=== PATIENT | female | born 1950 | race Caucasian/White ===

== ENCOUNTER → 2016-10-18 | Outpatient (CLI) | payer BC | END | disposition home or self-care (01) | LOC: LABWHC1 12:45 | PROVIDERS: ATTEND Orthopaedic Surgery Orthopaedic Surgery of the Spine | DX: Z01.818 Encounter for other preprocedural examination (principal) | CPT/HCPCS: 86850; 86900; 86901 ==

== ENCOUNTER 2016-10-20 11:13 | Day surgery (SDC) | payer BC ==
[2016-10-14 12:23] VITALS: BMI 30.2
[~2016-10-20 11:13] MED LIST: BACITRACIN 50,000 UNIT, POLYMYXIN B 500,000 UNIT in SODIUM CHLORIDE 0.9% IRRIGATIO 1,00... IRRIGATION ONE; CLINDAMYCIN 900 MG in DEXTROSE 5% IN WATER 50 ML IVPB ONE; LACTATED RINGERS 1,000 ML IV SCH; LIDOCAINE 1% 20 ML VIAL (10MG/ML) FOR IV START INTRADERMA PRN
[2016-10-20] MEDS ORDERED: LIDOCAINE 1% 20 ML VIAL (10MG/ML) FOR IV START INTRADERMA ONE (12:26)
[2016-10-20] MEDS: ONDANSETRON 4 MG/2 ML VIAL IVP ONE ×2 (12:32→14:52)
[2016-10-20] MEDS ORDERED: SUCCINYLCHOLINE CHLORIDE 100 MG/5 ML SYR IV ONE (13:02)
[2016-10-20] MEDS ORDERED: MIDAZOLAM 2 MG/2 ML VIAL ONE (13:02)
[2016-10-20] MEDS ORDERED: PROPOFOL 10 MG/ML 20 ML VIAL IV ONE (13:02)
[2016-10-20] MEDS ORDERED: GELATIN SPONGE,ABSORB (LARGE) 1 EACH SPONGE TOPICAL ONE (13:02)
[2016-10-20] MEDS ORDERED: LIDOCAINE 1% INJ 10MG/ML (20 ML MDV) ONE (13:02)
[2016-10-20] MEDS ORDERED: DEXAMETHASONE SOD PHOS (MDV) 100 MG/10 ML VIAL ONE (13:02)
[2016-10-20] MEDS ORDERED: THROMBIN (BOVINE) 5,000 UNIT VIAL TOPICAL ONE (13:02)
[2016-10-20] MEDS ORDERED: LIDOCAINE 0.5%-EPI 1:200,000 50 ML VIAL SQ ONE (13:02)
[2016-10-20] MEDS ORDERED: methylPREDNISolone ACETATE 40 MG/ML 1 ML VIAL MISCELLANE ONE (13:02)
[2016-10-20] MEDS ORDERED: KETOROLAC 30 MG/ML 1 ML VIAL ONE (13:02)
[2016-10-20] MEDS ORDERED: HYDROmorphone (PF) 1 MG/ML ONE (13:02)
[2016-10-20] MEDS ORDERED: fentaNYL (PF) 50 MCG/ML 2 ML AMP ONE (13:02)
--- NOTE | 2016-10-20 13:55 | XR ---
EXAMINATION TYPE: XR lumbar spine 1V DATE OF EXAM: 10/20/2016 1:49 PM COMPARISON: NONE HISTORY: Laminectomy TECHNIQUE: 4 seconds of fluoroscopy time was provided. 1 image is presented. IMPRESSION: 1. Fluoroscopy for procedure documentation.
--- NOTE | 2016-10-20 13:57 | FL ---
Fluoroscopy INDICATION: Pain FINDINGS: Fluoroscopy time: 4 seconds. IMPRESSIONS: 1. Documentation of fluoroscopy.
[2016-10-20] MEDS ORDERED: LACTATED RINGERS 1,000 ML IV ONE (14:11)
[2016-10-20] MEDS ORDERED: DIAZEPAM 5 MG TAB PO PRN (14:21)
[2016-10-20] MEDS ORDERED: HYDROmorphone 1 MG/ML 1 ML SYRINGE IVP PRN (14:21)
[2016-10-20] MEDS ORDERED: BENZOCAINE/MENTHOL LOZENG 1 EACH LOZENGE MUCOUS MEM PRN (14:21)
[2016-10-20] MEDS ORDERED: ONDANSETRON 4 MG/2 ML VIAL IVP PRN (14:22)
[2016-10-20] MEDS ORDERED: IBUPROFEN 600 MG TAB PO PRN (14:22)
[2016-10-20] MEDS ORDERED: HYDROcodone/APAP 5-325MG 1 EACH TAB PO PRN (14:25)
--- NOTE | 2016-10-20 14:31 | P.OP ---
Date of Procedure: 10/20/16 Preoperative Diagnosis: Herniated nucleus pulposus L4 5 Right lower extremity weakness and radiculopathy Spondylolisthesis Postoperative Diagnosis: Same Anesthesia: GETA Pathology: none sent Condition: stable Disposition: PACU Description of Procedure: BRIEF OPERATIVE NOTE Preoperative Diagnosis: Herniated nucleus pulposis L4 5, right lower extremity radiculopathy and weakness, spondylolisthesis Postoperative Diagnosis: Same Procedure: Laminectomy and decompression L4-L5 Discectomy for decompression L4-L5 Use of fluoroscopic guidance Surgeon: Dr. Joseph Reporting Coordinator: Gio Hernandez is present throughout the entire the case persistence during positioning, dissection, exposure, visualization, and all crucial elements of the case as well as closure. Anesthesia: General anesthesia Estimated blood loss: Less than 25 mL Complications: None apparent Components implanted: None Disposition: To recovery room in good stable condition. OPERATIVE INDICATIONS The patient has been having issues in their lower back and lower extremities. The patient was found have a herniated nucleus pulposis at L4 5 with severe stenosis at the right foramen which correlated with her severe right lower extremity pain and radiculopathy with some weakness. The patient was also found to have spondylolisthesis L4 5 and L3 4. The patient has been through conservative treatment. We discussed various treatment options including surgery, and the patient wishes to proceed with surgery; the patient was interested in trying decompression alone with discectomy at L4 5. we discussed at length the possibility of decompression and fusion versus possibility of decompression alone. We discussed the risk, patient's alternatives and benefits associate with these different approaches. With a spondylolisthesis the patient and her understood the risk of recurrent herniation, stenosis or disc degeneration. We discussed the risk, patient's alternatives and benefits of surgery including but not limited to, risk of bleeding risk of infection, risk of need for further surgery, risk of decreased, loss of motion, loss of function, nerve damage, paralysis, heart attack, blindness and . OPERATIVE SUMMARY After discussing all the risks, patient alternatives and benefits at length, the patient elected to proceed with surgical intervention, signed informed consent, and presented for their procedure. The patient was seen and examined in the preoperative holding area and the surgical site was marked. The patient was given antibiotics and brought to the operating room. The patient was sedated and intubated by anesthesia in standard fashion. The patient was positioned on to the operating room table in a prone position on the appropriate frame which was well-padded and well molded. We were careful to pad any bony prominences and pressure points. We were careful to maintain the patient's cervical spine and good neutral alignment and position throughout. The patient was prepped and draped in a normal standard fashion. An appropriate timeout and keystone protocol performed. We were able to proceed with the surgery. Fluoroscopy was utilized to establish the appropriate level. The local wound area was infiltrated with local anesthetic. An incision was made at the midline longitudinally over the appropriate levels At L4 5. Dissection was taken down subcutaneously to the level of the fascia which was split midline. Dissection was taken over the lamina. Intraoperative fluoroscopy was taken which showed a marker at the appropriate level At L4 5 at L4 5. With the appropriate level positively confirmed, we were able to proceed with laminectomy. The wound was copiously irrigated and suctioned dry as had been done periodically throughout the case. I performed a laminectomy with a combination of curettes and a high-speed bur and Kerrison rongeurs. A small medial facetectomy was performed again further access. A partial foraminotomy was also performed. Portions of the ligamentum flavum were taken down to expose the dura and traversing nerve root. I was able to mobilize the traversing nerve root and gain access to the disc space. Note was made of obvious compression from the disc. Protecting the soft tissue structures, a small annulotomy was established. There was a large rent in the disc as well and there were extruded fragments. I was able to remove all extruded fragments of disc. I was able to perform discectomy and remove any extruded disc fragments and any loose fragments from within the disc itself. There is some disc desiccation noted. I tried to preserve the disc annulus that appeared stable. There were no further extruded fragments noted. There is no evidence of dural tear or leak. Good hemostasis maintained. The wound was copiously irrigated and suctioned dry. Good decompression and discectomy was noted. We were able to proceed with closure. The fascia was closed for a watertight closure. The subcuticular tissue was closed with absorbable suture. The wound was cleaned and dried and dressed with the appropriate dressing. The drapes were broken down. The patient was gently rolled back onto their hospital bed being careful to maintain their cervical spine and good neutral alignment and position. They were woken up by anesthesia, extubated, and brought to the recovery room in good stable condition. The patient will be admitted to the hospital for observation and for appropriate postoperative care, medical management and monitoring. We will continue to follow them closely about the postoperative course.
[2016-10-20] MEDS: HYDROmorphone 1 MG/ML 1 ML SYRINGE IVP PRN ×2 (14:52→14:59)
[2016-10-20] MEDS: GABAPENTIN 400 MG CAP PO SCH ×2 (16:27→19:28)
[2016-10-20] MEDS: CYCLOBENZAPRINE 10 MG TAB PO SCH ×2 (17:26→21:01)
[2016-10-20] MEDS: SYMBICORT 160-4.5 MCG INHALER INHALATION SCH (19:15)
[2016-10-20] MEDS: SODIUM CHLORIDE 0.9% 1,000 ML IV SCH (20:58)
[2016-10-20] MEDS ORDERED: LOSARTAN-HCTZ 50-12.5 MG 1 EACH TAB PO SCH (21:00)
[2016-10-20] MEDS ORDERED: ATORVASTATIN 40 MG TAB PO SCH (21:00)
[2016-10-21] MEDS: CLINDAMYCIN 300 MG in DEXTROSE 5% IN WATER 50 ML IVPB SCH ×4 (00:17→07:38)
[2016-10-21] MEDS: SODIUM CHLORIDE 0.9% 1,000 ML IV SCH (05:35)
[2016-10-21] MEDS ORDERED: LEVOTHYROXINE 50 MCG TAB PO SCH (06:30)
[2016-10-21 07:50] VITALS: BP 140/69; PULSE 98; RESP 15; TEMP 98
[2016-10-21] MEDS: GABAPENTIN 400 MG CAP PO SCH (08:27)
[2016-10-21] MEDS: CYCLOBENZAPRINE 10 MG TAB PO SCH (08:27)
--- NOTE | 2016-10-21 08:50 | P.DS ---
Providers Date of admission: 10/20/2016 Expected date of discharge: 10/21/16 Attending physician: Elizabeth Joseph Primary care physician: Neeta Jeff - Discharge Diagnosis(es) (1) Herniated nucleus pulposus, L4-5 right Current Visit: Yes Status: Acute (2) Lumbar back pain with radiculopathy affecting right lower extremity Current Visit: Yes Status: Acute (3) Right leg weakness Current Visit: Yes Status: Acute (4) Spondylolisthesis, lumbar region Current Visit: Yes Status: Acute Hospital Course: This is a pleasant 66 year old female who presented with significant right lower extremity radiculopathy, L4-5 herniated nucleus pulposus, left lower external weakness, and spondylolisthesis who failed outpatient conservative therapy. She admitted for laminectomy and decompression with discectomy at L4- 5. The patient tolerated the procedure well and did well postoperatively. She states she has had significant improvement in her right lower extremity radiculopathy. She's been able to ambulate to the restroom without significant difficulty. She continues to have some discomfort but significantly less pain. She is not currently experiencing significant pain at the surgical site. Condition on day of discharge stable. Patient will be discharged home. Patient was cleared preoperatively for surgery by Dr. Loera. Patient currently denies any nausea, vomiting, fever, or chills. Patient is eating and voiding freely without difficulty. Patient may shower Tegaderm dressing intact. Patient may remove Tegaderm dressing in 3 days and shower without a dressing at that time. Patient should keep DermaBond intact and allow it to fall off naturally. Patient should refrain from driving until at least after their first follow-up appointment in the office. Patient should avoid excessive bending, lifting, and twisting; no lifting greater than 10 pounds. Patient states her pain has been controlled while in the hospital. She does take Flexeril home and states she does not have enough medication at home. She will be given a refill for this medication. She currently states she feels she has enough pain medication at home and she will not be given a pain medication prescription at discharge. Physical Exam on day of discharge: Patient is awake, alert, and oriented 3 Vital signs stable Good chest excursion with deep inspiration and expiration Abdomen soft nontender No signs or symptoms of DVT; no calf pain Extensor hallucis longus, plantarflexion, and dorsiflexion positive sustained bilateral lower extremities Incision is clean, dry, and intact; no erythema, purulence, or signs of infection Tegaderm dressing and non-stick Telfa intact Pneumatic cuffs intact bilateral lower extremities Procedures: Laminectomy and decompression with discectomy at L4-5 Patient Condition at Discharge: Stable Plan - Discharge Summary New Discharge Prescriptions: Cyclobenzaprine [Flexeril] 10 mg PO TID PRN #90 tab PRN Reason: Muscle Spasm Discharge Medication List Celecoxib [CeleBREX] 200 mg PO DAILY 06/23/14 [History] Levothyroxine Sodium [Synthroid] 50 mcg PO DAILY 06/23/14 [History] Losartan/Hydrochlorothiazide [Losartan-Hctz 50-12.5 mg Tab] 1 caplet PO HS 06/23 [History] Rosuvastatin [Crestor] 20 mg PO HS 06/23/14 [History] Vitamin E 1,000 unit PO DAILY 04/16/16 [History] Cyclobenzaprine [Flexeril] 10 mg PO TID #30 tab 08/19/16 [Rx] Budesonide/Formoterol Fumarate [Symbicort 160-4.5 Mcg Inhaler] 2 puff INHALATION BID 10/14/16 [History] Gabapentin [Neurontin] 400 mg PO TID 10/14/16 [History] HYDROcodone/APAP 5-325MG [[place] 5-325] 1 - 2 tab PO Q8H PRN 10/14/16 [History] Cyclobenzaprine [Flexeril] 10 mg PO TID PRN #90 tab 10/21/16 [Rx] Follow up Appointment(s)/Referral(s): Gio Alamo, JODEE [PHYSICIAN [employer]] - 2 Weeks (Patient may follow-up with Gio Alamo PA-C or Dr. Ranjit Joseph at [facility] in 2-3 weeks following discharge. ) Activity/Diet/Wound Care/Special Instructions: 1. Patient may shower Tegaderm dressing intact. 2. Patient may remove Tegaderm dressing in 3 days and shower without a dressing at that time. 3. Patient should keep Dermabond intact and allow it to fall off naturally. 4. Patient should refrain from driving until at least after their first follow- up appointment in the office. 5. Patient should avoid excessive bending, twisting, and lifting; no lifting greater than 10 pounds 6. Do not soak in tub Discharge Disposition: HOME SELF-CARE
[2016-10-21] MEDS: SYMBICORT 160-4.5 MCG INHALER INHALATION SCH (08:55)
[2016-10-21] MEDS ORDERED: MELOXICAM 7.5 MG TAB PO SCH (09:00)
[2016-10-21] MEDS ORDERED: VITAMIN E (DL,TOCOPHERYL ACET) 400 UNIT CAP PO SCH (09:00)
== END 2016-10-21 12:49 | disposition home or self-care (01) ==
LOC: OR 11:13 → 3SUR 14:23 → OR 10-21 12:49
PROVIDERS: ATTEND Orthopaedic Surgery Orthopaedic Surgery of the Spine
DX: M51.16 Intervertebral disc disorders with radiculopathy, lumbar region (principal); M48.06 Spinal stenosis, lumbar region; M43.16 Spondylolisthesis, lumbar region; M41.26 Other idiopathic scoliosis, lumbar region; I10 Essential (primary) hypertension; E78.5 Hyperlipidemia, unspecified; E03.9 Hypothyroidism, unspecified; J44.9 Chronic obstructive pulmonary disease, unspecified; J45.909 Unspecified asthma, uncomplicated; G47.33 Obstructive sleep apnea (adult) (pediatric); Z79.891 Long term (current) use of opiate analgesic; Z79.51 Long term (current) use of inhaled steroids; Z79.1 Long term (current) use of non-steroidal anti-inflammatories (NSAID); Z99.81 Dependence on supplemental oxygen; Z79.899 Other long term (current) drug therapy; Z88.8 Allergy status to other drugs, medicaments and biological substances; Z87.891 Personal history of nicotine dependence; Z88.1 Allergy status to other antibiotic agents
CPT/HCPCS: 94640 ×2; 97161; 86900; 86901; 84132; 86850; 72020; 63030; J1030; J2405; J1170

== ENCOUNTER → 2017-01-21 | Outpatient (CLI) | payer BC ==
--- NOTE | 2017-01-21 10:07 | CT ---
EXAMINATION TYPE: CT abdomen pelvis w con DATE OF EXAM: 01/21/2017 9:53 AM HISTORY: Ventral hernia per order. Recurrent pain, history of prior hernia repair surgery. CT DLP: 969.90mGycm Automated Exposure Control for Dose Reduction was Utilized. CONTRAST: CT scan of the abdomen and pelvis is performed with IV Contrast, patient injected with 100 ml mL of O mnipaque 300. COMPARISON: CT abdomen June 29, 2014 FINDINGS: LUNG BASES: Linear hyperdensities possible calcified pleural plaques or surgical material right lung base are redemonstrated. LIVER/GB: Liver remains low dense suggesting fatty infiltration. Portion of liver protrudes superior to the linear densities unchanged from prior study along the anterior aspect. PANCREAS: Some mild generalized fat replaced atrophy pancreas is redemonstrated. SPLEEN: No significant abnormality is seen. ADRENALS: No significant abnormality is seen. KIDNEYS: No significant abnormality is seen. BOWEL: The oral contrast does not reach colonic level making evaluation slightly suboptimal. There is no suspicious small or large bowel dilatation identified. Small bowel feces sign in the terminal ile um is present. There is poor distention of the transverse and left colon making evaluation at this le nelli suboptimal. There is occasional colonic diverticula. There is no convincing evidence for acute di verticulitis. UTERUS/ADNEXA: Uterus is surgically absent or markedly atrophic in appearance. LYMPH NODES: No greater than 1cm abdominal or pelvic lymph nodes are appreciated. OSSEOUS STRUCTURES: There is slight grade 1 anterolisthesis of L3 on L4 and L4 and L5. Mild multileve l disc space narrowing is present. There is vacuum disc phenomenon L4-L5 level. OTHER: There is moderate to severe calcified atherosclerotic change of the abdominal aorta. There is surgical clip in left pelvis near axial image 72. Slight prominence of the suprahepatic portion of IVC makes type I aneurysm not excluded seen best axi al image 16 and coronal image 59. There are coils ventral wall hernia repair surgery with hyperdense linear mesh seen best on coronal i mage 9. Just inferior to this there is new or recurrent narrowneck fat-containing ventral wall hernia on axial image 41 along inferior portion of mesh measuring 1.4 cm transversely. IMPRESSION: There has been prior ventral wall hernia repair surgery, just inferior to this there is n ew narrow neck fat-containing ventral wall hernia in the midline of the mid abdomen identified.
== END ==
LOC: RADCTMAIN 09:01
PROVIDERS: ATTEND Family Medicine
DX: K43.9 Ventral hernia without obstruction or gangrene (principal)
CPT/HCPCS: 74177; Q9967

== ENCOUNTER → 2017-04-23 | Outpatient (CLI) | payer MEDICARE ==
--- NOTE | 2017-04-24 07:30 | XR ---
EXAMINATION TYPE: XR lumbosacral spine min 4V DATE OF EXAM: 04/23/2017 COMPARISON: NONE HISTORY: Numbness right leg TECHNIQUE: 5 view lumbar spine FINDINGS: There is a grade 1 spondylolisthesis of L4 anterior to L5. Diffuse narrowing of disc height is present throughout the lumbar spine greater in the posterior aspect. Note is made of vascular garrett cification within the aorta. Facet degenerative changes are present bilaterally. No spondylolytic def ects are evident. There 5 lumbar-type vertebral bodies. The pedicles are intact. IMPRESSION: 1. Mild degenerative disc changes. 2. Grade 1 spondylolisthesis of L4 anterior on L5
== END | disposition home or self-care (01) ==
LOC: RADXRYALE 10:15
PROVIDERS: ATTEND Nurse Practitioner Family
DX: M43.16 Spondylolisthesis, lumbar region (principal)
CPT/HCPCS: 72110

== ENCOUNTER → 2017-09-21 | Outpatient (CLI) | payer MEDICARE ==
--- NOTE | 2017-09-22 10:09 | MM ---
Reason for exam: screening (asymptomatic). Last mammogram was performed 1 year and 2 months ago. History: Patient is postmenopausal. Physical Findings: A clinical breast exam by your physician is recommended on an annual basis and results should be correlated with mammographic findings. MG 3D Screening Mammo W/Cad Bilateral CC and MLO view(s) were taken. Prior study comparison: July 24, 2016, bilateral MG screening mammo w CAD. October 18, 2014, bilateral MG screening mammo w CAD. The breast tissue is extremely dense which could obscure a lesion on mammography. Finding: There are typically benign vascular, linear calcifications. There is no discrete abnormality. No significant changes in finding since July 24, 2016 and October 18, 2014. ASSESSMENT: Benign, BI-RAD 2 RECOMMENDATION: Routine screening mammogram of both breasts in 1 year.
== END | disposition home or self-care (01) ==
LOC: RADMAMWWP 09:26
PROVIDERS: ATTEND Family Medicine
DX: Z12.31 Encounter for screening mammogram for malignant neoplasm of breast (principal)
CPT/HCPCS: 77063; G0202

== ENCOUNTER → 2017-09-30 | Outpatient (CLI) | payer MEDICARE ==
[2017-09-30 13:17] LABS: Blood Urea Nitrogen 14 mg/dL (7-17); Non-African American GFR(MDRD) >60 (>60 ml/min/1.73 sqM)
--- NOTE | 2017-09-30 14:18 | CT ---
EXAMINATION TYPE: CT abdomen pelvis w con DATE OF EXAM: 09/30/2017 HISTORY: Hernia, distention per order. CT DLP: 1145.1mGycm Automated Exposure Control for Dose Reduction was Utilized. CONTRAST: CT scan of the abdomen and pelvis is performed with IV Contrast, patient injected with 100 mL of Omni paque 300. COMPARISON: CT abdomen and pelvis January 21, 2017. FINDINGS: LUNG BASES: There is coronary artery calcification redemonstrated which is noted marker for coronary artery disease. There is linear hyperdensities possible calcified pleural plaques or surgical materia l right lung base redemonstrated. LIVER/GB: Liver remains diffusely low dense consistent with fatty infiltration. PANCREAS: Some mild diffuse fat replaced atrophy remains present. SPLEEN: No significant abnormality is seen. ADRENALS: No significant abnormality is seen. KIDNEYS: No significant abnormality is seen. BOWEL: Oral contrast reaches level of right colon. There is no suspicious small or large bowel dilata tion. A few scattered colonic diverticula are redemonstrated. There is no CT evidence for acute diver ticulitis. UTERUS/ADNEXA: Uterus is surgically absent. LYMPH NODES: No greater than 1cm abdominal or pelvic lymph nodes are appreciated. OSSEOUS STRUCTURES: There is mild to moderate multilevel spurring in the thoracic spine. There is sli ght grade 1 anterolisthesis of L3 on L4 and L4-L5 redemonstrated. There is multilevel facet arthropat hy mid to lower lumbar spine. OTHER: Surgical clips left pelvis is redemonstrated on axial image 77. Stable slightly prominent supr ahepatic portion of IVC on coronal image 60. There is fairly moderate calcified plaque in aorta exten ding into iliac branch vessels redemonstrated. There is redemonstration of coils and mesh from ventral wall hernia repair surgery. There is persiste nt narrow neck hernia just below this containing fat and tiny mesenteric vessel seen best axial image 45 not significantly changed in size or appearance from prior. IMPRESSION: Stable small size narrowneck ventral wall hernia just below the site of surgery. No ascit es is seen. No new hernia is evident. No significant change from prior CT is noted.
== END | disposition home or self-care (01) ==
LOC: RADCTMAIN 12:12
PROVIDERS: ATTEND Surgery
DX: K43.9 Ventral hernia without obstruction or gangrene (principal)
CPT/HCPCS: 82565; 84520; 74177; 36415; Q9967

== ENCOUNTER → 2018-02-02 | Outpatient (CLI) | payer MEDICARE | END | disposition home or self-care (01) | LOC: LABWHC1 08:35 | PROVIDERS: ATTEND Surgery Plastic and Reconstructive Surgery | DX: Z01.812 Encounter for preprocedural laboratory examination (principal) | CPT/HCPCS: 36415; 84132 ==

== ENCOUNTER 2018-02-05 08:51 | Day surgery (SDC) | payer MEDICARE ==
[2018-01-27 10:42] VITALS: BMI 31.0
--- NOTE | 2018-02-05 08:40 | P.GSHP ---
History of Present Illness H&P Date: 02/05/18 CHIEF COMPLAINT: Incisional hernia, recurrent HISTORY OF PRESENT ILLNESS: The patient is a 67-year-old female who presents with a history of swelling along the upper abdomen. Findings were consistent with recurrent incisional hernia. Now she presents for further evaluation and management. PAST MEDICAL HISTORY: Please see list. PAST SURGICAL HISTORY: Please see list. MEDICATIONS: Please see list. ALLERGIES: Please see list. SOCIAL HISTORY: No illicit drug use FAMILY HISTORY: No reports of Crohn disease or ulcerative colitis. REVIEW OF ORGAN SYSTEMS: CONSTITUTIONAL: No reports of fevers or chills. GI: Denies any blood in stools or constipation. PHYSICAL EXAM: VITAL SIGNS: Stable GENERAL: Well-developed pleasant female in no acute distress. HEENT: No scleral icterus. Extraocular movements grossly intact. Moist buccal mucosa. NECK: Supple without lymphadenopathy. CHEST: Unlabored respirations. Equal bilateral excursions. CARDIOVASCULAR: Regular rate and rhythm. Distal 2+ pulses. ABDOMEN: Soft, nondistended. Tender along the epigastrium. Protuberant. MUSCULOSKELETAL: No clubbing, cyanosis, or edema. ASSESSMENT: 1. Incisional ventral hernia, recurrent 2. Morbid obesity, BMI 31.1 3. Paralyzed diaphragm 4. Hypertensive cardiomyopathy 5. History of multiple abdominal surgeries PLAN: 1. Recommend proceeding with robotic ventral hernia repair with mesh, possible open 2. Benefits and risks of surgical intervention was discussed including possibility of open technique. 3. DVT prophylaxis. 4. Antibiotic prophylaxis. 5. Inpatient hospitalization for possible open ventral hernia repair. Past Medical History Past Medical History: Asthma, COPD, Diabetes Mellitus, GERD/Reflux, Hyperlipidemia, Hypertension, Osteoarthritis (OA), Rheumatoid Arthritis (RA), Sleep Apnea/CPAP/BIPAP, Thyroid Disorder Additional Past Medical History / Comment(s): USES O2 @2.5 L AT NIGHT FOR SLEEP APNEA History of Any Multi-Drug Resistant Organisms: None Reported Past Surgical History: Back Surgery, Bladder Surgery, Hernia Repair, Hysterectomy, Orthopedic Surgery, Tonsillectomy Additional Past Surgical History / Comment(s): THORACOTOMY X2 FOR A PARALYZED DIAPHRAGM, rt bunionectomy, Past Anesthesia/Blood Transfusion Reactions: No Reported Reaction Additional Past Anesthesia/Blood Transfusion Reaction / Comment(s): "I can not lay on my back flat-can't breath" Smoking Status: Former smoker - Past Family History Mother Family Medical History: Deep Vein Thrombosis (DVT) Additional Family Medical History / Comment(s): emphysema Father Family Medical History: Coronary Artery Disease (CAD), Diabetes Mellitus Additional Family Medical History / Comment(s): [employer], [employer]ER REPLACMENT ,PACEMAKER Medications and Allergies Home Medications Medication Instructions Recorded Confirmed Type Celecoxib [CeleBREX] 200 mg PO W/SUPPER 06/23/14 01/27/18 History Levothyroxine Sodium [Synthroid] 50 mcg PO DAILY 06/23/14 01/27/18 History Losartan/Hydrochlorothiazide 0.5 tab PO HS 06/23/14 01/27/18 History [Losartan-Hctz 50-12.5 mg Tab] Budesonide/Formoterol Fumarate 2 puff INHALATION BID 10/14/16 01/27/18 History [Symbicort 160-4.5 Mcg Inhaler] ALPRAZolam [Xanax] 0.5 mg PO BID PRN 10/30/17 01/27/18 History Calcium Carbonate [Calcium] 1,200 mg PO DAILY 10/30/17 01/27/18 History Gabapentin [Neurontin] 300 mg PO DAILY PRN 10/30/17 01/27/18 History Omeprazole [PriLOSEC] 20 mg PO AC-BRKFST 10/30/17 01/27/18 History Pravastatin Sodium 80 mg PO HS 10/30/17 01/27/18 History Diltiazem HCl 120 mg PO DAILY 01/27/18 01/27/18 History metFORMIN HCL [Glucophage] 500 mg PO DAILY 01/27/18 01/27/18 History Allergies Allergy/AdvReac Type Severity Reaction Status Date / Time cephalexin monohydrate Allergy Rash/Hives Verified 01/27/18 09:56 [From Keflex] lisinopril Allergy Cough Verified 01/27/18 09:56
[~2018-02-05 08:51] MED LIST changes: -BACITRACIN 50,000 UNIT, POLYMYXIN B 500,000 UNIT in SODIUM CHLORIDE 0.9% IRRIGATIO 1,00... IRRIGATION ONE; +DEXAMETHASONE SOD PHOSPHATE 10 MG/ML 1 ML VIAL IV ONE; +HEPARIN SODIUM,PORCINE 5,000 UNIT/ML 1 ML VIAL SQ ONE; +LEVOFLOXACIN 500MG-D5W PMX 500 MG in DEXTROSE/WATER 1 100ML.BAG IVPB ONE; +MORPHINE SULFATE 4 MG/ML SYRINGE IV PRN; +SCOPOLAMINE 1.5MG/72HR PATCH TRANSDERM ONE; +ceFAZolin IN SWFI 2 GM/20 ML SYRINGE IVP ONE; +fentaNYL (PF) 50 MCG/ML 2 ML AMP IV PRN
[2018-02-05] MEDS ORDERED: LACTATED RINGERS 1,000 ML IV ONE (09:41)
[2018-02-05 10:14] LABS: Glucose,Whole Blood 130 mg/dL (75-99)
[2018-02-05] MEDS ORDERED: fentaNYL (PF) 50 MCG/ML 2 ML AMP IVP ONE ×2 (10:40→10:48)
[2018-02-05] MEDS: MIDAZOLAM 2 MG/2 ML VIAL IV PRN ×2 (10:40→10:48)
[2018-02-05] MEDS ORDERED: BUPIVACAINE (PF) 0.25% 30 ML VIAL SQ ONE ×2 (13:27)
[2018-02-05] MEDS ORDERED: fentaNYL (PF) 50 MCG/ML 2 ML AMP ONE (13:36)
[2018-02-05] MEDS ORDERED: LABETALOL 5 MG/ML VIAL MDV ONE (13:36)
[2018-02-05] MEDS ORDERED: PROPOFOL 10 MG/ML 20 ML VIAL IV ONE (13:36)
[2018-02-05] MEDS ORDERED: LIDOCAINE 1% INJ 10MG/ML (20 ML MDV) ONE (13:36)
[2018-02-05] MEDS ORDERED: ROPIVACAINE 5 MG/ML 30 ML VIAL ONE (13:36)
[2018-02-05] MEDS ORDERED: ROCURONIUM BROMIDE 10 MG/ML 10 ML VIAL IV ONE (13:36)
[2018-02-05] MEDS ORDERED: ceFAZolin 1,000 MG VIAL ONE (13:36)
[2018-02-05] MEDS ORDERED: MIDAZOLAM 2 MG/2 ML VIAL ONE (13:36)
[2018-02-05] MEDS ORDERED: LIDOCAINE 2%-EPI 1:100,000 20 ML VIAL ONE (13:36)
--- NOTE | 2018-02-05 15:08 | P.OP ---
Date of Procedure: 02/05/18 Description of Procedure: SURGEON: AURORA GAVIN MD DIGESTER OPERATOR: 1. TABATHA JHA PREOPERATIVE DIAGNOSES: 1. Recurrent incisional ventral hernia, epigastrium 2. Chronic obstructive pulmonary disease 3. Obesity, BMI 31.1 4. Hypertensive cardiomyopathy 5. Diabetes type 2, [id number] 6. Gastroesophageal reflux disease 7. History of paralyzed left diaphragm 8. Hyperlipidemia 9. Rheumatoid arthritis 10. Obstructive sleep apnea 11. Hypothyroidism 12. Diffuse osteoarthritis POSTOPERATIVE DIAGNOSES: 1. Recurrent incisional ventral hernia, epigastrium, with incarceration, 4-cm 2. Chronic obstructive pulmonary disease 3. Obesity, BMI 31.1 4. Hypertensive cardiomyopathy 5. Diabetes type 2, [id number] 6. Gastroesophageal reflux disease 7. History of paralyzed left diaphragm 8. Hyperlipidemia 9. Rheumatoid arthritis 10. Obstructive sleep apnea 11. Hypothyroidism 12. Diffuse osteoarthritis OPERATION: 1. Robotic-assisted da Amber Xi laparoscopic lysis of adhesions 30 minutes 2. Robotic-assisted da Amber Xi laparoscopic repair of recurrent incarcerated incisional hernia 4 cm without mesh ANESTHESIA: General with local ESTIMATED BLOOD LOSS: 5 mL. SPECIMENS: None. COMPLICATIONS: None. INDICATIONS: The patient is a 67-year-old female who presents with recurrent incisional hernia. Surgical intervention with laparoscopic versus robotic and open techniques were reviewed. Placement of mesh was also reviewed. Benefits and risks were thoroughly described. Informed consent was obtained. DESCRIPTION OF PROCEDURE: The patient was brought into the operating room and laid in supine position. After general induction, the abdomen had been prepped and draped in standard sterile fashion. Ioban draping was also placed. Prior to incision, a timeout protocol was confirmed with surgical team regarding the patient's name including procedures to be performed. The robot was primed prior to the procedure. A field block using local anesthetic was placed along hernia site including the proposed port sites. Initial incision was made with an #11 blade along the left upper quadrant. A 0 degree 5 mm laparoscopic trocar entry was performed. Diagnostic laparoscopy demonstrated peritoneal adhesions involving the epigastrium consistent with her area of pain. Separately an incarcerated incisional hernia of the epigastrium was identified. A 8 mm trocar was placed along the left lateral abdominal wall approximately 12 cm lateral to the lower midline. An 8 mm port was placed along the left lower quadrant under direct localization. The 5-mm port was exchanged for an 8 mm robotic port. Placements of the ports were 15 cm from the target anatomy and approximately 8 cm apart. The da Amber Xi robot was previously primed, prepped and draped then docked along the left side of the patient. I then sat at the robot Da Amber Xi console where working arms of the robot were vessel sealer, needle funeral limousine driver, and graspers placed by the service assistant. Adhesions along the epigastrium were initially addressed with vessel sealer including blunt dissection for the greater omentum to the abdominal wall. Fascial defect of 3 cm was identified including laxity of the abdominal wall. Attention was brought to the umbilicus where an incarcerated incisional hernia was identified also containing omentum. The incarcerated contents was reduced as the peritoneal fat was cleaned from the abdominal wall. Next, hemostasis was checked with cautery. The hernia defect of 4-cm was oversewn using #1 Stratafix with imbrication 3. A final endoscopic imaging was obtained. All instruments and pneumoperitoneum were evacuated from the abdominal cavity. The da Amber Xi robot was undocked from the patient. I re-scrubbed into the case for closure of incisions. The incisions were reapproximated using 4-0 Monocryl in an interrupted subcuticular fashion. Exofin liquid glue was applied to the skin after cleansing the skin with normal saline and dilute hydrogen peroxide. An abdominal binder was placed. At the end of the procedure, needle, sponge, and instrument count had been verified correct by regional vice president surgical sales. The patient was taken to the postanesthesia care unit in stable condition. FINDINGS: 1. Recurrent incarcerated incisional hernia epigastrium. 2. Abdominal wall laxity with diastasis recti of the epigastrium repaired
--- NOTE | 2018-02-05 15:30 | P.PN ---
Progress Note - Text Progress Note Date: 02/05/18 Patient's family described intraoperative findings including cirrhotic liver. Her disclosed that the patient is a silent alcoholic drinking more than a fifth of whiskey daily. Patient will need immediate alcohol avoidance for postoperative recovery as features of her surgery is consistent with being malnourished and poor tissue integrity.
[2018-02-05 15:41] VITALS: TEMP 99
[2018-02-05] MEDS ORDERED: MORPHINE SULFATE 4 MG/ML SYRINGE IVP ONE ×2 (15:51→15:58)
[2018-02-05] MEDS ORDERED: HYDROcodone/APAP 5-325MG 1 EACH TAB PO ONE (16:37)
[2018-02-05 16:54] VITALS: RESP 16
[2018-02-05 17:00] VITALS: BP 128/74; PULSE 76
== END 2018-02-05 17:19 | disposition home or self-care (01) ==
LOC: OR 08:51
PROVIDERS: ATTEND Surgery Plastic and Reconstructive Surgery
DX: K43.0 Incisional hernia with obstruction, without gangrene (principal); K66.0 Peritoneal adhesions (postprocedural) (postinfection); Q79.59 Other congenital malformations of abdominal wall; E66.01 Morbid (severe) obesity due to excess calories; Z68.31 Body mass index [BMI] 31.0-31.9, adult; I11.9 Hypertensive heart disease without heart failure; Z87.891 Personal history of nicotine dependence; J44.9 Chronic obstructive pulmonary disease, unspecified; E11.9 Type 2 diabetes mellitus without complications; Z79.84 Long term (current) use of oral hypoglycemic drugs; K21.9 Gastro-esophageal reflux disease without esophagitis; K74.60 Unspecified cirrhosis of liver; E78.5 Hyperlipidemia, unspecified; M19.90 Unspecified osteoarthritis, unspecified site; Z87.09 Personal history of other diseases of the respiratory system; M06.9 Rheumatoid arthritis, unspecified; G47.33 Obstructive sleep apnea (adult) (pediatric); Z99.81 Dependence on supplemental oxygen; E03.9 Hypothyroidism, unspecified; Z79.890 Hormone replacement therapy; Z79.51 Long term (current) use of inhaled steroids; Z79.899 Other long term (current) drug therapy; Z88.8 Allergy status to other drugs, medicaments and biological substances
CPT/HCPCS: 49657; J2250; J2270; J1644; J1100; J3010; J2795; 86850; 86900; 86901

== ENCOUNTER → 2018-12-15 | Outpatient (CLI) | payer MEDICARE ==
--- NOTE | 2018-12-15 13:17 | MM ---
Reason for exam: screening (asymptomatic). Last mammogram was performed 1 year and 3 months ago. History: Patient is postmenopausal. Physical Findings: A clinical breast exam by your physician is recommended on an annual basis and results should be correlated with mammographic findings. MG 3D Screening Mammo W/Cad Bilateral CC and MLO view(s) were taken. Prior study comparison: September 21, 2017, bilateral MG 3d screening mammo w/cad. July 24, 2016, bilateral MG screening mammo w CAD. The breast tissue is heterogeneously dense. This may lower the sensitivity of mammography. There are benign appearing round vascular calcifications bilaterally. There is no discrete abnormality. ASSESSMENT: Benign, BI-RAD 2 RECOMMENDATION: Routine screening mammogram of both breasts in 1 year.
== END | disposition home or self-care (01) ==
LOC: RADMAMWWP 07:52
PROVIDERS: ATTEND Family Medicine
DX: Z12.31 Encounter for screening mammogram for malignant neoplasm of breast (principal)
CPT/HCPCS: 77063; 77067

== ENCOUNTER 2019-02-05 10:56 | Observation (INO) | payer MEDICARE ==
[2019-02-05] MEDS ORDERED: ASPIRIN 81 MG PO STA (11:11)
[2019-02-05] MEDS ORDERED: NITROGLYCERIN OINT 1 INCH/GM PACKET TOPICAL STA (11:11)
--- NOTE | 2019-02-05 11:17 | ED ---
General Adult HPI - General Chief complaint: Chest Pain Stated complaint: CHEST PAIN Time Seen by Provider: 02/05/19 11:00 Source: patient, RN notes reviewed Mode of arrival: wheelchair Limitations: no limitations - History of Present Illness Initial comments: This is a 68-year-old female presents emergency Department complaining of chest pain since . Patient states the pain has not improved with time. Impacted is gotten worse per patient states the pain does seem to radiate down the left arm a little and into her jaw. Patient also states she's mildly short of breath. Patient states the pain is worse with deep breathing and with palpat ion. Patient states she drives about 5-6 hours twice a week to [place] and [facility] and has been doing the last 20 weeks. Patient denies any diaphoretic episodes. Patient denies any nausea. Patient denies abdominal pain patient denies any vomiting diarrhea. Patient denies any recent fever chills or cough. Patient denies any lightheadedness dizziness or near syncopal episode. Patient denies headache patient denies any numbness or weakness. - Related Data Home Medications Medication Instructions Recorded Confirmed Celecoxib [CeleBREX] 200 mg PO W/SUPPER 06/23/14 02/05/19 Levothyroxine Sodium [Synthroid] 50 mcg PO DAILY 06/23/14 02/05/19 Losartan/Hydrochlorothiazide 0.5 tab PO HS 06/23/14 02/05/19 [Losartan-Hctz 50-12.5 mg Tab] Budesonide/Formoterol Fumarate 2 puff INHALATION RT-BID 10/14/16 02/05/19 [Symbicort 160-4.5 Mcg Inhaler] Calcium Carbonate [Calcium] 1,200 mg PO DAILY 10/30/17 02/05/19 Gabapentin [Neurontin] 300 mg PO DAILY PRN 10/30/17 02/05/19 Omeprazole [PriLOSEC] 20 mg PO AC-BRKFST 10/30/17 02/05/19 Pravastatin Sodium 80 mg PO HS 10/30/17 02/05/19 Diltiazem HCl 120 mg PO DAILY 01/27/18 02/05/19 metFORMIN HCL [Glucophage] 500 mg PO DAILY 01/27/18 02/05/19 Loratadine [Claritin] 10 mg PO DAILY 02/05/19 02/05/19 Mirabegron [Myrbetriq] 25 mg PO DAILY 02/05/19 02/05/19 Allergies Allergy/AdvReac Type Severity Reaction Status Date / Time cephalexin monohydrate Allergy Rash/Hives Verified 02/05/19 11:40 [From Keflex] lisinopril Allergy Cough Verified 02/05/19 11:40 Review of Systems ROS Statement: Those systems with pertinent positive or pertinent negative responses have been documented in the HPI. ROS Other: All systems not noted in ROS Statement are negative. Past Medical History Past Medical History: Asthma, COPD, Diabetes Mellitus, GERD/Reflux, Hyperlipidemia, Hypertension, Osteoarthritis (OA), Rheumatoid Arthritis (RA), Sleep Apnea/CPAP/BIPAP, Thyroid Disorder Additional Past Medical History / Comment(s): USES O2 @2.5 L AT NIGHT FOR SLEEP APNEA History of Any Multi-Drug Resistant Organisms: None Reported Past Surgical History: Back Surgery, Bladder Surgery, Hernia Repair, Hysterectomy, Orthopedic Surgery, Tonsillectomy Additional Past Surgical History / Comment(s): THORACOTOMY X2 FOR A PARALYZED DIAPHRAGM, rt bunionectomy, Past Anesthesia/Blood Transfusion Reactions: No Reported Reaction Additional Past Anesthesia/Blood Transfusion Reaction / Comment(s): "I can not lay on my back flat-can't breath" Past Psychological History: Anxiety, Depression Smoking Status: Former smoker Past Alcohol Use History: Occasional Past Drug Use History: None Reported - Past Family History Mother Family Medical History: Deep Vein Thrombosis (DVT) Additional Family Medical History / Comment(s): emphysema Father Family Medical History: Coronary Artery Disease (CAD), Diabetes Mellitus Additional Family Medical History / Comment(s): TRIPLE BYPASS, EVIDENCE SPECIALIST R EPLACMENT,PACEMAKER General Exam - General Exam Comments Initial Comments: GENERAL: Patient is well-developed and well-nourished. Patient is nontoxic and well- hydrated and is in mild distress. ENT: Neck is soft and supple. No significant lymphadenopathy is noted. Oropharynx is clear. Moist mucous membranes. Neck has full range of motion without eliciting any pain. EYES: The sclera were anicteric and conjunctiva were pink and moist. Extraocular movements were intact and pupils were equal round and reactive to light. Eyelids were unremarkable. PULMONARY: Unlabored respirations. Good breath sounds bilaterally. No audible rales rhonchi or wheezing was noted. CARDIOVASCULAR: There is a regular rate and rhythm without any murmurs gallops or rubs. ABDOMEN: Soft and nontender with normal bowel sounds. SKIN: Skin is clear with no lesions or rashes and otherwise unremarkable. NEUROLOGIC: Patient is alert and oriented x3. Cranial nerves II through XII are grossly intact. Motor and sensory are also intact. Normal speech, volume and content. Symmetrical smile. MUSCULOSKELETAL: Normal extremities with adequate strength and full range of motion. LYMPHATICS: No significant lymphadenopathy is noted PSYCHIATRIC: Normal psychiatric evaluation. Limitations: no limitations Course Vital Signs 02/05/19 10:59 Temperature 98.1 F Pulse Rate 94 Respiratory 18 Rate Blood Pressure 166/85 O2 Sat by Pulse 96 Oximetry Medical Decision Making - Medical Decision Making Patient's EKG shows normal sinus rhythm at 93 bpm VT interval 234 QRS is 76 QT interval 360 QTC is 447. Patient's EKG shows no ST segment elevation or depression however there is Q waves in leads 3 and aVF. Chest x-ray shows no acute abnormality [facility] patient I wrote admitting orders I consulted cardiology. - Lab Data Result diagrams: 02/05/19 11:25 02/05/19 11:25 Lab Results 02/05/19 02/05/19 02/05/19 Range/Units 11:25 11:25 11:25 WBC 8.1 (3.8-10.6) k/uL RBC 4.15 (3.80-5.40) m/uL Hgb 13.6 (11.4-16.0) gm/dL Hct 39.8 (34.0-46.0) % MCV 96.1 (80.0-100.0) fL MCH 32.9 (25.0-35.0) pg MCHC 34.2 (31.0-37.0) g/dL RDW 12.5 (11.5-15.5) % Plt Count 181 (150-450) k/uL Neutrophils % 74 % Lymphocytes % 17 % Monocytes % 5 % Eosinophils % 1 % Basophils % 1 % Neutrophils # 6.0 (1.3-7.7) k/uL Lymphocytes # 1.4 (1.0-4.8) k/uL Monocytes # 0.4 (0-1.0) k/uL Eosinophils # 0.1 (0-0.7) k/uL Basophils # 0.0 (0-0.2) k/uL PT 10.2 (9.0-12.0) sec INR 0.9 (<1.2) APTT 22.6 (22.0-30.0) sec D-Dimer 0.44 (<0.60) mg/L FEU Sodium 138 (137-145) mmol/L Potassium 4.0 (3.5-5.1) mmol/L Chloride 100 (98-107) mmol/L Carbon Dioxide 29 (22-30) mmol/L Anion Gap 9 mmol/L BUN 22 H (7-17) mg/dL Creatinine 0.46 L (0.52-1.04) mg/dL Est GFR (CKD-EPI)AfAm >90 (>60 ml/min/1.73 sqM) Est GFR (CKD-EPI)NonAf >90 (>60 ml/min/1.73 sqM) Glucose 114 H (74-99) mg/dL Calcium 10.0 (8.4-10.2) mg/dL Magnesium 1.4 L (1.6-2.3) mg/dL Total Bilirubin 0.8 (0.2-1.3) mg/dL AST 29 (14-36) U/L ALT 29 (9-52) U/L Alkaline Phosphatase 75 (38-126) U/L Troponin I (0.000-0.034) ng/mL NT-Pro-B Natriuret Pep pg/mL Total Protein 7.1 (6.3-8.2) g/dL Albumin 4.5 (3.5-5.0) g/dL 02/05/19 02/05/19 Range/Units 11:25 11:25 WBC (3.8-10.6) k/uL RBC (3.80-5.40) m/uL Hgb (11.4-16.0) gm/dL Hct (34.0-46.0) % MCV (80.0-100.0) fL MCH (25.0-35.0) pg MCHC (31.0-37.0) g/dL RDW (11.5-15.5) % Plt Count (150-450) k/uL Neutrophils % % Lymphocytes % % Monocytes % % Eosinophils % % Basophils % % Neutrophils # (1.3-7.7) k/uL Lymphocytes # (1.0-4.8) k/uL Monocytes # (0-1.0) k/uL Eosinophils # (0-0.7) k/uL Basophils # (0-0.2) k/uL PT (9.0-12.0) sec INR (<1.2) APTT (22.0-30.0) sec D-Dimer (<0.60) mg/L FEU Sodium (137-145) mmol/L Potassium (3.5-5.1) mmol/L Chloride (98-107) mmol/L Carbon Dioxide (22-30) mmol/L Anion Gap mmol/L BUN (7-17) mg/dL Creatinine (0.52-1.04) mg/dL Est GFR (CKD-EPI)AfAm (>60 ml/min/1.73 sqM) Est GFR (CKD-EPI)NonAf (>60 ml/min/1.73 sqM) Glucose (74-99) mg/dL Calcium (8.4-10.2) mg/dL Magnesium (1.6-2.3) mg/dL Total Bilirubin (0.2-1.3) mg/dL AST (14-36) U/L ALT (9-52) U/L Alkaline Phosphatase (38-126) U/L Troponin I <0.012 (0.000-0.034) ng/mL NT-Pro-B Natriuret Pep 61 pg/mL Total Protein (6.3-8.2) g/dL Albumin (3.5-5.0) g/dL Disposition Clinical Impression: Chest pain Disposition: ADMITTED IP TO THIS HOSP Referrals: Neeta Jeff DO [Primary Care Provider] - 1-2 days Time of Disposition: 12:24
[2019-02-05 11:46] LABS: Basophils % (A) 1 %; Eosinophils # (A) 0.1 k/uL (0-0.7); Eosinophils % (A) 1 %; HCT 39.8 % (34.0-46.0); HGB 13.6 gm/dL (11.4-16.0); Lymphocytes # (A) 1.4 k/uL (1.0-4.8); Lymphocytes % (A) 17 %; MCH 32.9 pg (25.0-35.0); MCHC 34.2 g/dL (31.0-37.0); MCV 96.1 fL (80.0-100.0); Mean Platelet Volume 7.6; Monocytes # (A) 0.4 k/uL (0-1.0); Monocytes % (A) 5 %; Neutrophils % (A) 74 %; Platelet Count 181 k/uL (150-450); RBC 4.15 m/uL (3.80-5.40); RDW 12.5 % (11.5-15.5); WBC 8.1 k/uL (3.8-10.6)
[2019-02-05 11:56] LABS: ALT 29 U/L (9-52); AST 29 U/L (14-36); Albumin 4.5 g/dL (3.5-5.0); Alkaline Phosphatase 75 U/L (38-126); Anion Gap 9 mmol/L; Blood Urea Nitrogen 22 mg/dL (7-17); Carbon Dioxide 29 mmol/L (22-30); Chloride 100 mmol/L (98-107); Glucose 114 mg/dL (74-99); Magnesium 1.4 mg/dL (1.6-2.3); Sodium 138 mmol/L (137-145); Total Bilirubin 0.8 mg/dL (0.2-1.3); Total Protein 7.1 g/dL (6.3-8.2)
[2019-02-05 12:05] LABS: D-Dimer 0.44 mg/L FEU (<0.60); INR 0.9 (<1.2); Partial Thromboplastin Time 22.6 sec (22.0-30.0); Prothrombin Time 10.2 sec (9.0-12.0)
--- NOTE | 2019-02-05 12:14 | XR ---
EXAMINATION TYPE: XR chest 2V DATE OF EXAM: 02/05/2019 HISTORY: Chest Pain. REFERENCE: Previous study dated 06/23/2014. FINDINGS: Elevation right hemidiaphragm has improved. Lungs are now clear. Pleural space are clear. T he heart is upper limits of normal in size. IMPRESSION: NO ACTIVE INTRATHORACIC DISEASE.
[2019-02-05] MEDS ORDERED: NITROGLYCERIN SL TABS 0.4 MG TAB SUBLINGUAL PRN (12:24)
[2019-02-05 16:33] LABS: Glucose,Whole Blood 118 mg/dL (75-99)
[2019-02-05] MEDS ORDERED: GABAPENTIN 300 MG CAP PO PRN (17:16)
[2019-02-05] MEDS ORDERED: MORPHINE SULFATE 2 MG/ML SYRINGE IVP PRN (17:19)
[2019-02-05] MEDS: MAGNESIUM SULFATE-D5W PMX 1 GM in DEXTROSE/WATER 1 100ML.BAG IVPB SCH ×2 (18:14→19:44)
[2019-02-05] MEDS: PANTOPRAZOLE 40 MG/10 ML VIAL IVP SCH (18:24)
--- NOTE | 2019-02-05 18:34 | P.HPIM ---
History of Present Illness This is a pleasant 68 years old female with past medical history of COPD/asthma, history of diaphragm paralysis status post thoracotomy x2 diabetes mellitus, GERD, hyperlipidemia, hypertension, osteoarthritis, rheumatoid arthritis, sleep apnea on CPAP, hypothyroidism, she uses oxygen at 2.5 L at night area she quit smoking about 27 years ago. She presents with left-sided chest pain, chest pain started about 2-3 days ago, comes and goes. About 7-8/10 in severity, and down to 6/10. dull and times and sharp at times. Her left breast radiating to the back, get worse with activity, also got worse with coughing and deep inspir ation. She has mild cough with little phlegm, white in color for the last couple days. Her chest pain is associated with numbness of her left jaw and left arm. On admission her d-dimer was negative. Labs were unremarkable except for low magnesium at 1.4 which is replaced. No leukocytosis or fever chest x-ray were unremarkable and EKGshowing normal sinus rhythm at 93 BPM with T-wave inversion in lead III. Procedure troponin is negative She is to see a fudge candy maker and the last time she saw him around 2017. Her PCP and is managing her lung problems. Review of Systems CONSTITUTIONAL: No fever, no malaise, no fatigue. HEENT: No recent visual problems or hearing problems. Denied any sore throat. CARDIOVASCULAR: No orthopnea, PND, no palpitations, no syncope. PULMONARY: No shortness of breath, no cough, no hemoptysis. GASTROINTESTINAL: No diarrhea, no nausea, no vomiting, no abdominal pain. Normoactive bowel sounds. NEUROLOGICAL: No headaches, no weakness, no numbness. HEMATOLOGICAL: Denies any bleeding or petechiae. GENITOURINARY: Denies any burning micturition, frequency, or urgency. MUSCULOSKELETAL/RHEUMATOLOGICAL: Denies any joint pain, swelling, or any muscle pain. ENDOCRINE: Denies any polyuria or polydipsia. Past Medical History Past Medical History: Asthma, COPD, Diabetes Mellitus, GERD/Reflux, Hyperlipidemia, Hypertension, Osteoarthritis (OA), Rheumatoid Arthritis (RA), Sleep Apnea/CPAP/BIPAP, Thyroid Disorder Additional Past Medical History / Comment(s): USES O2 @2.5 L AT NIGHT FOR SLEEP APNEA History of Any Multi-Drug Resistant Organisms: None Reported Past Surgical History: Back Surgery, Bladder Surgery, Hernia Repair, Hysterectomy, Orthopedic Surgery, Tonsillectomy Additional Past Surgical History / Comment(s): THORACOTOMY X2 FOR A PARALYZED DIAPHRAGM, rt bunionectomy, Past Anesthesia/Blood Transfusion Reactions: No Reported Reaction Additional Past Anesthesia/Blood Transfusion Reaction / Comment(s): "I can not lay on my back flat-can't breath" Past Psychological History: Anxiety, Depression Smoking Status: Former smoker Past Alcohol Use History: Occasional Additional Past Alcohol Use History / Comment(s): STARTED SMOKING AT AGE 20 QUIT IN 1991 SMOKED 1PPD Past Drug Use History: None Reported - Past Family History Mother Family Medical History: Deep Vein Thrombosis (DVT) Additional Family Medical History / Comment(s): emphysema Father Family Medical History: Coronary Artery Disease (CAD), Diabetes Mellitus Additional Family Medical History / Comment(s): TRIPLE BYPASS, OTHER WOOD PROCESSING MACHINE OPERATOR REPLACMENT,PACEMAKER Medications and Allergies Home Medications Medication Instructions Recorded Confirmed Type Celecoxib [CeleBREX] 200 mg PO W/SUPPER 06/23/14 02/05/19 History Levothyroxine Sodium [Synthroid] 50 mcg PO DAILY 06/23/14 02/05/19 History Losartan/Hydrochlorothiazide 0.5 tab PO HS 06/23/14 02/05/19 History [Losartan-Hctz 50-12.5 mg Tab] Budesonide/Formoterol Fumarate 2 puff INHALATION RT-BID 10/14/16 02/05/19 History [Symbicort 160-4.5 Mcg Inhaler] Calcium Carbonate [Calcium] 1,200 mg PO DAILY 10/30/17 02/05/19 History Gabapentin [Neurontin] 300 mg PO DAILY PRN 10/30/17 02/05/19 History Omeprazole [PriLOSEC] 20 mg PO AC-BRKFST 10/30/17 02/05/19 History RX: Pravastatin Sodium 80 mg PO HS 10/30/17 02/05/19 History metFORMIN HCL [Glucophage] 500 mg PO DAILY 01/27/18 02/05/19 History Loratadine [Claritin] 10 mg PO DAILY 02/05/19 02/05/19 History Mirabegron [Myrbetriq] 25 mg PO DAILY 02/05/19 02/05/19 History Allergies Allergy/AdvReac Type Severity Reaction Status Date / Time cephalexin monohydrate Allergy Rash/Hives Verified 02/05/19 11:40 [From Keflex] lisinopril Allergy Cough Verified 02/05/19 11:40 Physical Exam Vitals: Vital Signs Temp Pulse Pulse Resp BP BP Pulse Ox 02/05/19 16:09 95 02/05/19 15:40 97.4 F L 92 17 125/85 95 02/05/19 15:11 98.4 F 99 18 118/80 97 02/05/19 13:12 97 18 158/93 94 L 02/05/19 12:40 98 16 151/95 94 L 02/05/19 11:45 20 02/05/19 10:59 98.1 F 94 18 166/85 96 Intake and Output 02/05/19 02/05/19 02/05/19 06:59 14:59 22:59 Intake Total 240 Balance 240 Intake: Oral 240 Other: Voiding Method Toilet # Voids 1 Weight 65.317 kg GENERAL: The patient is alert and oriented x3, not in any acute distress. Well developed, well nourished. HEENT: Pupils are round and equally reacting to light. EOMI. No scleral icterus. No conjunctival pallor. Normocephalic, atraumatic. No pharyngeal erythema. No thyromegaly. -CARDIOVASCULAR: S1 and S2 present. No murmurs, rubs, or gallops. If chest pain and tenderness PULMONARY: Chest is clear to auscultation, no wheezing or crackles. ABDOMEN: Soft, nontender, nondistended, normoactive bowel sounds. No palpable organomegaly. MUSCULOSKELETAL: No joint swelling or deformity. EXTREMITIES: No cyanosis, clubbing, or pedal edema. NEUROLOGICAL: Gross neurological examination did not reveal any focal deficits. SKIN: No rashes. Results CBC & Chem 7: 02/05/19 11:25 02/05/19 11:25 Labs: Abnormal Lab Results - Last 24 Hours (Table) 02/05/19 02/05/19 Range/Units 11:25 16:32 BUN 22 H (7-17) mg/dL Creatinine 0.46 L (0.52-1.04) mg/dL Glucose 114 H (74-99) mg/dL POC Glucose (mg/dL) 118 H (75-99) mg/dL Magnesium 1.4 L (1.6-2.3) mg/dL Thrombosis Risk Factor Assmnt - Choose All That Apply Any of the Below Risk Factors Present?: No Other Risk Factors: Yes Each Risk Factor Represents 2 Points: Age 61-74 years Thrombosis Risk Factor Assessment Total Risk Factor Score: 2 Thrombosis Risk Factor Assessment Level: Low Risk Assessment and Plan Assessment: Chest pain, rule out acute coronary syndrome or other cardiac causes. History of COPD/asthma, no Acute exacerbation. On home oxygen 2.5 L at night History of diaphragmatic paralysis status post thoracotomy x2 Diabetes mellitus hypertension hyperlipidemia rheumatoid arthritis sleep apnea on CPAP hypothyroidism history of GERD Plan: This is a pleasant 68 years old female who presents with left-sided chest pain, with dyspnea. We'll check an influenza. D-dimer is negative. We will troponins. Cardiology consult. Pulmonary consult. Labs and medication were reviewed.. Continue same treatment. Continue with symptomatic treatment. Resume home medication. Monitor lytes and vitals. DVT and GI prophylaxis. Further recommendations of the clinical course of the patient DVT prophylaxis: Subcutaneous heparin GI Prophylaxis: Protonix Prognosis is guarded
[2019-02-05] MEDS: LOSARTAN-HCTZ 50-12.5 MG 1 EACH TAB PO SCH ×2 (19:47→19:55)
[2019-02-05] MEDS: PRAVASTATIN SODIUM 80 MG TAB PO SCH (19:48)
[2019-02-05] MEDS: SYMBICORT 160-4.5 MCG INHALER INHALATION SCH (19:48)
[2019-02-05] MEDS: HEPARIN SODIUM,PORCINE 5,000 UNIT/ML 1 ML VIAL SQ SCH (19:48)
[2019-02-05 20:01] LABS: Glucose,Whole Blood 158 mg/dL (75-99)
[2019-02-05] MEDS: NITROGLYCERIN OINT 1 INCH/GM PACKET TOPICAL SCH ×2 (22:12→23:50)
[2019-02-05] MEDS ORDERED: ZOLPIDEM 10 MG TAB PO PRN (22:15)
[2019-02-06] MEDS: NITROGLYCERIN OINT 1 INCH/GM PACKET TOPICAL SCH ×4 (05:19→23:30)
[2019-02-06] MEDS: LEVOTHYROXINE 50 MCG TAB PO SCH (05:36)
[2019-02-06 06:56] LABS: Glucose,Whole Blood 141 mg/dL (75-99)
--- NOTE | 2019-02-06 07:58 | P.CRDCN ---
History of Present Illness Consult date: 02/06/19 Chief complaint: Chest pain History of present illness: This is a pleasant 68-year-old female patient with a past medical history significant for diabetes, hypertension, and dyslipidemia, presented to the emergency room complaining of chest discomfort. She describes chest discomfort, in the lower left chest, as a sharp kind of discomfort, without any associated symptoms of shortness of breath, dizziness, sweating, or loss of consciousness o r syncope. On physical examination, the chest discomfort seems to be very reproducible. No history of coronary artery disease. She does have multiple risk factors for coronary artery disease as described above. The EKG showed sinus rhythm without any significant ST or T-wave abnormalities. 3 sets of cardiac enzymes were checked and came in to be unremarkable. The chest discomfort does not seems to be exertional. The patient stated that she underwent a cardiac workup including stress test in 2017 before she underwent hernia surgery and that came in to be unremarkable. I did discuss with the patient the results of her testing including the EKG as well as cardiac enzymes. I did advise the patient the need to undergo a stress test either as an inpatient or as an outpatient. Since today is a weekend, I did tell the patient to get up and around, if she is asymptomatic, she might be able to be discharged home and have the stress test to be done as an outpatient. If she developed any more episodes of chest discomfort I would consider proceeding with a stress test tomorrow morning. Past Medical History Past Medical History: Asthma, COPD, Diabetes Mellitus, GERD/Reflux, Hyperlipidemia, Hypertension, Osteoarthritis (OA), Rheumatoid Arthritis (RA), Sleep Apnea/CPAP/BIPAP, Thyroid Disorder Additional Past Medical History / Comment(s): USES O2 @2.5 L AT NIGHT FOR SLEEP APNEA History of Any Multi-Drug Resistant Organisms: None Reported Past Surgical History: Back Surgery, Bladder Surgery, Hernia Repair, Hysterectomy, Orthopedic Surgery, Tonsillectomy Additional Past Surgical History / Comment(s): THORACOTOMY X2 FOR A PARALYZED DIAPHRAGM, rt bunionectomy, Past Anesthesia/Blood Transfusion Reactions: No Reported Reaction Additional Past Anesthesia/Blood Transfusion Reaction / Comment(s): "I can not lay on my back flat-can't breath" Past Psychological History: Anxiety, Depression Smoking Status: Former smoker Past Alcohol Use History: Occasional Additional Past Alcohol Use History / Comment(s): STARTED SMOKING AT AGE 20 QUIT IN 1991 SMOKED 1PPD Past Drug Use History: None Reported - Past Family History Mother Family Medical History: Deep Vein Thrombosis (DVT) Additional Family Medical History / Comment(s): emphysema Father Family Medical History: Coronary Artery Disease (CAD), Diabetes Mellitus Additional Family Medical History / Comment(s): TRIPLE BYPASS, ASSOCIATION EXECUTIVE REPLACMENT,PACEMAKER Medications and Allergies Home Medications Medication Instructions Recorded Confirmed Type Celecoxib [CeleBREX] 200 mg PO W/SUPPER 06/23/14 02/05/19 History Levothyroxine Sodium [Synthroid] 50 mcg PO DAILY 06/23/14 02/05/19 History Losartan/Hydrochlorothiazide 0.5 tab PO HS 06/23/14 02/05/19 History [Losartan-Hctz 50-12.5 mg Tab] Budesonide/Formoterol Fumarate 2 puff INHALATION RT-BID 10/14/16 02/05/19 History [Symbicort 160-4.5 Mcg Inhaler] Calcium Carbonate [Calcium] 1,200 mg PO DAILY 10/30/17 02/05/19 History Gabapentin [Neurontin] 300 mg PO DAILY PRN 10/30/17 02/05/19 History Omeprazole [PriLOSEC] 20 mg PO AC-BRKFST 10/30/17 02/05/19 History Pravastatin Sodium 80 mg PO HS 10/30/17 02/05/19 History metFORMIN HCL [Glucophage] 500 mg PO DAILY 01/27/18 02/05/19 History Loratadine [Claritin] 10 mg PO DAILY 02/05/19 02/05/19 History Mirabegron [Myrbetriq] 25 mg PO DAILY 02/05/19 02/05/19 History Allergies Allergy/AdvReac Type Severity Reaction Status Date / Time cephalexin monohydrate Allergy Rash/Hives Verified 02/05/19 11:40 [From Keflex] lisinopril Allergy Cough Verified 02/05/19 11:40 Physical Exam Vitals: Vital Signs Temp Pulse Pulse Resp BP BP BP 02/06/19 07:28 98 F 83 17 126/71 02/06/19 03:50 98.2 F 86 16 112/73 02/06/19 03:14 16 02/05/19 23:34 16 02/05/19 23:25 97.9 F 94 16 93/56 02/05/19 19:58 16 02/05/19 19:48 02/05/19 18:38 97.7 F 96 16 120/71 127/69 02/05/19 16:09 02/05/19 15:40 97.4 F L 92 17 125/85 02/05/19 15:11 98.4 F 99 18 118/80 02/05/19 13:12 97 18 158/93 02/05/19 12:40 98 16 151/95 02/05/19 11:45 20 02/05/19 10:59 98.1 F 94 18 166/85 Pulse Ox 02/06/19 07:28 97 02/06/19 03:50 95 02/06/19 03:14 02/05/19 23:34 02/05/19 23:25 97 02/05/19 19:58 02/05/19 19:48 97 02/05/19 18:38 92 L 02/05/19 16:09 95 02/05/19 15:40 95 02/05/19 15:11 97 02/05/19 13:12 94 L 02/05/19 12:40 94 L 02/05/19 11:45 02/05/19 10:59 96 Intake and Output 02/05/19 02/06/19 02/06/19 22:59 06:59 14:59 Intake Total 240 Balance 240 Intake: Oral 240 Other: Voiding Method Toilet Toilet # Voids 1 2 - Constitutional General appearance: no acute distress - Respiratory Respiratory: bilateral: CTA - Cardiovascular Rhythm: regular Heart sounds: normal: S1, S2 Results 02/05/19 11:25 02/05/19 11:25 Cardiac Enzymes 02/05/19 02/05/19 02/05/19 Range/Units 11:25 11:25 17:30 AST 29 (14-36) U/L Troponin I <0.012 <0.012 (0.000-0.034) ng/mL 02/05/19 Range/Units 23:12 AST (14-36) U/L Troponin I <0.012 (0.000-0.034) ng/mL Coagulation 02/05/19 Range/Units 11:25 PT 10.2 (9.0-12.0) sec APTT 22.6 (22.0-30.0) sec CBC 02/05/19 Range/Units 11:25 WBC 8.1 (3.8-10.6) k/uL RBC 4.15 (3.80-5.40) m/uL Hgb 13.6 (11.4-16.0) gm/dL Hct 39.8 (34.0-46.0) % Plt Count 181 (150-450) k/uL Comprehensive Metabolic Panel 02/05/19 Range/Units 11:25 Sodium 138 (137-145) mmol/L Potassium 4.0 (3.5-5.1) mmol/L Chloride 100 (98-107) mmol/L Carbon Dioxide 29 (22-30) mmol/L BUN 22 H (7-17) mg/dL Creatinine 0.46 L (0.52-1.04) mg/dL Glucose 114 H (74-99) mg/dL Calcium 10.0 (8.4-10.2) mg/dL AST 29 (14-36) U/L ALT 29 (9-52) U/L Alkaline Phosphatase 75 (38-126) U/L Total Protein 7.1 (6.3-8.2) g/dL Albumin 4.5 (3.5-5.0) g/dL Current Medications Generic Name Dose Route Start Last Admin Trade Name Freq PRN Reason Stop Dose Admin Aspirin 325 mg 02/06/19 09:00 Aspirin PO DAILY [facility] Budesonide/Formoterol Fumarate 2 puff 02/05/19 20:00 02/05/19 19:48 Symbicort 160-4.5 Mcg Inhaler INHALATION 2 puff RT-BID JHOAN Administration Calcium Carbonate/Glycine 1,000 mg 02/06/19 09:00 Tums PO DAILY JHOAN Gabapentin 300 mg 02/05/19 17:16 02/05/19 20:17 Neurontin PO 300 mg DAILY PRN Administration NERVE Pain HCTZ/Losartan Potassium 0.5 each 02/05/19 21:00 02/05/19 19:55 Hyzaar 50-12.5 PO Not Given HS JHOAN Heparin Sodium (Porcine) 5,000 unit 02/05/19 21:00 02/05/19 19:48 Heparin SQ 5,000 unit Q12HR JHOAN Administration Levothyroxine Sodium 50 mcg 02/06/19 06:30 02/06/19 05:36 Synthroid PO 50 mcg DAILY@0630 JHOAN Administration Metformin HCl 500 mg 02/06/19 09:00 Glucophage PO DAILY JHOAN Morphine Sulfate 2 mg 02/05/19 17:19 02/05/19 19:39 Morphine Sulfate (Inj) IVP 2 mg Q4H PRN Administration Pain/Discomfort Nitroglycerin 1 inch 02/05/19 18:00 02/06/19 05:19 Nitro-Bid Oint TOPICAL Not Given Q6HR [facility] Nitroglycerin 0.4 mg 02/05/19 12:24 Nitrostat SUBLINGUAL Q5M PRN Chest Pain Pantoprazole Sodium 40 mg 02/05/19 17:30 02/05/19 18:24 Protonix IVP 40 mg DAILY JHOAN Administration Pravastatin Sodium 80 mg 02/05/19 21:00 02/05/19 19:48 Pravachol PO 80 mg HS JHOAN Administration Zolpidem Tartrate 10 mg 02/05/19 22:15 02/05/19 22:44 Ambien PO 10 mg HS PRN Administration Insomnia Intake and Output 02/05/19 02/06/19 02/06/19 22:59 06:59 14:59 Intake Total 240 Balance 240 Intake: Oral 240 Other: Voiding Method Toilet Toilet # Voids 1 2 02/05/19 11:25 02/05/19 11:25 Assessment and Plan Assessment: Assessment #1 atypical chest discomfort #2 multiple comorbid conditions including diabetes, hypertension, dyslipidemia Plan #1 the patient was ruled out for acute coronary event #2 get the patient up and around, if she is asymptomatic she might be able to go home. If she develop any chest discomfort, we'll consider proceeding with a stress test tomorrow Thank you for allowing us participate in her care and we will continue following up with the patient
[2019-02-06] MEDS: SYMBICORT 160-4.5 MCG INHALER INHALATION SCH ×2 (08:12→18:37)
[2019-02-06 08:34] LABS: Magnesium 1.6 mg/dL (1.6-2.3)
[2019-02-06] MEDS: metFORMIN 500 MG TAB PO SCH (08:44)
[2019-02-06] MEDS: HEPARIN SODIUM,PORCINE 5,000 UNIT/ML 1 ML VIAL SQ SCH ×2 (08:44→20:00)
[2019-02-06] MEDS: PANTOPRAZOLE 40 MG/10 ML VIAL IVP SCH (08:44)
[2019-02-06] MEDS: CALCIUM CARBONATE 500 MG CHEWABLE PO SCH (08:44)
[2019-02-06] MEDS ORDERED: ASPIRIN 325 MG TAB PO SCH (09:00)
--- NOTE | 2019-02-06 10:40 | CT ---
EXAMINATION TYPE: CT chest angio for PE DATE OF EXAM: 02/06/2019 COMPARISON: None. HISTORY: SOB, chest pain CT DLP: 234.4 mGycm Automated exposure control for dose reduction was used. CONTRAST: CT Chest for pulmonary embolism performed with with IV Contrast, patient injected with 74 mL of Isovu e 370. FINDINGS: There is atelectasis or scarring in the right upper lobe. There are atelectatic changes pre sent at the left lung base. There is no significant axillary, internal mammary, mediastinal or hilar adenopathy. There is no evidence of a pulmonary embolus. The aorta is normal in size without evidence of dissection. The heart is mildly enlarged. There is no pleural or pericardial fluid. There are varicosities projecting along the posterior aspect of the right hemidiaphragm. Visualized p ortions of the upper abdomen are otherwise unremarkable. There is hypertrophic spondylosis within the spine. IMPRESSION: 1. This examination is negative for pulmonary embolus. 2. Varicosities around the posterior aspect of the right hemidiaphragm of uncertain significance.
[2019-02-06 11:28] LABS: Glucose,Whole Blood 151 mg/dL (75-99)
--- NOTE | 2019-02-06 12:30 | P.CNPUL ---
History of Present Illness Consult date: 02/06/19 Reason for consult: chest pain History of present illness: 68-year-old female patient hospitalized for left-sided chest pain, somewhat pleuritic in nature mainly on the left side moving to her jaw and back. No cough. No sputum production. No hypoxemia. The pain is been on and off throughout the day and still present. I noted the pain is very much reproducible. EKG is not showing any acute abnormalities. 3 sets of cardiac enzymes are negative. Chest x-ray within normal. The patient has a very previous diaphragmatic plication on the right and the patient has obstructive sleep apnea and she is using many home oxygen at 2 L per minute overnight. She is an ex-smoker. She has history of COPD he is currently inactive and stable. No recurrent pneumonias. No DVT. No pulmonary embolism. D-dimer level was nonelevated. Review of Systems Constitutional: Denies chills, Denies fever Eyes: denies as per HPI, denies blurred vision, denies bulging eye, denies decreased vision, denies diplopia, denies discharge, denies dry eye, denies irritation, denies itching, denies pain, denies photophobia, denies loss of peripheral vision, denies loss of vision, denies tunnel vision/blind spots Ears: deny: decreased hearing, ear discharge, earache, tinnitus Ears, nose, mouth and throat: Denies headache, Denies sore throat Breasts: absent: as per HPI, change in shape, gynecomastia, masses, nipple di scharge, pain, skin changes, swelling Cardiovascular: Reports chest pain Respiratory: Reports as per HPI, Reports sleep apnea Gastrointestinal: Denies abdominal pain, Denies diarrhea, Denies nausea, Denies vomiting Genitourinary: Reports genital sores, Denies dysuria, Denies hematuria Musculoskeletal: Reports as per HPI Musculoskeletal: absent: ankle pain, ankle stiffness, ankle swelling, as per HPI, elbow pain, elbow stiffness, elbow swelling, foot pain, foot stiffness, foot swelling, hand pain, hand stiffness, hand swelling, hip pain, hip sti ffness, hip swelling, knee pain, knee stiffness, knee swelling, shoulder pain, shoulder stiffness, shoulder swelling, wrist pain, wrist stiffness, wrist swelling Integumentary: Reports as per HPI Neurological: Reports as per HPI Psychiatric: Reports as per HPI Endocrine: Reports as per HPI Hematologic/Lymphatic: Reports as per HPI Allergic/Immunologic: Reports as per HPI Past Medical History Past Medical History: COPD, Diabetes Mellitus, GERD/Reflux, Hyperlipidemia, Hypertension, Osteoarthritis (OA), Rheumatoid Arthritis (RA), Sleep Apnea/CPAP/BIPAP, Thyroid Disorder Additional Past Medical History / Comment(s): USES O2 @2.5 L AT NIGHT FOR SLEEP APNEA History of Any Multi-Drug Resistant Organisms: None Reported Past Surgical History: Back Surgery, Bladder Surgery, Hernia Repair, Hysterectomy, Orthopedic Surgery, Tonsillectomy Additional Past Surgical History / Comment(s): THORACOTOMY X2 FOR A PARALYZED DIAPHRAGM, rt bunionectomy, Past Anesthesia/Blood Transfusion Reactions: No Reported Reaction Additional Past Anesthesia/Blood Transfusion Reaction / Comment(s): "I can not lay on my back flat-can't breath" Past Psychological History: Anxiety, Depression Smoking Status: Former smoker Past Alcohol Use History: Occasional Additional Past Alcohol Use History / Comment(s): STARTED SMOKING AT AGE 20 QUIT IN 1991 SMOKED 1PPD Past Drug Use History: None Reported - Past Family History Mother Family Medical History: Deep Vein Thrombosis (DVT) Additional Family Medical History / Comment(s): emphysema Father Family Medical History: Coronary Artery Disease (CAD), Diabetes Mellitus Additional Family Medical History / Comment(s): TRIPLE BYPASS, CD MIXER REPLACMENT,PACEMAKER Medications and Allergies Home Medications Medication Instructions Recorded Confirmed Type Celecoxib [CeleBREX] 200 mg PO W/SUPPER 06/23/14 02/05/19 History Levothyroxine Sodium [Synthroid] 50 mcg PO DAILY 06/23/14 02/05/19 History Losartan/Hydrochlorothiazide 0.5 tab PO HS 06/23/14 02/05/19 History [Losartan-Hctz 50-12.5 mg Tab] Budesonide/Formoterol Fumarate 2 puff INHALATION RT-BID 10/14/16 02/05/19 History [Symbicort 160-4.5 Mcg Inhaler] Calcium Carbonate [Calcium] 1,200 mg PO DAILY 10/30/17 02/05/19 History Gabapentin [Neurontin] 300 mg PO DAILY PRN 10/30/17 02/05/19 History Omeprazole [PriLOSEC] 20 mg PO AC-BRKFST 10/30/17 02/05/19 History Pravastatin Sodium 80 mg PO HS 10/30/17 02/05/19 History metFORMIN HCL [Glucophage] 500 mg PO DAILY 01/27/18 02/05/19 History Loratadine [Claritin] 10 mg PO DAILY 02/05/19 02/05/19 History Mirabegron [Myrbetriq] 25 mg PO DAILY 02/05/19 02/05/19 History Allergies Allergy/AdvReac Type Severity Reaction Status Date / Time cephalexin monohydrate Allergy Rash/Hives Verified 02/05/19 11:40 [From Keflex] lisinopril Allergy Cough Verified 02/05/19 11:40 Physical Exam Vitals: Vital Signs Temp Pulse Pulse Resp BP BP BP 02/06/19 11:17 97.7 F 75 16 137/81 02/06/19 07:28 98 F 83 17 126/71 02/06/19 03:50 98.2 F 86 16 112/73 02/06/19 03:14 16 02/05/19 23:34 16 02/05/19 23:25 97.9 F 94 16 93/56 02/05/19 19:58 16 02/05/19 19:48 02/05/19 18:38 97.7 F 96 16 120/71 127/69 02/05/19 16:09 02/05/19 15:40 97.4 F L 92 17 125/85 02/05/19 15:11 98.4 F 99 18 118/80 02/05/19 13:12 97 18 158/93 02/05/19 12:40 98 16 151/95 Pulse Ox 02/06/19 11:17 94 L 02/06/19 07:28 97 02/06/19 03:50 95 02/06/19 03:14 02/05/19 23:34 02/05/19 23:25 97 02/05/19 19:58 02/05/19 19:48 97 02/05/19 18:38 92 L 02/05/19 16:09 95 02/05/19 15:40 95 02/05/19 15:11 97 02/05/19 13:12 94 L 02/05/19 12:40 94 L Intake and Output 02/05/19 02/06/19 02/06/19 22:59 06:59 14:59 Intake Total 240 Balance 240 Intake: Oral 240 Other: Voiding Method Toilet Toilet Toilet # Voids 1 2 1 The patient appeared well nourished and normally developed. Vital signs as docum ented. Head exam is unremarkable. No scleral icterus or corneal arcus noted. Neck is without jugular venous distension, thyromegaly, or carotid bruits. Carotid upstrokes are brisk bilaterally. Lungs are clear to auscultation and percussion. Cardiac exam reveals the PMI to be normally sized and situated. Rhythm is regular. First and second heart sounds normal. No murmurs, rubs or gallops. Abdominal exam reveals normal bowel sounds, no masses, no organomegaly and no aortic enlargement. Extremities are nonedematous and both femoral and pedal pulses are normal.Examination of the skin revealed no evidence of significant rashes, suspicious appearing nevi or other concerning lesions. Neurologically the patient is awake and alert and there is no focal neurological deficit. Results - Laboratory Findings CBC and BMP: 02/05/19 11:25 02/05/19 11:25 PT/INR, D-dimer PT 10.2 sec (9.0-12.0) 02/05/19 11:25 INR 0.9 (<1.2) 02/05/19 11:25 D-Dimer 0.44 mg/L FEU (<0.60) 02/05/19 11:25 Abnormal lab findings: Abnormal Labs 02/05/19 02/05/19 02/05/19 11:25 16:32 19:54 BUN 22 H Creatinine 0.46 L Glucose 114 H POC Glucose (mg/dL) 118 H 158 H Magnesium 1.4 L HDL Cholesterol 02/06/19 02/06/19 02/06/19 06:54 07:39 11:27 BUN Creatinine Glucose POC Glucose (mg/dL) 141 H 151 H Magnesium HDL Cholesterol 70 H - Diagnostic Findings Chest x-ray: image reviewed Assessment and Plan Plan: 1 atypical chest pain, reproducible, doubt any pleurisy. D-dimer is low. No evidence of any pneumonia. COPD stable for now. 2 COPD 2 obstructive sleep apnea. 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 We'll utilize a CT angios protocol. If negative, the patient will be cleared from the pulmonary standpoint.
--- NOTE | 2019-02-06 15:06 | P.PN ---
Subjective This is a pleasant 68 years old female with past medical history of COPD/asthma, history of diaphragm paralysis status post thoracotomy x2 diabetes mellitus, GERD, hyperlipidemia, hypertension, osteoarthritis, rheumatoid arthritis, sleep apnea on CPAP, hypothyroidism, she uses oxygen at 2.5 L at night area she quit smoking about 27 years ago. She presents with left-sided chest pain, chest pain started about 2-3 days ago, comes and goes. About 7-8/10 in severity, and down to 6/10. dull and times and sharp at times. Her left breast radiating to the back, get worse with activity, also got worse with coughing and deep inspiration. She has mild cough with little phlegm, white in color for the last couple days. Her chest pain is associated with numbness of her left jaw and left arm. On admission her d-dimer was negative. Labs were unremarkable except for low magnesium at 1.4 which is replaced. No leukocytosis or fever chest x-ray were unremarkable and EKGshowing normal sinus rhythm at 93 BPM with T-wave inversion in lead III. Procedure troponin is negative She is to see a estimator and the last time she saw him around 2016. Her PCP and is managing her lung problems. 02/06/2019 Patient today feels a little better but she still have the pain on and off. Her dyspnea is better. She still have mild cough but no significant abnormality. Patient was walking in the hallway with no problems. Vitals are stable her sugar is controlled. His liver profile is reviewed. Troponins are negative. CAT scan of the chest: Negative for pulmonary embolism, varicosities around the posterior aspect of the right hemidiaphragm of uncertain significance as per radiologist. 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 Objective - Vital Signs Vital signs: Vital Signs Temp 97.7 F 02/06/19 11:17 Pulse 75 02/06/19 11:17 Resp 16 02/06/19 11:17 BP 137/81 02/06/19 11:17 Pulse Ox 94 L 02/06/19 11:17 Intake & Output 02/05/19 02/06/19 02/06/19 18:59 06:59 18:59 Intake Total 240 240 Balance 240 240 Weight 65.317 kg Intake: Oral 240 240 Other: Voiding Method Toilet Toilet Toilet # Voids 1 2 1 - Exam GENERAL: The patient is alert and oriented x3, not in any acute distress. Well developed, well nourished. HEENT: Pupils are round and equally reacting to light. EOMI. No scleral icterus. No conjunctival pallor. Normocephalic, atraumatic. No pharyngeal erythema. No thyromegaly. -CARDIOVASCULAR: S1 and S2 present. No murmurs, rubs, or gallops. If chest pain and tenderness PULMONARY: Chest is clear to auscultation, no wheezing or crackles. ABDOMEN: Soft, nontender, nondistended, normoactive bowel sounds. No palpable organomegaly. MUSCULOSKELETAL: No joint swelling or deformity. EXTREMITIES: No cyanosis, clubbing, or pedal edema. NEUROLOGICAL: Gross neurological examination did not reveal any focal deficits. SKIN: No rashes. - Labs CBC & Chem 7: 02/05/19 11:25 02/05/19 11:25 Labs: Abnormal Lab Results - Last 24 Hours (Table) 02/05/19 02/05/19 02/06/19 Range/Units 16:32 19:54 06:54 POC Glucose (mg/dL) 118 H 158 H 141 H (75-99) mg/dL HDL Cholesterol (40-60) mg/dL 02/06/19 02/06/19 Range/Units 07:39 11:27 POC Glucose (mg/dL) 151 H (75-99) mg/dL HDL Cholesterol 70 H (40-60) mg/dL Assessment and Plan Assessment: Chest pain, rule out acute coronary syndrome or other cardiac causes. History of COPD/asthma, no Acute exacerbation. On home oxygen 2.5 L at night History of diaphragmatic paralysis status post thoracotomy x2 Diabetes mellitus hypertension hyperlipidemia rheumatoid arthritis sleep apnea on CPAP hypothyroidism history of GERD Plan: This is a pleasant 68 years old female who presents with left-sided chest pain, with dyspnea. We'll check an influenza. D-dimer is negative. We will troponi ns. Cardiology consult. Pulmonary consult. Labs and medication were reviewed.. Continue same treatment. Continue with symptomatic treatment. Resume home medication. Monitor lytes and vitals. DVT and GI prophylaxis. Further recommendations of the clinical course of the patient DVT prophylaxis: Subcutaneous heparin GI Prophylaxis: Protonix Prognosis is guarded
[2019-02-06 16:47] LABS: Glucose,Whole Blood 124 mg/dL (75-99)
[2019-02-06] MEDS: traMADol 50 MG TAB PO PRN (20:00)
[2019-02-06] MEDS: LOSARTAN-HCTZ 50-12.5 MG 1 EACH TAB PO SCH (20:01)
[2019-02-06] MEDS: PRAVASTATIN SODIUM 80 MG TAB PO SCH (20:01)
[2019-02-06 20:04] LABS: Glucose,Whole Blood 171 mg/dL (75-99)
[2019-02-06] MEDS: MELOXICAM 7.5 MG TAB PO SCH (20:28)
[2019-02-07] MEDS: NITROGLYCERIN OINT 1 INCH/GM PACKET TOPICAL SCH (03:45)
[2019-02-07] MEDS: LEVOTHYROXINE 50 MCG TAB PO SCH (06:04)
[2019-02-07 06:43] LABS: Glucose,Whole Blood 154 mg/dL (75-99)
[2019-02-07 07:19] VITALS: RESP 18
[2019-02-07] MEDS ORDERED: PANTOPRAZOLE 40 MG TABLET PO SCH (07:30)
[2019-02-07] MEDS: SYMBICORT 160-4.5 MCG INHALER INHALATION SCH (07:44)
[2019-02-07] MEDS ORDERED: DOBUTamine DRIP for NUC MED 500 MG in DEXTROSE/WATER 1 250ML.BAG IV ONE (07:50)
[2019-02-07 08:10] LABS: Anion Gap 6 mmol/L; Blood Urea Nitrogen 17 mg/dL (7-17); Calcium 9.6 mg/dL (8.4-10.2); Carbon Dioxide 33 mmol/L (22-30); Chloride 97 mmol/L (98-107); Glucose 145 mg/dL (74-99); Potassium 4.1 mmol/L (3.5-5.1); Sodium 136 mmol/L (137-145)
[2019-02-07] MEDS: metFORMIN 500 MG TAB PO SCH (08:59)
[2019-02-07] MEDS: CALCIUM CARBONATE 500 MG CHEWABLE PO SCH (09:00)
[2019-02-07] MEDS: HEPARIN SODIUM,PORCINE 5,000 UNIT/ML 1 ML VIAL SQ SCH (09:00)
--- NOTE | 2019-02-07 09:39 | P.PN ---
Subjective This is a pleasant 68-year-old female past medical history significant for COPD, diabetes mellitus, hypertension, dyslipidemia, hypothyroidism and diaphragmatic paralyzation s/p thoracotomy. She follows in the office with Dr. Spring. She is seen and examined sitting up in bed in no acute distress. She has been up and ambulating in the halls. She continues to have a pain in the chest that is very pleurtic in nature and reproducible with light inspiration. She is very tender to touch over the precordial region. Laboratory data reviewed, cardiac enzymes negative 3, sodium 136, potassium 4.1 and creatinine 0.44. Currently maintained on losartan/HCTZ 50/12.5 mg daily at bedtime and pravastatin 80 mg daily. Blood pressure 115/65 heart rate 87 afebrile maintaining oxygen saturation on nasal cannula. CTA chest is negative for pulmo nary embolism with evidence of varicosities posterior aspect of the right hemidiaphragm. There is no pleural or pericardial fluid noted. GENERAL: Well-appearing, well-nourished and in no acute distress. NECK: Supple without JVD or thyromegaly. LUNGS: Breath sounds clear to auscultation bilaterally. Respiration equal and unlabored. No wheezes, rales or rhonchi. HEART: Regular rate and rhythm without murmurs, rubs or gallops. S1 and S2 heard. Reproducible pleuritic left precordial discomfort. EXTREMITIES: Normal range of motion, no edema. No clubbing or cyanosis. Peripheral pulses intact. ASSESSMENT Pleuritic reproducible chest pain, atypical for angina. Acute coronary event. Hypertension Dyslipidemia Diabetes mellitus History of diaphragmatic paralyzation status post thoracotomy PLAN Obtain 2-D echocardiogram and Doppler study to assess cardiac structure and function. Low suspicion for pericarditis as well. No pericardial fluid noted on CTA chest. Symptoms are very atypical for angina, reproducible with inspiration and very tender on palpation. No stress test indicated at this time. Ongoing medical management per primary care team. Follow-up with Dr. Spring upon discharge. Nurse Practitioner note has been reviewed, I agree with a documented findings and plan of care. Patient was seen and examined. Objective - Vital Signs Vital signs: Vital Signs Temp 97.6 F 02/07/19 07:00 Pulse 87 02/07/19 08:00 Resp 18 02/07/19 08:00 BP 115/65 02/07/19 07:00 Pulse Ox 93 L 05/06/19 07:00 Intake & Output 02/06/19 02/07/19 02/07/19 18:59 06:59 18:59 Intake Total 480 Balance 480 Intake: Oral 480 Other: Voiding Method Toilet Toilet Toilet # Voids 1 1 - Labs CBC & Chem 7: 02/05/19 11:25 02/07/19 07:35 Labs: Abnormal Lab Results - Last 24 Hours (Table) 02/06/19 02/06/19 02/06/19 Range/Units 11:27 16:46 20:01 Sodium (137-145) mmol/L Chloride (98-107) mmol/L Carbon Dioxide (22-30) mmol/L Creatinine (0.52-1.04) mg/dL Glucose (74-99) mg/dL POC Glucose (mg/dL) 151 H 124 H 171 H (75-99) mg/dL 02/07/19 02/07/19 Range/Units 06:42 07:35 Sodium 136 L (137-145) mmol/L Chloride 97 L (98-107) mmol/L Carbon Dioxide 33 H (22-30) mmol/L Creatinine 0.44 L (0.52-1.04) mg/dL Glucose 145 H (74-99) mg/dL POC Glucose (mg/dL) 154 H (75-99) mg/dL
[2019-02-07 11:48] LABS: Glucose,Whole Blood 140 mg/dL (75-99)
--- NOTE | 2019-02-07 13:34 | XR ---
EXAMINATION TYPE: XR ribs LT DATE OF EXAM: 02/07/2019 CLINICAL HISTORY: Pain, Fall Four views of the ribs fail demonstrate evidence for displaced rib fracture or secondary sign of rib fracture. Visualized lungs are clear. No evidence for pneumothorax. IMPRESSION: No displaced rib fractures seen. ICD 10 NO FRACTURE, INITIAL EVALUATION
[2019-02-07] MEDS ORDERED: MAGNESIUM OXIDE 400 MG TAB PO SCH (14:30)
[2019-02-07] MEDS: traMADol 50 MG TAB PO PRN (14:40)
[2019-02-07 15:36] VITALS: BP 103/61; PULSE 85; TEMP 97.7
[2019-02-07 16:34] LABS: Glucose,Whole Blood 124 mg/dL (75-99)
[2019-02-07] MEDS: MELOXICAM 7.5 MG TAB PO SCH (17:11)
--- NOTE | 2019-02-07 17:44 | ECHOF ---
Referral Reason:cp, pleurtitic MEASUREMENTS -------- HEIGHT: 152.4 cm WEIGHT: 65.3 kg BP: 115/65 IVSd: 1.4 cm (0.6 - 1.1) LVIDd: 3.4 cm (3.9 - 5.3) LVPWd: 1.2 cm (0.6 - 1.1) IVSs: 1.6 cm LVIDs: 2.3 cm LVPWs: 1.8 cm LA Diam: 2.9 cm (2.7 - 3.8) RVIDd: 2.2 cm (< 3.3) LAESV Index (A-L): 23.03 ml/m Ao Diam: 3.1 cm (2.0 - 3.7) AV Cusp: 1.9 cm (1.5 - 2.6) EPSS: 0.2 cm MV E Leland: 0.72 m/s MV DecT: 362 ms MV A Leland: 1.17 m/s MV E/A Ratio: 0.62 RAP: 5.00 mmHg RVSP: 17.49 mmHg MV EF SLOPE: 25.43 mm/s (70 - 150) MV EXCURSION: 15.18 mm (> 18.000) FINDINGS -------- Sinus rhythm. This was a technically good study. The left ventricular size is normal. There is moderate concentric left ventricular hypertrophy. O verall left ventricular systolic function is normal with, an EF between 60 - 65 %. The right ventricle is normal in size. Normal LA size by volume 22+/-6 ml/m2. The right atrium is normal in size. There is mild aortic valve sclerosis. Moderate mitral annular calcification present. Mild tricuspid regurgitation present. Right ventricular systolic pressure is normal at < 35 mmHg. There is no pulmonic regurgitation present. The aortic root size is normal. Normal inferior vena cava with normal inspiratory collapse consistent with estimated right atrial pre ssure of 5 mmHg. There is no pericardial effusion. CONCLUSIONS -------- 1. Sinus rhythm. 2. This was a technically good study. 3. The left ventricular size is normal. 4. There is moderate concentric left ventricular hypertrophy. 5. Overall left ventricular systolic function is normal with, an EF between 60 - 65 %. 6. The right ventricle is normal in size. 7. Normal LA size by volume 22+/-6 ml/m2. 8. The right atrium is normal in size. 9. There is mild aortic valve sclerosis. 10. Moderate mitral annular calcification present. 11. Mild tricuspid regurgitation present. 12. Right ventricular systolic pressure is normal at < 35 mmHg. 13. There is no pulmonic regurgitation present. 14. The aortic root size is normal. 15. Normal inferior vena cava with normal inspiratory collapse consistent with estimated right atrial pressure of 5 mmHg. 16. There is no pericardial effusion. HR ASSOCIATE: Tasneem Sharpe RDCS
== END 2019-02-07 17:51 | disposition home or self-care (01) ==
LOC: EC 10:56 → 1SOBS 12:30
PROVIDERS: ADMIT Hospitalist; ATTEND Hospitalist
DX: R07.89 Other chest pain (principal); J44.9 Chronic obstructive pulmonary disease, unspecified; E83.42 Hypomagnesemia; I10 Essential (primary) hypertension; J98.6 Disorders of diaphragm; E03.9 Hypothyroidism, unspecified; E11.9 Type 2 diabetes mellitus without complications; M06.9 Rheumatoid arthritis, unspecified; K21.9 Gastro-esophageal reflux disease without esophagitis; G47.33 Obstructive sleep apnea (adult) (pediatric); E78.5 Hyperlipidemia, unspecified; R20.0 Anesthesia of skin; M19.90 Unspecified osteoarthritis, unspecified site; Z99.89 Dependence on other enabling machines and devices; F41.9 Anxiety disorder, unspecified; I86.8 Varicose veins of other specified sites; F32.9 Major depressive disorder, single episode, unspecified; Z99.81 Dependence on supplemental oxygen; Z79.890 Hormone replacement therapy; Z79.51 Long term (current) use of inhaled steroids; Z79.84 Long term (current) use of oral hypoglycemic drugs; Z79.899 Other long term (current) drug therapy; Z88.1 Allergy status to other antibiotic agents; Z88.8 Allergy status to other drugs, medicaments and biological substances; Z90.710 Acquired absence of both cervix and uterus; Z87.891 Personal history of nicotine dependence; Z82.5 Family history of asthma and other chronic lower respiratory diseases; Z83.3 Family history of diabetes mellitus; Z82.49 Family history of ischemic heart disease and other diseases of the circulatory system; Z83.2 Family history of diseases of the blood and blood-forming organs and certain disorders involving the immune mechanism
CPT/HCPCS: 96365; 96366; 96372 ×3; 96375; 96376; 99285; 36415; 94640 ×5; 94760; 93005; 93306; 85379; 83880; 80061; 80053; 80048; 83735 ×2; 84484; 85025; 85610; 85730; 87502; 71100; 71046; 71275; G0378 ×3; J1644 ×3; J2270; J3475; C9113 ×2; Q9967

== ENCOUNTER → 2019-03-01 | Outpatient (CLI) | payer MEDICARE ==
--- NOTE | 2019-03-01 09:11 | US ---
EXAMINATION TYPE: US abdomen limited DATE OF EXAM: 03/01/2019 COMPARISON: None CLINICAL HISTORY: R10.2 PELVIC AND PERINEAL PAIN. Patient states having pelvic pain and stomach issue s. No surgeries. Abdomen limited per order. EXAM MEASUREMENTS: Liver Length: 15.3 cm Gallbladder Wall: 0.2 cm CBD: 0.4 cm Right Kidney: 9.9 x 5.1 x 5.3 cm Pancreas: Appears echogenic in appearance. Tail not well visualized due to overlying bowel gas. Ma in pancreatic duct - 1.6 mm. Liver: Slightly hyperechoic echotexture throughout that may correspond to early mild degree hepatic s teatosis. Gallbladder: wnl Evidence for sonographic Gallo's sign: neg CBD: wnl Right Kidney: wnl IMPRESSION: No sonographic evidence of cholelithiasis nor acute cholecystitis. The liver is slightly hyperechoic. Correlate with liver function tests to evaluate for very mild degree hepatic steatosis.
--- NOTE | 2019-03-01 09:14 | US ---
EXAMINATION TYPE: US pelvis complete transvag DATE OF EXAM: 03/01/2019 COMPARISON: CLINICAL HISTORY: R10.2 PELVIC AND PERINEAL PAIN. Partial hysterectomy 1991- Patient states still hav ing one ovary but doesn't remember which one. Pelvic discomfort. TECHNIQUE: Transvaginal (TV) and Transabdominal (TA) . Transabdominal sonographic images of the pel vis were acquired. Transvaginal sonographic images were medically necessary to better assess the fol lowing anatomy: Ovaries Date of LMP: Hysterectomy EXAM MEASUREMENTS: Uterus: Surgically absent Endometrial Stripe: Surgically absent 1. Uterus: Surgically absent 2. Endometrium: Surgically absent 3. Right Ovary: Not visualized 4. Left Ovary: Not visualized 5. Bilateral Adnexa: wnl, no free fluid seen 6. Posterior cul-de-sac: no free fluid IMPRESSION: The uterus and ovaries are not visualized sonographically. No discrete adnexal mass is se en.
== END | disposition home or self-care (01) ==
LOC: RADUSWWP 07:16
PROVIDERS: ATTEND Family Medicine
DX: R93.2 Abnormal findings on diagnostic imaging of liver and biliary tract (principal); R10.2 Pelvic and perineal pain
CPT/HCPCS: 76705; 76830; 76856

== ENCOUNTER → 2019-03-25 | Outpatient (CLI) | payer MEDICARE ==
[2019-03-25 19:25] LABS: African American GFR (CKD) 109.3 (60.0-200.0)
== END | disposition home or self-care (01) ==
LOC: LABWHC1 11:46
PROVIDERS: ATTEND Orthopaedic Surgery Orthopaedic Surgery of the Spine
DX: M54.5 Low back pain (principal); M43.16 Spondylolisthesis, lumbar region; M41.26 Other idiopathic scoliosis, lumbar region; M62.81 Muscle weakness (generalized); Z48.89 Encounter for other specified surgical aftercare
CPT/HCPCS: 36415; 82565; 84520

== ENCOUNTER → 2019-04-01 | Outpatient (CLI) | payer MEDICARE ==
--- NOTE | 2019-04-02 13:52 | US ---
EXAMINATION TYPE: US kidneys/renal and bladder DATE OF EXAM: 04/01/2019 COMPARISON: US, CT CLINICAL HISTORY: R31.1 Micro Hematuria, urgency, frequency, UTI, had cystoscopy yesterday; bladder s uspension, diabetic EXAM MEASUREMENTS: Right Kidney: 10.2 x 5.7 x 5.1 cm Left Kidney: 10.5 x 5.1 x 4.8 cm Post Void Residual Volume: 8.6 mL Right Kidney: No hydronephrosis or masses seen Left Kidney: No hydronephrosis or masses seen; hyperechoic, calcified, parallel vessel kilpatrick noted on image #41. Bladder: wnl Bilateral Jets seen: yes Normal Post Void Residual: yes There is no evidence for hydronephrosis at this point in time. No nephrolithiasis is seen. No lonnie s are identified. The urinary bladder is anechoic. Bilateral ureteral jets are seen. IMPRESSION: 1. No abnormal urinary bladder postvoid residual. 2. No hydronephrosis or nephrolithiasis. Renal arterial calcifications are incidentally seen on the l eft.
== END | disposition home or self-care (01) ==
LOC: RADUSWWP 15:31
PROVIDERS: ATTEND Urology
DX: R31.1 Benign essential microscopic hematuria (principal); Z88.1 Allergy status to other antibiotic agents; Z88.8 Allergy status to other drugs, medicaments and biological substances
CPT/HCPCS: 76770

== ENCOUNTER → 2019-08-09 | Outpatient (CLI) | payer MEDICARE ==
[2019-08-09 07:38] LABS: Partial Thromboplastin Time 23.6 sec (22.0-30.0); Prothrombin Time 10.3 sec (9.0-12.0)
[2019-08-09 07:45] LABS: Appearance,Urine Clear (Clear); Bilirubin,Urine Negative (Negative); Blood,Urine Negative (Negative); Color,Urine Dark Yellow; Glucose,Urine (UA) Negative (Negative); Ketones,Urine Negative (Negative); Leukocyte Esterase,Urine Small (Negative); Mucus,Urine Rare /hpf; Nitrite,Urine Negative (Negative); Protein,Urine 1+ (Negative); RBC,Urine 4 /hpf (0-5); Specific Gravity,Urine 1.021 (1.001-1.035); Squamous Epithelial Cell,Urine <1 /hpf (0-4); WBC,Urine 25 /hpf (0-5)
[2019-08-09 07:46] LABS: Basophils % (A) 1 %; Eosinophils # (A) 0.1 k/uL (0-0.7); Eosinophils % (A) 2 %; HCT 43.9 % (34.0-46.0); HGB 14.3 gm/dL (11.4-16.0); Lymphocytes # (A) 1.5 k/uL (1.0-4.8); Lymphocytes % (A) 21 %; MCH 32.4 pg (25.0-35.0); MCHC 32.6 g/dL (31.0-37.0); MCV 99.5 fL (80.0-100.0); Mean Platelet Volume 6.8; Monocytes # (A) 0.3 k/uL (0-1.0); Monocytes % (A) 5 %; Neutrophils # (A) 4.9 k/uL (1.3-7.7); Neutrophils % (A) 70 %; Platelet Count 184 k/uL (150-450); RBC 4.41 m/uL (3.80-5.40); RDW 12.2 % (11.5-15.5)
[2019-08-09 07:49] LABS: ALT 30 U/L (9-52); AST 32 U/L (14-36); African American GFR (CKD) >90 (>60 ml/min/1.73 sqM); Albumin 4.3 g/dL (3.5-5.0); Alkaline Phosphatase 65 U/L (38-126); Anion Gap 7 mmol/L; Blood Urea Nitrogen 16 mg/dL (7-17); Calcium 9.4 mg/dL (8.4-10.2); Carbon Dioxide 33 mmol/L (22-30); Chloride 99 mmol/L (98-107); Glucose 114 mg/dL (74-99); Potassium 4.9 mmol/L (3.5-5.1); Sodium 139 mmol/L (137-145); Total Bilirubin 0.6 mg/dL (0.2-1.3)
== END | disposition home or self-care (01) ==
LOC: LABPAT 06:57
PROVIDERS: ATTEND Orthopaedic Surgery Orthopaedic Surgery of the Spine
DX: Z01.812 Encounter for preprocedural laboratory examination (principal); M48.00 Spinal stenosis, site unspecified; Z79.01 Long term (current) use of anticoagulants
CPT/HCPCS: 36415; 80053; 81001; 85025; 85610; 85730; 87070

== ENCOUNTER 2019-08-17 06:32 | Inpatient (IN) | payer MEDICARE ==
[~2019-08-17 06:32] MED LIST changes: +BACITRACIN 50,000 UNIT, POLYMYXIN B 500,000 UNIT in SODIUM CHLORIDE 0.9% IRRIGATIO 1,00... IRRIGATION ONE; -HEPARIN SODIUM,PORCINE 5,000 UNIT/ML 1 ML VIAL SQ ONE; -LACTATED RINGERS 1,000 ML IV SCH; -LEVOFLOXACIN 500MG-D5W PMX 500 MG in DEXTROSE/WATER 1 100ML.BAG IVPB ONE; +MIDAZOLAM 2 MG/2 ML VIAL IV PRN; -MORPHINE SULFATE 4 MG/ML SYRINGE IV PRN; -ceFAZolin IN SWFI 2 GM/20 ML SYRINGE IVP ONE; -fentaNYL (PF) 50 MCG/ML 2 ML AMP IV PRN
[2019-08-17] MEDS: LACTATED RINGERS 1,000 ML IV SCH ×2 (07:12→07:29)
[2019-08-17] MEDS: ONDANSETRON 4 MG/2 ML VIAL IVP ONE ×2 (07:13→14:06)
[2019-08-17 07:26] LABS: Glucose,Whole Blood 119 mg/dL (75-99)
[2019-08-17] MEDS ORDERED: LIDOCAINE 1% INJ 10MG/ML (20 ML MDV) ONE (07:27)
[2019-08-17] MEDS ORDERED: NEOSTIGMINE 1 MG/ML 10 ML VIAL ONE (07:27)
[2019-08-17] MEDS ORDERED: PHENYLEPHRINE-0.9% NACL SYG 1 MG/10 ML SYRINGE ONE (07:27)
[2019-08-17] MEDS ORDERED: PROPOFOL 10 MG/ML 20 ML VIAL IV ONE (07:27)
[2019-08-17] MEDS ORDERED: HEPARIN SODIUM,PORCINE 10,000 UNIT/ML 1 ML VIAL ONE (07:27)
[2019-08-17] MEDS ORDERED: MIDAZOLAM 2 MG/2 ML VIAL ONE (07:27)
[2019-08-17] MEDS ORDERED: fentaNYL (PF) 50 MCG/ML 2 ML AMP ONE (07:27)
[2019-08-17] MEDS ORDERED: GLYCOPYRROLATE 0.2 MG/ML 2 ML VIAL ONE (07:27)
[2019-08-17] MEDS ORDERED: ROCURONIUM BROMIDE 10 MG/ML 10 ML VIAL IV ONE (07:27)
[2019-08-17] MEDS ORDERED: SUCCINYLCHOLINE CHLORIDE 100 MG/5 ML SYR IV ONE (07:27)
[2019-08-17] MEDS ORDERED: BUPIVACAINE (PF) 0.25% 30 ML VIAL SQ ONE (08:18)
[2019-08-17] MEDS ORDERED: LIDOCAINE 1%-EPI 1:100,000 20 ML VIAL SQ ONE (08:18)
[2019-08-17] MEDS ORDERED: GELATIN SPONGE,ABSORB (SMALL) 1 EACH SPONGE TOPICAL ONE (08:18)
[2019-08-17] MEDS ORDERED: THROMBIN (BOVINE) 5,000 UNIT VIAL TOPICAL ONE (08:18)
[2019-08-17] MEDS ORDERED: LACTATED RINGERS 1,000 ML IV ONE (09:10)
--- NOTE | 2019-08-17 11:03 | FL ---
EXAMINATION TYPE: FL guidance operating room, XR lumbar spine 2 or 3V DATE OF EXAM: 08/17/2019 CLINICAL HISTORY: Low back pain. TECHNIQUE: Fluoroscopy. COMPARISON: None. FINDINGS: Fluoroscopic guidance was provided during pain relief procedure performed by Dr. Joseph. A total of 1.26 minutes of fluoroscopic time was utilized during the procedure with the first C-arm an d the second C-arm utilized 45 seconds of fluoroscopy time. 6 spot images are acquired. Images acquir ed shows localization of the lower lumbar spine at multiple levels and lumbar fusion surgery. IMPRESSION: As Above.
[2019-08-17] MEDS ORDERED: ONDANSETRON 4 MG/2 ML VIAL IVP PRN (11:12)
[2019-08-17] MEDS ORDERED: BENZOCAINE/MENTHOL LOZENG 1 EACH LOZENGE MUCOUS MEM PRN (11:12)
[2019-08-17] MEDS ORDERED: HYDROcodone/APAP 5-325MG 1 EACH TAB PO PRN (11:12)
[2019-08-17] MEDS ORDERED: MAGNESIUM HYDROXIDE 2,400 MG/10 ML CUP PO PRN (11:12)
[2019-08-17] MEDS ORDERED: NITROGLYCERIN SL TABS 0.4 MG TAB SUBLINGUAL PRN (11:15)
[2019-08-17] MEDS ORDERED: BACLOFEN 10 MG TAB PO PRN (11:15)
[2019-08-17] MEDS ORDERED: ALBUTEROL NEBULIZED 2.5 MG/3 ML INHALATION PRN (11:15)
[2019-08-17] MEDS ORDERED: traMADol 50 MG TAB PO PRN (11:15)
[2019-08-17] MEDS ORDERED: CALCIUM CARBONATE 500 MG CHEWABLE PO PRN (11:15)
--- NOTE | 2019-08-17 11:26 | P.OP ---
Date of Procedure: 08/17/19 Preoperative Diagnosis: Spondylolisthesis L3 4 L4 5, spinal stenosis L3 4 L4 5, disc protrusion L3 4 L4 5, history of prior laminectomy L4 5, low back pain, lower extremity radiculopathy, degenerative disc disease Postoperative Diagnosis: Same Anesthesia: GETA Pathology: none sent Condition: stable Disposition: PACU Description of Procedure: DESCRIPTION OF PROCEDURE(S): BRIEF OPERATIVE NOTE Preoperative Diagnosis: Spondylolisthesis L3 4 L4 5, spinal stenosis L3 4 L4 5, disc protrusion L3 4 L4 5, history of prior laminectomy L4 5, low back pain, lower extremity radiculopathy, degenerative disc disease Postoperative Diagnosis:Spondylolisthesis L3 4 L4 5, spinal stenosis L3 4 L4 5, disc protrusion L3 4 L4 5, history of prior laminectomy L4 5, low back pain, lower extremity radiculopathy, degenerative disc disease Procedure: Revision laminectomy and decompression L4 5 Laminectomy and decompression L3 4 Minimally invasive Posterior lateral decompression and facet fusion L3 4 L4 5 Minimally invasive Transforaminal lumbar interbody fusion for a 360 fusion L3 4 L4 5 Discectomy for decompression L3 4 L4 5 Placement of interbody graft L3 4 L4 5 Local autogenous bone grafting Harvesting of bone marrow aspirate be of the pedicle and vertebral body of L3 Use of Cell Saver Use of bone graft extenders Surgeon: Dr. Joseph Machine Presser: Gio Hernandez is present throughout the entire the case persistence during positioning, dissection, exposure, visualization, and all crucial elements of the case as well as closure. Anesthesia: General anesthesia per Dr. Stinson Estimated blood loss: Approximately 500 mL with blood given back through Cell Saver Complications: None apparent Components implanted: K to have minimally invasive Boring pedicle screw system with use of 6 screws measuring 6.5 x 45 mm in length with to cascade interbody cages and 2 rods along with 30 mL of DBX bone fibers and 10 mL of Bio4 bone graft matrix Disposition: To recovery room in good stable condition. OPERATIVE INDICATIONS The patient has had long-standing issues in their lower back and lower extremities. She has been having worsening symptoms over the past 6 months with her back and her lower extremities. She's been having worsening back pain and radiculopathy in her bilateral lower extremities worse on the left than the right. She had had prior issues in her low back had spinal stenosis at L4 5 and had undergone prior decompression at L4 5 in the past primarily for symptoms on the right side. She had done well after that surgery but developed increasing issues at her back and more toward her left lower extremity. She is not having any benefit despite aggressive conservative treatment. The patient has been through conservative treatment. We discussed various treatment options including surgery, and the patient wishes to proceed with surgery We discussed the risk, patient's alternatives and benefits of surgery including but not limited to, risk of bleeding risk of infection, risk of need for further surgery, risk of decreased, loss of motion, muscle function, malunion nonunion, hardware failure, nerve damage, paralysis, heart attack, blindness and . OPERATIVE SUMMARY After discussing all the risks, patient alternatives and benefits at length, the patient elected to proceed with surgical intervention, signed informed consent, and presented for their procedure. The patient was seen and examined in the preoperative holding area and the surgical site was marked. The patient was given antibiotics and brought to the operating room. The patient was sedated and intubated by anesthesia in standard fashion. The patient was positioned on to the operating room table in a prone position on the appropriate frame which was well-padded and well molded. We were careful to pad any bony prominences and pressure points. We were careful to maintain the patient's cervical spine and good neutral alignment and position throughout. The patient was prepped and draped in a normal standard fashion. An appropriate timeout and keystone protocol performed. We were able to proceed with the surgery. The local wound area was infiltrated with local anesthetic. I was able utilize C-arm guidance to establish appropriate position over the pedicles bilaterally at the appropriate levels at L3 4 and L4 5. With the appropriate levels confirmed was able to make small stab incisions over the appropriate pedicle sites bilaterally. Utilizing C-arm in his house able to establish a Jamshidi needle over the lateral aspect of the pedicle and advanced the trocar into the pedicle being careful not to breech superiorly inferiorly medially or laterally. Position was confirmed regularly with AP and lateral images on C-arm. I was able to establish the trocar into the pedicle appropriately into the posterior aspect of the vertebral body bilaterally at the appropriate levels of L3 4 and 5. This was done at each of the pedicle positions and each of the vertebrae. At L3 on the right I withdrew approximately 25 mL of bone marrow aspirate from the vertebral body for use later in supplementation of the bone graft. I was able place the guidewire into the trocar and into the vertebral body appropriately under C-arm guidance. Dissection was taken down over the wire to the appropriate starting position for the screw placed. The appropriate length screw was chosen, threaded over the guidewire and screwed appropriately into the pedicle and vertebral body under C- arm guidance in excellent alignment and position with good bony purchase. This is done at each of the screw sites at the appropriate levels at L3 4 and 5. With the screws intact I extended the incision to connect the screw hole sites on the most symptomatic side on the left. I started at L4 5 and then moved to L3 4, I dissected down to establish access over the pars and lamina to the base of the spinous process. I was able to expose the facet joint. The capsule the facet was taken down and showed some facet arthrosis at the joint. I was able to use a combination of curettes and Kerrison rongeurs and a high-speed drill to take down the facet joint and do a facetectomy. Partial laminectomy was also performed. I was able get excellent foraminal decompression and central decompression with undermining across midline to perform a laminectomy centrally and contralaterally. I was able get good central decompression. The ligamentum flavum was taken down to further decompress centrally and at bilateral neural foramen. There had been prior decompression at L4 5 and there was some scar tissue formation which by I was able to take down and get further decompression at L4 5. I was able to expose the disc space and visualize the traversing nerve root. Note was made of some disc protrusion at the level causing further compression of the nerve root. I was able to establish a annulotomy at the appropriate level protecting soft tissue and neural structures. A discectomy provided further decompression. Note was made of some disc desiccation at the disc. I performed a complete discectomy with accommodation of curettes and rasps and scrapers. I was able get good endplate preparation at the disc space. I sized for the appropriate size interbody spacer protecting the soft tissue and neural structures. The wound was copiously irrigated and suctioned dry. There is no evidence of any dural tear or leak. I was able to pack the disc space with local autogenous bone graft as well as a small amount of bone graft which was also placed into the interbody cage itself. Protecting the soft tissue structures and neural structures I was able place the interbody cage in good alignment and good position with good fit and fill at the interbody space. Position was confirmed with C-arm guidance. Good hemostasis maintained. There is no evidence of any dural tear or leak. The wound was irrigated and suctioned dry. With the hardware intact, intraoperative C-arm imaging was again taken which showed good alignment and position of the hardware at the appropriate levels at L3 4 and 5. We were then able to measure, contour and place the rods and appropriate hardware bilaterally. I was able to place capcrews, tighten them down, and torque them with the torque screwdriver appropriately. We had good reduction of the listhesis at L3 4 and L4 5. With this intact I was able to place the local autogenous bone graft with additional bone graft enhancer as necessary into the posterior lateral gutters over the decorticated transverse processes. The remainder of the bone graft was placed over the facet joint on the contralateral side after taking down the facet joint capsule. With the bone graft intact, a stable construct, and good decompression at the appropriate levels, we were able to proceed with closure. Good hemostasis was maintained. There is no evidence of dural tear or leak. The fascia was closed for a watertight closure. he subcuticular tissue was closed with absorbable suture. The wound was cleaned and dried and dressed with the appropriate dressing. The drapes were broken down. The patient was gently rolled back onto their hospital bed being careful to maintain their cervical spine and good neutral alignment and position. They were woken up by anesthesia, extubated, and brought to the recovery room in good stable condition. The patient will be admitted to the hospital for appropriate postoperative care, medical management and monitoring. We will continue to follow them closely about the postoperative course.
[2019-08-17] MEDS: HYDROmorphone 0.5 MG/0.5 ML SYRINGE IVP PRN ×5 (11:38→22:09)
[2019-08-17] MEDS: HYDROcodone/APAP 5-325MG 1 EACH TAB PO PRN ×2 (13:12→20:33)
[2019-08-17] MEDS: CLINDAMYCIN 900 MG in DEXTROSE 5% IN WATER 50 ML IVPB SCH ×4 (14:54→20:45)
[2019-08-17 15:24] VITALS: BMI 36.0
[2019-08-17 17:08] LABS: Glucose,Whole Blood 168 mg/dL (75-99)
[2019-08-17] MEDS: SODIUM CHLORIDE 0.9% 1,000 ML IV SCH (19:23)
[2019-08-17] MEDS: SYMBICORT 160-4.5 MCG INHALER INHALATION SCH (20:10)
[2019-08-17 20:27] LABS: Glucose,Whole Blood 183 mg/dL (75-99)
[2019-08-17] MEDS: PRAVASTATIN SODIUM 80 MG TAB PO SCH (20:32)
[2019-08-17] MEDS: GABAPENTIN 300 MG CAP PO SCH (20:32)
[2019-08-17] MEDS: LOSARTAN 50 MG TAB PO SCH (20:32)
[2019-08-17] MEDS: PANTOPRAZOLE 40 MG TABLET PO SCH (20:41)
--- NOTE | 2019-08-17 21:39 | P.CONS ---
History of Present Illness - Reason for Consult Consult date: 08/17/19 Medical management of hypertension and other medical problems - Chief Complaint Status post spinal surgery - History of Present Illness Patient is a 69-year-old female with a known history of COPD on home oxygen as needed, chronic right diaphragmatic paralysis, hypertension, diabetes type 2, hyperlipidemia, obstructive sleep apnea on CPAP at home and hypothyroidism and other medical problems was into the hospital for elective laminectomy and decompression of L4-L5 and L3-L4 vertebrae. Currently patient is complaining of back pain. No fever no chills. No headache or dizziness or lightheadedness. No chest pain or shortness of breath. Patient's blood pressure was elevated prior to surgery. Review of Systems Constitutional: Patient denies any fever or chills . No generalized weakness or weight loss. Abdomen: Patient denied nausea vomiting and diarrhea and abdominal pain. Cardiovascular: Patient denies any chest pain or short of breath no palpitations. Respiratory: patient denied any cough is from production. No shortness of breath Neurologic: Patient denied any numbness or tingling headache. Musculoskeletal: Patient denies any complaints of joint swelling or deformity. Back pain. Skin: Negative Psychiatric: Negative Endocrine: No heat or cold intolerance. No recent weight gain. Genitourinary: No dysuria or hematuria. All other 14 point ROS negative except the above Past Medical History Past Medical History: Asthma, COPD, Diabetes Mellitus, GERD/Reflux, Hyperlipidemia, Hypertension, Osteoarthritis (OA), Sleep Apnea/CPAP/BIPAP, Thyroid Disorder Additional Past Medical History / Comment(s): USES O2 @2.5 L AT NIGHT FOR SLEEP APNEA, no CPAP used, herniated disks, interstitial cystitis, current UTI -on rx History of Any Multi-Drug Resistant Organisms: None Reported Past Surgical History: Back Surgery, Bladder Surgery, Hernia Repair, Hysterectomy, Orthopedic Surgery, Tonsillectomy Additional Past Surgical History / Comment(s): THORACOTOMY X2 FOR A PARALYZED DIAPHRAGM, rt bunionectomy, rt side PARALYZED DIAPHRAGM Past Anesthesia/Blood Transfusion Reactions: Previous Problems w/ Anesthesia Additional Past Anesthesia/Blood Transfusion Reaction / Comm: "I can not lay on my back flat-can't breath" rt side PARALYZED DIAPHRAGM from scar tissue from hernia surgery and thoracotomy-(Noted on clearance from Dr Ortiz) Past Psychological History: Depression Smoking Status: Former smoker Past Alcohol Use History: Daily Additional Past Alcohol Use History / Comment(s): STARTED SMOKING AT AGE 20 QUIT IN 1991 SMOKED 1PPD, 1 drink daily Past Drug Use History: None Reported - Past Family History Mother Family Medical History: Deep Vein Thrombosis (DVT) Additional Family Medical History / Comment(s): . Father Family Medical History: Coronary Artery Disease (CAD), Diabetes Mellitus Additional Family Medical History / Comment(s): TRIPLE BYPASS, POWERHOUSE [employer] RE PLACMENT,PACEMAKER Medications and Allergies Home Medications Medication Instructions Recorded Confirmed Type Levothyroxine Sodium [Synthroid] 50 mcg PO DAILY 06/23/14 08/17/19 History Budesonide/Formoterol Fumarate 2 puff INHALATION RT-BID 10/14/16 08/17/19 History [Symbicort 160-4.5 Mcg Inhaler] Gabapentin [Neurontin] 300 mg PO BID 10/30/17 08/17/19 History Omeprazole [PriLOSEC] 20 mg PO AC-BRKFST 10/30/17 08/17/19 History Pravastatin Sodium 80 mg PO HS 10/30/17 08/17/19 History metFORMIN HCL [Glucophage] 500 mg PO DAILY 01/27/18 08/17/19 History Magnesium Oxide [Mag-Ox] 400 mg PO DAILY #3 tab 02/07/19 08/17/19 Rx Nitroglycerin Sl Tabs [Nitrostat] 0.4 mg SUBLINGUAL Q5M PRN #20 tab 02/07/19 08/17/19 Rx Albuterol Sulfate [Proair Hfa] 1 - 2 puff INHALATION Q6HR PRN 08/15/19 08/17/19 History Baclofen 10 mg PO TID PRN 08/15/19 08/17/19 History Calcium Carbonate 1,000 mg PO Q72H PRN 08/15/19 08/17/19 History Celecoxib [CeleBREX] 200 mg PO DAILY 08/15/19 08/17/19 History Cetirizine HCl 10 mg PO DAILY 08/15/19 08/17/19 History Diltiazem HCl [Diltiazem 12Hr ER] 120 mg PO QAM 08/15/19 08/17/19 History Losartan Potassium 50 mg PO HS 08/15/19 08/17/19 History Mirabegron [Myrbetriq] 50 mg PO DAILY 08/15/19 08/17/19 History Multivitamins, Thera [Multivitamin 1 tab PO DAILY 08/15/19 08/17/19 History (formulary)] Nitrofurantoin Monohyd/M-Cryst 100 mg PO Q12HR 08/15/19 08/17/19 History [Macrobid] traMADol HCl [Ultram] 50 mg PO TID PRN 08/15/19 08/17/19 History Allergies Allergy/AdvReac Type Severity Reaction Status Date / Time cephalexin monohydrate Allergy Rash/Hives Verified 08/17/19 06:53 [From Keflex] lisinopril Allergy Cough Verified 08/17/19 06:53 dust,tree,grass,bennett,cat,horse Allergy Unknown Uncoded 08/17/19 06:53 Physical Exam Vitals: Vital Signs Temp Pulse Pulse Resp BP BP Pulse Ox 08/17/19 11:34 57 L 16 146/67 100 08/17/19 11: 97.1 F L 73 16 164/77 95 08/17/19 06:57 98.1 F 84 18 186/84 96 Intake and Output 08/16/19 08/17/19 08/17/19 22:59 06:59 14:59 Intake Total 1981 Output Total 1200 Balance 782 Intake: IV 1981 Output: Urine 650 Estimated Blood Loss 550 Other: Weight 67.132 kg 83.642 kg PHYSICAL EXAMINATION: Patient is lying in the bed comfortably, no acute distress, awake alert and oriented.. HEENT: Normocephalic. Neck is supple. Pupils reactive. Nostrils clear. Oral cavity is moist. Ears reveal no drainage. Neck reveals no JVD, carotid bruits, or thyromegaly. CHEST EXAMINATION: Trachea is central. Symmetrical expansion. Bibasilar di minished air entry. Lung couch clear to auscultation and percussion. CARDIAC: Normal S1, S2 with no gallops. No murmurs ABDOMEN: Soft. Bowel sounds normal. No organomegaly. No abdominal bruits. Extremities: reveal no edema. No clubbing or cyanosis Neurologically awake, alert, oriented x3 with well-coordinated movements. No focal deficits noted Skin: No rash or skin lesions. Psychiatric: Coperative. Nonsuicidal Musculoskeletal: No joint swelling or deformity. Normal range of motion. Results Labs: Abnormal Lab Results - Last 24 Hours (Table) 08/17/19 Range/Units 07:09 POC Glucose (mg/dL) 119 H (75-99) mg/dL Assessment and Plan Assessment: Status post Revision laminectomy and decompression L4 5 and Laminectomy and decompression L3 4 postoperative day 0 Uncontrolled hypertension prior to surgery. Improved now Diabetes type 2 [id number] Hypertension. On Cardizem and losartan at home. Osteoarthritis Objective sleep apnea on CPAP at home Hypothyroidism COPD on home oxygen at 2.5 L at night Depression Previous history of smoking and morbid obesity with BMI 36.0 DVT prophylaxis Plan: Patient will be continued on pain management, bowel regimen and DVT prophylaxis as per primary team. Continue with incentive spirometry and encourage ambulation. Continue with home blood pressure medications the form of Cardizem and losartan. Insulin sliding scale. Duonebs as needed and oxygen therapy. We will continue to follow with you and further recommendations based on the clinical course. Thank you for your consult. Time with Patient: Greater than 30
[2019-08-18] MEDS: HYDROmorphone 1 MG/ML 1 ML SYRINGE IVP PRN ×5 (01:22→22:34)
[2019-08-18] MEDS: SODIUM CHLORIDE 0.9% 1,000 ML IV SCH ×2 (01:30→19:25)
[2019-08-18] MEDS: LACTATED RINGERS 1,000 ML IV SCH (02:32)
[2019-08-18] MEDS: HYDROcodone/APAP 5-325MG 1 EACH TAB PO PRN ×4 (02:45→19:29)
[2019-08-18] MEDS: LEVOTHYROXINE 50 MCG TAB PO SCH (04:31)
[2019-08-18 07:10] LABS: Glucose,Whole Blood 157 mg/dL (75-99)
[2019-08-18] MEDS ORDERED: PANTOPRAZOLE 40 MG TABLET PO SCH (07:30)
[2019-08-18] MEDS: PANTOPRAZOLE 40 MG TABLET PO SCH ×2 (07:32→17:39)
[2019-08-18] MEDS: LORATADINE 10 MG TAB PO SCH (07:32)
[2019-08-18] MEDS: metFORMIN 500 MG TAB PO SCH (07:32)
[2019-08-18] MEDS: MULTIVITAMINS, THERA 1 EACH TAB PO SCH (07:32)
[2019-08-18] MEDS: GABAPENTIN 300 MG CAP PO SCH ×2 (07:32→20:09)
[2019-08-18] MEDS: MAGNESIUM OXIDE 400 MG TAB PO SCH (07:32)
[2019-08-18 07:33] LABS: Basophils % (A) 0 %; Eosinophils # (A) 0.1 k/uL (0-0.7); Eosinophils % (A) 1 %; HGB 12.4 gm/dL (11.4-16.0); Lymphocytes # (A) 0.6 k/uL (1.0-4.8); Lymphocytes % (A) 4 %; MCH 33.3 pg (25.0-35.0); MCHC 33.5 g/dL (31.0-37.0); MCV 99.4 fL (80.0-100.0); Mean Platelet Volume 6.7; Monocytes # (A) 0.7 k/uL (0-1.0); Monocytes % (A) 5 %; Neutrophils # (A) 12.7 k/uL (1.3-7.7); Neutrophils % (A) 89 %; Platelet Count 152 k/uL (150-450); RBC 3.72 m/uL (3.80-5.40); RDW 12.3 % (11.5-15.5); WBC 14.3 k/uL (3.8-10.6)
[2019-08-18] MEDS: DILTIAZEM CD 120 MG CAP.ER.24H PO SCH (07:33)
--- NOTE | 2019-08-18 07:37 | P.PN ---
Progress Note - Text Progress Note Date: 08/18/19 Pt is seen and examined. comfortable this am. pain was worse overnight but subsidiig. denies nausea, vomiting. states legs are doing well AVSS abd soft, NT ext, sust DF,PF,EHL calves soft nontender A/P POD#1 minimally invasive decompression and fusion of L3-4, L4-5 for spondulolistheiss and spinal stenosis with radiculopathy improving well thus far. can increase mobility today wiht PT mobilize pain controlled adequately with orals and IV will follow closely
[2019-08-18 07:43] LABS: African American GFR (CKD) >90 (>60 ml/min/1.73 sqM); Anion Gap 7 mmol/L; Blood Urea Nitrogen 15 mg/dL (7-17); Calcium 8.5 mg/dL (8.4-10.2); Carbon Dioxide 28 mmol/L (22-30); Chloride 96 mmol/L (98-107); Glucose 145 mg/dL (74-99); Sodium 131 mmol/L (137-145)
[2019-08-18] MEDS: SYMBICORT 160-4.5 MCG INHALER INHALATION SCH ×2 (08:25→21:02)
[2019-08-18] MEDS ORDERED: SENNOSIDES-DOCUSATE SODIUM 1 EACH TAB PO SCH (09:00)
[2019-08-18] MEDS: MYRBETRIQ (Mirabegron) 50 MG PO SCH (11:19)
[2019-08-18 11:57] LABS: Glucose,Whole Blood 170 mg/dL (75-99)
[2019-08-18 14:29] LABS: Hemoglobin A1C 6.2 % (4.0-6.0)
[2019-08-18 17:09] LABS: Glucose,Whole Blood 226 mg/dL (75-99)
[2019-08-18] MEDS: LOSARTAN 50 MG TAB PO SCH (20:09)
[2019-08-18] MEDS: PRAVASTATIN SODIUM 80 MG TAB PO SCH (20:09)
--- NOTE | 2019-08-18 22:12 | P.PN ---
Subjective Progress Note Date: 08/18/19 Principal diagnosis: elective laminectomy and decompression of L4-L5 and L3-L4 Patient is a 69-year-old female with a known history of COPD on home oxygen as needed, chronic right diaphragmatic paralysis, hypertension, diabetes type 2, hyperlipidemia, obstructive sleep apnea on CPAP at home and hypothyroidism and other medical problems was into the hospital for elective laminectomy and decompression of L4-L5 and L3-L4 vertebrae. Currently patient is complaining of back pain. No fever no chills. No headache or dizziness or lightheadedness. No chest pain or shortness of breath. Patient's blood pressure was elevated prior to surgery. 08/18/2019 Patient denied any complaints of chest pain or shortness of breath. Back pain is better. Patient is currently able to sit on the side of the bed. Denied any complaints of nausea or vomiting. Patient does have urinary retention since morning and is considering straight catheterization now. Does have lower abdominal tenderness. No fever no chills. WBC 14.3 likely inflammatory reaction. Active Medications Hydrocodone Bitart/Acetaminophen ([place] 5-325) 1 each PO Q4HR PRN PRN Reason: Moderate Pain Hydrocodone Bitart/Acetaminophen ([place] 5-325) 2 each PO Q4HR PRN PRN Reason: Moderate Pain Last Admin: 08/18/19 19:29 Dose: 2 each Documented by: Albuterol Sulfate (Ventolin Nebulized) 2.5 mg INHALATION RT-Q6H PRN PRN Reason: Shortness Of Breath Baclofen (Lioresal) 10 mg PO TID PRN PRN Reason: Pain Benzocaine/Menthol (Cepacol Lozenge) 1 each MUCOUS MEM Q4HR PRN PRN Reason: Sore Throat Budesonide/Formoterol Fumarate (Symbicort 160-4.5 Mcg Inhaler) 2 puff INHALATION RT-BID [facility] Last Admin: 08/18/19 21:02 Dose: 2 puff Documented by: Calcium Carbonate/Glycine (Tums) 1,000 mg PO Q72H PRN PRN Reason: Heartburn Diltiazem HCl (Cardizem Cd) 120 mg PO QAM [facility] Last Admin: 08/18/19 07:33 Dose: 120 mg Documented by: Gabapentin (Neurontin) 300 mg PO BID [facility] Last Admin: 08/18/19 20:09 Dose: 300 mg Documented by: Hydromorphone HCl (Dilaudid) 0.5 mg IVP Q4HR PRN PRN Reason: Pain Last Admin: 08/17/19 22:09 Dose: 0.5 mg Documented by: Hydromorphone HCl (Dilaudid) 1 mg IVP Q3HR PRN PRN Reason: Pain Last Admin: 08/18/19 17:39 Dose: 1 mg Documented by: Lactated Ringer's (Lactated Ringers) 1,000 mls @ 20 mls/hr IV .Q24H [facility] Last Admin: 08/18/19 02:32 Dose: Not Given Documented by: Sodium Chloride (Saline 0.9%) 1,000 mls @ 75 mls/hr IV .[id number] [facility] Last Admin: 08/18/19 19:25 Dose: Not Given Documented by: Levothyroxine Sodium (Synthroid) 50 mcg PO 0630 [facility] Last Admin: 08/18/19 04:31 Dose: 50 mcg Documented by: Lidocaine HCl (.Xylocaine 1% Inj (10mg/Ml) For Iv Start) 0.1 ml INTRADERMA PER PROTOCOL PRN PRN Reason: IV Start Loratadine (Claritin) 10 mg PO DAILY [facility] Last Admin: 08/18/19 07:32 Dose: 10 mg Documented by: Losartan Potassium (Cozaar) 50 mg PO HS [facility] Last Admin: 08/18/19 20:09 Dose: 50 mg Documented by: Magnesium Hydroxide (Milk Of Magnesia) 2,400 mg PO DAILY PRN PRN Reason: Constipation Magnesium Oxide (Mag-Ox) 400 mg PO DAILY [facility] Last Admin: 08/18/19 07:32 Dose: 400 mg Documented by: Metformin HCl (Glucophage) 500 mg PO DAILY [facility] Last Admin: 08/18/19 07:32 Dose: 500 mg Documented by: Multivitamins (Theragran) 1 each PO DAILY [facility] Last Admin: 08/18/19 07:32 Dose: 1 each Documented by: Nitroglycerin (Nitrostat) 0.4 mg SUBLINGUAL Q5M PRN PRN Reason: Chest Pain Myrbetriq ( (Mirabegron) 50 Mg) 50 mg PO DAILY [facility] Last Admin: 08/18/19 11:19 Dose: Not Given Documented by: Ondansetron HCl (Zofran) 4 mg IVP Q8HR PRN PRN Reason: Nausea Last Admin: 08/17/19 19:14 Dose: 4 mg Documented by: Pantoprazole Sodium (Protonix) 40 mg PO AC-BID [facility] Last Admin: 08/18/19 17:39 Dose: 40 mg Documented by: Pravastatin Sodium (Pravachol) 80 mg PO HS [facility] Last Admin: 08/18/19 20:09 Dose: 80 mg Documented by: Senna/Docusate Sodium (Senokot-S) 1 each PO DAILY [facility] Last Admin: 08/18/19 07:32 Dose: 1 each Documented by: Tramadol HCl (Ultram) 50 mg PO TID PRN PRN Reason: Pain Last Admin: 08/17/19 20:41 Dose: 50 mg Documented by: Objective - Vital Signs Vital signs: Vital Signs Temp 98.2 F 08/18/19 19:38 Pulse 117 H 08/18/19 19:38 Resp 18 08/18/19 19:38 BP 122/68 08/18/19 19:38 Pulse Ox 99 08/18/19 19:38 Intake & Output 08/18/19 08/18/19 08/19/19 06:59 18:59 06:59 Intake Total 630 180 Output Total 1450 300 Balance -820 -120 Intake: Intake, IV Titration 450 Amount Sodium Chloride 0.9% 1, 450 000 ml @ 75 mls/hr IV . [id number] [facility] Rx#:[id number] Oral 180 180 Output: Urine 1450 300 Uretheral (Finn) 550 Other: Voiding Method Indwelling Catheter Toilet Toilet - Exam PHYSICAL EXAMINATION: Patient is lying in the bed comfortably, no acute distress, awake alert and oriented.. HEENT: Normocephalic. Neck is supple. Pupils reactive. Nostrils clear. Oral cavity is moist. Ears reveal no drainage. Neck reveals no JVD, carotid bruits, or thyromegaly. CHEST EXAMINATION: Trachea is central. Symmetrical expansion. Bibasilar diminished air entry. Lung couch clear to auscultation and percussion. CARDIAC: Normal S1, S2 with no gallops. No murmurs ABDOMEN: Soft. Bowel sounds normal. No organomegaly. No abdominal bruits. Extremities: reveal no edema. No clubbing or cyanosis Neurologically awake, alert, oriented x3 with well-coordinated movements. No focal deficits noted Skin: No rash or skin lesions. Psychiatric: Coperative. Nonsuicidal Musculoskeletal: No joint swelling or deformity. Normal range of motion. - Labs CBC & Chem 7: 08/18/19 06:52 08/18/19 06:52 Labs: Abnormal Lab Results - Last 24 Hours (Table) 08/18/19 08/18/19 08/18/19 Range/Units 06:52 06:52 06:52 WBC 14.3 H (3.8-10.6) k/uL RBC 3.72 L (3.80-5.40) m/uL Neutrophils # 12.7 H (1.3-7.7) k/uL Lymphocytes # 0.6 L (1.0-4.8) k/uL Sodium 131 L (137-145) mmol/L Chloride 96 L (98-107) mmol/L Glucose 145 H (74-99) mg/dL POC Glucose (mg/dL) (75-99) mg/dL Hemoglobin A1c 6.2 H (4.0-6.0) % 08/18/19 08/18/19 08/18/19 Range/Units 06:56 11:45 16:58 WBC (3.8-10.6) k/uL RBC (3.80-5.40) m/uL Neutrophils # (1.3-7.7) k/uL Lymphocytes # (1.0-4.8) k/uL Sodium (137-145) mmol/L Chloride (98-107) mmol/L Glucose (74-99) mg/dL POC Glucose (mg/dL) 157 H 170 H 226 H (75-99) mg/dL Hemoglobin A1c (4.0-6.0) % Assessment and Plan Assessment: Status post Revision laminectomy and decompression L4 5 and Laminectomy and decompression L3 4 postoperative day 1 Urinary retention likely due to immobility and narcotic pain medications. S traight catheterization as needed. Mild leukocytosis likely due to postsurgical inflammatory reaction. Hypovolemic hyponatremia. Uncontrolled hypertension prior to surgery. Improved now Diabetes type 2 [id number] Hypertension. On Cardizem and losartan at home. Osteoarthritis Objective sleep apnea on CPAP at home Hypothyroidism COPD on home oxygen at 2.5 L at night Depression Previous history of smoking and morbid obesity with BMI 36.0 DVT prophylaxis Plan: Patient will be continued on pain management, bowel regimen and DVT prophylaxis as per primary team. Continue with incentive spirometry and encourage ambulation. Nik catheterization as needed. Continue with home blood pressure medications in the form of Cardizem and losartan. Insulin sliding scale. Duonebs as needed and oxygen therapy. We will continue to follow with you and further recommendations based on the clinical course. Time with Patient: Greater than 30
[2019-08-19] MEDS: HYDROcodone/APAP 5-325MG 1 EACH TAB PO PRN ×5 (01:24→22:13)
[2019-08-19] MEDS: SODIUM CHLORIDE 0.9% 1,000 ML IV SCH ×2 (03:13→15:10)
[2019-08-19] MEDS: LEVOTHYROXINE 50 MCG TAB PO SCH (05:25)
[2019-08-19 07:16] LABS: Glucose,Whole Blood 164 mg/dL (75-99)
[2019-08-19] MEDS: SYMBICORT 160-4.5 MCG INHALER INHALATION SCH ×2 (08:38→20:58)
[2019-08-19] MEDS: PANTOPRAZOLE 40 MG TABLET PO SCH ×2 (08:40→17:35)
[2019-08-19] MEDS: LACTATED RINGERS 1,000 ML IV SCH (08:46)
[2019-08-19] MEDS ORDERED: SENNOSIDES-DOCUSATE SODIUM 1 EACH TAB PO PRN (08:53)
--- NOTE | 2019-08-19 08:53 | P.PN ---
Progress Note - Text Progress Note Date: 08/19/19 Orthopedic Spine: History of present illness: Patient is a pleasant 69-year-old female who is seen and examined at the bedside following posterior lateral decompression and fusion performed Thursday. Patient states they are doing well postsurgically. She does continue to require some Dilaudid IV and [place] regularly every 4 hours for pain control. She's had significant improvement of her right lower extremity radiculopathy symptoms postoperatively. She continues to have pain at the surgical sites which is exacerbated with movements of her spine and trying to get out of bed. She is working with physical therapy and has been able to ambulate the hallways with the assistance of a walker. She does feel some soreness in her thighs and calves due to her increase activities with physical therapy. Currently does not complain of nausea, vomiting, fever, or chills. Patient states pain has been adequately controlled. Patient is eating and voiding freely without difficulty. She was having difficulty with urination yesterday required straight cath eterization. She has now been able to urinate on her own without difficulty since 10 PM yesterday evening. She's been seen by case management is also planning for home care at the time of discharge. Her is also planning to get an elevated toilet seat for home. Patient continues to be seen and examined by medicine for her other medical diagnoses including hypertension, hyperlipidemia, hypothyroidism, COPD, and liver disease. Physical Exam Lumbar Fusion: Status post surgical day number 2 Patient is awake, alert, and oriented 3 Vital signs stable Good chest excursion with deep inspiration and expiration Abdomen soft nontender; palpable abdominal hernia Dorsiflexion, plantarflexion, and extensor hallucis longus positive sustained bilaterally No signs or symptoms of DVT; no calf pain; pneumatic cuffs not currently intact bilateral lower extremities Dressing is dry and intact with some dried blood over the right superior dressing; no erythema, purulence, or signs of infection No active drainage from the surgical site Neurovascularly intact bilaterally lower extremities Assessment: Status post L3-4 and L4-5 minimally invasive posterior lateral decompression and fusion with transforaminal lumbar interbody fusion Low back pain L3-4 and L4-5 spondylolisthesis History of previous laminectomy L4-5 Lower extremity radiculopathy improved postoperatively Lumbar degenerative disc disease Hypertension Hyperlipidemia Hypothyroidism COPD Liver disease Plan: 1. Ambulate as tolerated; work with Physical Therapy to increase mobilization; patient may continue use walker to aid in ambulation as needed 2. Continue pain control with IV and oral medications; will plan to again weaning the patient off of IV Dilaudid in anticipation for discharge home on the next 1-2 days. We'll plan to discontinue [place] 5 mg/325 mg and increased to [place] 7.5 mg/325 mg 1-2 tabs every 4 hours as needed for pain. MAPS has been reviewed today, 08/19/2019, with an Overall Overdose Risk Score of 190. An "Opiod Start Talking" Form has been signed and placed in the patient's chart. A prescription has been written for [place] 7.5 mg/325 mg 1-2 tabs every 6 hours as needed for pain, dispensed #56. Patient should avoid anti- inflammatories over the next 6 weeks postoperatively. 3. Dressing to remain intact with silver dressing and Tegaderm; patient may shower with Tegaderm intact; dressing to be changed prior to discharge home. 4. Medical management can continue to manage patient for patient's other medical diagnoses including hypertension, hyperlipidemia, hypothyroidism, COPD, and liver disease. 5. We will continue to follow the patient closely; patient is able to improve over the next 1-2 days we'll plan for discharge home 6. Patient takes Senokot to help facilitate bowel movements approximately 2 tabs per day. While in the hospital she's been receiving one tablet per day. I'll plan to increase this to 2 tabs daily as needed for constipation. 7. At the time of discharge home, patient is planning for home care. She needs a walker to aid in ambulation at discharge. Her family is also planning to obta in a toilet seat riser. 8. Patient can follow-up with Gio Alamo PA-C or Dr. Ranjit Joseph at [facility] in 2-3 weeks following discharge
[2019-08-19] MEDS: metFORMIN 500 MG TAB PO SCH (10:46)
[2019-08-19] MEDS: LORATADINE 10 MG TAB PO SCH (10:46)
[2019-08-19] MEDS: GABAPENTIN 300 MG CAP PO SCH ×2 (10:46→20:14)
[2019-08-19] MEDS: MULTIVITAMINS, THERA 1 EACH TAB PO SCH (10:47)
[2019-08-19] MEDS: DILTIAZEM CD 120 MG CAP.ER.24H PO SCH (10:47)
[2019-08-19] MEDS: MAGNESIUM OXIDE 400 MG TAB PO SCH (10:48)
[2019-08-19] MEDS: MYRBETRIQ (Mirabegron) 50 MG PO SCH (10:51)
[2019-08-19 11:54] LABS: Glucose,Whole Blood 143 mg/dL (75-99)
--- NOTE | 2019-08-19 12:17 | CDI ---
Documentation Clarification Form Date: 08/19/2019 12:09:20 PM From: Tanvi Souza CCS, CCDS Admit Date: 08/17/2019 6:32:00 AM Patient Name: Dayan Avila Visit Number: [id number] Discharge Date: ATTENTION: The Clinical Documentation Specialists (CDI) and [facility] Coding Staff appreciate your assistance in clarifying documentation. Please respond to the clarification below the line at the bottom and electronically sign. The CDI & [facility] Coding staff will review the response and follow-up if needed. Please note: Queries are made part of the Legal Health Record. If you have any questions, please contact the author of this message via ITS. Dr. Raquel Connell: Per the 08/18 medical management progress note: "Urinary retention likely due to immobility and narcotic pain medications. Straight catheterization as needed." Patients Admitting Diagnosis: Spondylolisthesis L3 4 L4 5, spinal stenosis L3 4 L4 5, disc protrusion L3 4 L4 5, history of prior laminectomy L4 5, low back pain, lower extremity radiculopathy, degenerative disc disease. Post-Operative Diagnosis: Same. Procedure performed: Revision laminectomy and decompression L4 5. Laminectomy and decompression L3 4. Minimally invasive Posterior lateral decompression and facet fusion L3 4 L4 5. Minimally invasive Transforaminal lumbar interbody fusion for a 360 fusion L3 4 L4 5. Discectomy. History/Risk Factors: Spinal stenosis as above. COPD on home oxygen as needed, chronic right diaphragmatic paralysis, hypertension, diabetes type 2, hyperlipidemia, obstructive sleep apnea on CPAP at home and hypothyroidism. Clinical Indicators: Documented urinary retention requiring straight cath & lower abdominal pain. Treatment: Straight cath x2 with dark chelsy & subsequent straw colored urine. IV antibiotics & pain medication postoperatively. In order to accurately reflect this patients severity of illness, please clarify if the patient's urinary retention occurring postoperatively is the result of the surgical procedure and the significance to the patient's care? Yes No Other, please specify Unable to determine (Last Revision: January 2018) Urinary retention likely due to narcotic pain medications. MTDD
[2019-08-19 17:10] LABS: Glucose,Whole Blood 164 mg/dL (75-99)
[2019-08-19] MEDS: PRAVASTATIN SODIUM 80 MG TAB PO SCH (20:14)
[2019-08-19] MEDS: LOSARTAN 50 MG TAB PO SCH (20:14)
[2019-08-19 20:21] LABS: Glucose,Whole Blood 191 mg/dL (75-99)
[2019-08-20] MEDS: HYDROcodone/APAP 5-325MG 1 EACH TAB PO PRN ×5 (02:41→20:18)
[2019-08-20] MEDS: SODIUM CHLORIDE 0.9% 1,000 ML IV SCH ×2 (04:23→20:15)
[2019-08-20] MEDS: LACTATED RINGERS 1,000 ML IV SCH (04:23)
[2019-08-20] MEDS: LEVOTHYROXINE 50 MCG TAB PO SCH (06:41)
[2019-08-20 06:53] LABS: Glucose,Whole Blood 138 mg/dL (75-99)
[2019-08-20] MEDS: SYMBICORT 160-4.5 MCG INHALER INHALATION SCH ×2 (09:13→20:36)
[2019-08-20] MEDS: LORATADINE 10 MG TAB PO SCH (09:39)
[2019-08-20] MEDS: GABAPENTIN 300 MG CAP PO SCH ×2 (09:39→20:18)
[2019-08-20] MEDS: DILTIAZEM CD 120 MG CAP.ER.24H PO SCH (09:39)
[2019-08-20] MEDS: MULTIVITAMINS, THERA 1 EACH TAB PO SCH (09:39)
[2019-08-20] MEDS: metFORMIN 500 MG TAB PO SCH (09:39)
[2019-08-20] MEDS: PANTOPRAZOLE 40 MG TABLET PO SCH ×2 (09:39→17:14)
[2019-08-20] MEDS: MAGNESIUM OXIDE 400 MG TAB PO SCH (09:39)
[2019-08-20] MEDS: MYRBETRIQ (Mirabegron) 50 MG PO SCH (10:05)
--- NOTE | 2019-08-20 11:53 | P.PN ---
Progress Note - Text Progress Note Date: 08/20/19 Postoperative day #3 Patient is seen and examined today at bedside. The patient has some pain around the surgical site as expected. Pain is being controlled with medication. She has been able to increase her mobility and ambulation. She is voiding freely. She is passing gas well but has not yet had a bowel movement. She denies any nausea or vomiting. Her legs are feeling good. Physical Exam Afebrile with stable vital signs Abdomen is soft nontender. Chest has good excursion deep and space expiration The incision site is clean dry and intact. No erythema there is no purulence. Her dressing does not have any active drainage on it. Her wound appears to be healing appropriately. Extremities have not had neurologic change from prior to surgery. She has sustained dorsal flexion plantar flexion and EHL intact. Calves and thighs were soft nontender without evidence of DVT. Assessment/Plan Postoperative day #3 status post minimally invasive decompression and fusion L3 4 L4 5 for her spondylolisthesis with spinal stenosis and lower extremity radiculopathy Patient is progressing as expected from the surgery. She is making good progress in terms of her diet. She is voiding freely and is passing gas appropriately. We will continue to increase the patient's mobilization with therapy. She is moving better and getting in and out of bed but still has some difficulty with bending which is understandable. We will continue pain control with oral or IV medications. It is likely that she'll be will be discharged home tomorrow with home health. We'll continue to follow patient closely.
[2019-08-20 11:54] LABS: Glucose,Whole Blood 168 mg/dL (75-99)
[2019-08-20 17:11] LABS: Glucose,Whole Blood 154 mg/dL (75-99)
--- NOTE | 2019-08-20 18:17 | P.PN ---
Subjective Progress Note Date: 08/19/19 Principal diagnosis: elective laminectomy and decompression of L4-L5 and L3-L4 Patient is a 69-year-old female with a known history of COPD on home oxygen as needed, chronic right diaphragmatic paralysis, hypertension, diabetes type 2, hyperlipidemia, obstructive sleep apnea on CPAP at home and hypothyroidism and other medical problems was into the hospital for elective laminectomy and decompression of L4-L5 and L3-L4 vertebrae. Currently patient is complaining of back pain. No fever no chills. No headache or dizziness or lightheadedness. No chest pain or shortness of breath. Patient's blood pressure was elevated prior to surgery. 08/18/2019 Patient denied any complaints of chest pain or shortness of breath. Back pain is better. Patient is currently able to sit on the side of the bed. Denied any complaints of nausea or vomiting. Patient does have urinary retention since morning and is considering straight catheterization now. Does have lower abdominal tenderness. No fever no chills. WBC 14.3 likely inflammatory reaction. 08/19/2019 Patient is currently able to sit on the side of the bed. Still complains of back pain but is improving slowly. patient didn't require straight catheterization twice last night. Patient is currently able to void spon taneously. Urinary retention has resolved now. Patient is able to participate in physical therapy. Otherwise patient is afebrile. Anticipate discharge home in next 24-48 hours. Active Medications Hydrocodone Bitart/Acetaminophen ([place] 5-325) 1 each PO Q4HR PRN PRN Reason: Moderate Pain Hydrocodone Bitart/Acetaminophen ([place] 5-325) 2 each PO Q4HR PRN PRN Reason: Moderate Pain Last Admin: 08/18/19 19:29 Dose: 2 each Documented by: Albuterol Sulfate (Ventolin Nebulized) 2.5 mg INHALATION RT-Q6H PRN PRN Reason: Shortness Of Breath Baclofen (Lioresal) 10 mg PO TID PRN PRN Reason: Pain Benzocaine/Menthol (Cepacol Lozenge) 1 each MUCOUS MEM Q4HR PRN PRN Reason: Sore Throat Budesonide/Formoterol Fumarate (Symbicort 160-4.5 Mcg Inhaler) 2 puff INHALAT ION RT-BID JHOAN Last Admin: 08/18/19 21:02 Dose: 2 puff Documented by: Calcium Carbonate/Glycine (Tums) 1,000 mg PO Q72H PRN PRN Reason: Heartburn Diltiazem HCl (Cardizem Cd) 120 mg PO QAM [facility] Last Admin: 08/18/19 07:33 Dose: 120 mg Documented by: Gabapentin (Neurontin) 300 mg PO BID [facility] Last Admin: 08/18/19 20:09 Dose: 300 mg Documented by: Hydromorphone HCl (Dilaudid) 0.5 mg IVP Q4HR PRN PRN Reason: Pain Last Admin: 08/17/19 22:09 Dose: 0.5 mg Documented by: Hydromorphone HCl (Dilaudid) 1 mg IVP Q3HR PRN PRN Reason: Pain Last Admin: 08/18/19 17:39 Dose: 1 mg Documented by: Lactated Ringer's (Lactated Ringers) 1,000 mls @ 20 mls/hr IV .Q24H [facility] Last Admin: 08/18/19 02:32 Dose: Not Given Documented by: Sodium Chloride (Saline 0.9%) 1,000 mls @ 75 mls/hr IV .[id number] [facility] Last Admin: 08/18/19 19:25 Dose: Not Given Documented by: Levothyroxine Sodium (Synthroid) 50 mcg PO 0630 [facility] Last Admin: 08/18/19 04:31 Dose: 50 mcg Documented by: Lidocaine HCl (.Xylocaine 1% Inj (10mg/Ml) For Iv Start) 0.1 ml INTRADERMA PER PROTOCOL PRN PRN Reason: IV Start Loratadine (Claritin) 10 mg PO DAILY [facility] Last Admin: 08/18/19 07:32 Dose: 10 mg Documented by: Losartan Potassium (Cozaar) 50 mg PO HS [facility] Last Admin: 08/18/19 20:09 Dose: 50 mg Documented by: Magnesium Hydroxide (Milk Of Magnesia) 2,400 mg PO DAILY PRN PRN Reason: Constipation Magnesium Oxide (Mag-Ox) 400 mg PO DAILY [facility] Last Admin: 08/18/19 07:32 Dose: 400 mg Documented by: Metformin HCl (Glucophage) 500 mg PO DAILY [facility] Last Admin: 08/18/19 07:32 Dose: 500 mg Documented by: Multivitamins (Theragran) 1 each PO DAILY [facility] Last Admin: 08/18/19 07:32 Dose: 1 each Documented by: Nitroglycerin (Nitrostat) 0.4 mg SUBLINGUAL Q5M PRN PRN Reason: Chest Pain Myrbetriq ( (Mirabegron) 50 Mg) 50 mg PO DAILY [facility] Last Admin: 08/18/19 11:19 Dose: Not Given Documented by: Ondansetron HCl (Zofran) 4 mg IVP Q8HR PRN PRN Reason: Nausea Last Admin: 08/17/19 19:14 Dose: 4 mg Documented by: Pantoprazole Sodium (Protonix) 40 mg PO AC-BID [facility] Last Admin: 08/18/19 17:39 Dose: 40 mg Documented by: Pravastatin Sodium (Pravachol) 80 mg PO HS [facility] Last Admin: 08/18/19 20:09 Dose: 80 mg Documented by: Senna/Docusate Sodium (Senokot-S) 1 each PO DAILY [facility] Last Admin: 08/18/19 07:32 Dose: 1 each Documented by: Tramadol HCl (Ultram) 50 mg PO TID PRN PRN Reason: Pain Last Admin: 08/17/19 20:41 Dose: 50 mg Documented by: Objective - Vital Signs Vital signs: Vital Signs Temp 98.0 F 08/19/19 11:26 Pulse 99 08/19/19 11:26 Resp 18 08/19/19 11:26 BP 107/64 08/19/19 11:26 Pulse Ox 92 L 08/19/19 11:26 Intake & Output 08/18/19 08/19/19 08/19/19 18:59 06:59 18:59 Intake Total 180 262.5 Output Total 300 850 Balance -120 -587.5 Intake: Intake, IV Titration 262.5 Amount Sodium Chloride 0.9% 1, 262.5 000 ml @ 75 mls/hr IV . [id number] [facility] Rx#:[id number] Oral 180 Output: Urine 300 850 Straight 300 Other: Voiding Method Toilet Toilet Toilet - Exam PHYSICAL EXAMINATION: Patient is lying in the bed comfortably, no acute distress, awake alert and oriented.. HEENT: Normocephalic. Neck is supple. Pupils reactive. Nostrils clear. Oral cavity is moist. Ears reveal no drainage. Neck reveals no JVD, carotid bruits, or thyromegaly. CHEST EXAMINATION: Trachea is central. Symmetrical expansion. Bibasilar diminished air entry. Lung couch clear to auscultation and percussion. CARDIAC: Normal S1, S2 with no gallops. No murmurs ABDOMEN: Soft. Bowel sounds normal. No organomegaly. No abdominal bruits. Extremities: reveal no edema. No clubbing or cyanosis Neurologically awake, alert, oriented x3 with well-coordinated movements. No focal deficits noted Skin: No rash or skin lesions. Psychiatric: Coperative. Nonsuicidal Musculoskeletal: No joint swelling or deformity. Normal range of motion. - Labs CBC & Chem 7: 08/18/19 06:52 08/18/19 06:52 Labs: Abnormal Lab Results - Last 24 Hours (Table) 08/18/19 08/18/19 08/19/19 Range/Units 06:52 16:58 07:14 POC Glucose (mg/dL) 226 H 164 H (75-99) mg/dL Hemoglobin A1c 6.2 H (4.0-6.0) % 08/19/19 Range/Units 11:51 POC Glucose (mg/dL) 143 H (75-99) mg/dL Hemoglobin A1c (4.0-6.0) % Assessment and Plan Assessment: Status post Revision laminectomy and decompression L4 5 and Laminectomy and decompression L3 4 postoperative day 2 Urinary retention likely due to immobility and narcotic pain medications. Patient had straight catheterization 2. Resolved now. Mild leukocytosis likely due to postsurgical inflammatory reaction. Hypovolemic hyponatremia. Uncontrolled hypertension prior to surgery. Improved now Diabetes type 2 [id number] Hypertension. On Cardizem and losartan at home. Osteoarthritis Objective sleep apnea on CPAP at home Hypothyroidism COPD on home oxygen at 2.5 L at night Depression Previous history of smoking and morbid obesity with BMI 36.0 DVT prophylaxis Plan: Patient will be continued on pain management, bowel regimen and DVT prophylaxis as per primary team. Continue with incentive spirometry and encourage ambulation. Continue with home blood pressure medications in the form of Cardizem and losartan. Insulin sliding scale. Duonebs as needed and oxygen therapy. We will continue to follow with you and further recommendations based on the clinical course. Time with Patient: Greater than 30
--- NOTE | 2019-08-20 18:18 | P.PN ---
Subjective Progress Note Date: 08/20/19 Principal diagnosis: elective laminectomy and decompression of L4-L5 and L3-L4 Patient is a 69-year-old female with a known history of COPD on home oxygen as needed, chronic right diaphragmatic paralysis, hypertension, diabetes type 2, hyperlipidemia, obstructive sleep apnea on CPAP at home and hypothyroidism and other medical problems was into the hospital for elective laminectomy and decompression of L4-L5 and L3-L4 vertebrae. Currently patient is complaining of back pain. No fever no chills. No headache or dizziness or lightheadedness. No chest pain or shortness of breath. Patient's blood pressure was elevated prior to surgery. 08/18/2019 Patient denied any complaints of chest pain or shortness of breath. Back pain is better. Patient is currently able to sit on the side of the bed. Denied any complaints of nausea or vomiting. Patient does have urinary retention since morning and is considering straight catheterization now. Does have lower abdominal tenderness. No fever no chills. WBC 14.3 likely inflammatory reaction. 08/19/2019 Patient is currently able to sit on the side of the bed. Still complains of back pain but is improving slowly. patient didn't require straight catheterization twice last night. Patient is currently able to void spon taneously. Urinary retention has resolved now. Patient is able to participate in physical therapy. Otherwise patient is afebrile. Anticipate discharge home in next 24-48 hours. 08/20/2019 Patient says that her back pain is better today. Patient has been afebrile. Blood pressure is in normal range. Blood sugars are controlled as well. Able to void spontaneously. Patient is being continued on physical therapy. Patient did have bowel movement 2. Afebrile. No other acute overnight issues. Active Medications Hydrocodone Bitart/Acetaminophen ([place] 5-325) 1 each PO Q4HR PRN PRN Reason: Moderate Pain Hydrocodone Bitart/Acetaminophen ([place] 5-325) 2 each PO Q4HR PRN PRN Reason: Moderate Pain Last Admin: 08/18/19 19:29 Dose: 2 each Documented by: Albuterol Sulfate (Ventolin Nebulized) 2.5 mg INHALATION RT-Q6H PRN PRN Reason: Shortness Of Breath Baclofen (Lioresal) 10 mg PO TID PRN PRN Reason: Pain Benzocaine/Menthol (Cepacol Lozenge) 1 each MUCOUS MEM Q4HR PRN PRN Reason: Sore Throat Budesonide/Formoterol Fumarate (Symbicort 160-4.5 Mcg Inhaler) 2 puff INHALATION RT-BID [facility] Last Admin: 08/18/19 21:02 Dose: 2 puff Documented by: Calcium Carbonate/Glycine (Tums) 1,000 mg PO Q72H PRN PRN Reason: Heartburn Diltiazem HCl (Cardizem Cd) 120 mg PO QAM [facility] Last Admin: 08/18/19 07:33 Dose: 120 mg Documented by: Gabapentin (Neurontin) 300 mg PO BID [facility] Last Admin: 08/18/19 20:09 Dose: 300 mg Documented by: Hydromorphone HCl (Dilaudid) 0.5 mg IVP Q4HR PRN PRN Reason: Pain Last Admin: 08/17/19 22:09 Dose: 0.5 mg Documented by: Hydromorphone HCl (Dilaudid) 1 mg IVP Q3HR PRN PRN Reason: Pain Last Admin: 08/18/19 17:39 Dose: 1 mg Documented by: Lactated Ringer's (Lactated Ringers) 1,000 mls @ 20 mls/hr IV .Q24H [facility] Last Admin: 08/18/19 02:32 Dose: Not Given Documented by: Sodium Chloride (Saline 0.9%) 1,000 mls @ 75 mls/hr IV .[id number] [facility] Last Admin: 08/18/19 19:25 Dose: Not Given Documented by: Levothyroxine Sodium (Synthroid) 50 mcg PO 0630 [facility] Last Admin: 08/18/19 04:31 Dose: 50 mcg Documented by: Lidocaine HCl (.Xylocaine 1% Inj (10mg/Ml) For Iv Start) 0.1 ml INTRADERMA PER PROTOCOL PRN PRN Reason: IV Start Loratadine (Claritin) 10 mg PO DAILY [facility] Last Admin: 08/18/19 07:32 Dose: 10 mg Documented by: Losartan Potassium (Cozaar) 50 mg PO HS [facility] Last Admin: 08/18/19 20:09 Dose: 50 mg Documented by: Magnesium Hydroxide (Milk Of Magnesia) 2,400 mg PO DAILY PRN PRN Reason: Constipation Magnesium Oxide (Mag-Ox) 400 mg PO DAILY [facility] Last Admin: 08/18/19 07:32 Dose: 400 mg Documented by: Metformin HCl (Glucophage) 500 mg PO DAILY [facility] Last Admin: 08/18/19 07:32 Dose: 500 mg Documented by: Multivitamins (Theragran) 1 each PO DAILY [facility] Last Admin: 08/18/19 07:32 Dose: 1 each Documented by: Nitroglycerin (Nitrostat) 0.4 mg SUBLINGUAL Q5M PRN PRN Reason: Chest Pain Myrbetriq ( (Mirabegron) 50 Mg) 50 mg PO DAILY [facility] Last Admin: 08/18/19 11:19 Dose: Not Given Documented by: Ondansetron HCl (Zofran) 4 mg IVP Q8HR PRN PRN Reason: Nausea Last Admin: 08/17/19 19:14 Dose: 4 mg Documented by: Pantoprazole Sodium (Protonix) 40 mg PO AC-BID [facility] Last Admin: 08/18/19 17:39 Dose: 40 mg Documented by: Pravastatin Sodium (Pravachol) 80 mg PO HS [facility] Last Admin: 08/18/19 20:09 Dose: 80 mg Documented by: Senna/Docusate Sodium (Senokot-S) 1 each PO DAILY [facility] Last Admin: 08/18/19 07:32 Dose: 1 each Documented by: Tramadol HCl (Ultram) 50 mg PO TID PRN PRN Reason: Pain Last Admin: 08/17/19 20:41 Dose: 50 mg Documented by: Objective - Vital Signs Vital signs: Vital Signs Temp 98.2 F 08/20/19 15:00 Pulse 86 08/20/19 15:00 Resp 16 08/20/19 15:00 BP 132/78 08/20/19 15:00 Pulse Ox 97 08/20/19 15:00 Intake & Output 08/19/19 08/20/19 08/20/19 18:59 06:59 18:59 Intake Total 1030 Balance 1030 Intake: Intake, IV Titration 750 Amount Sodium Chloride 0.9% 1, 750 000 ml @ 75 mls/hr IV . [id number] [facility] Rx#:[id number] Oral 280 Other: Voiding Method Toilet Toilet # Voids 2 2 2 # Bowel Movements 1 - Exam PHYSICAL EXAMINATION: Patient is lying in the bed comfortably, no acute distress, awake alert and oriented.. HEENT: Normocephalic. Neck is supple. Pupils reactive. Nostrils clear. Oral cavity is moist. Ears reveal no drainage. Neck reveals no JVD, carotid bruits, or thyromegaly. CHEST EXAMINATION: Trachea is central. Symmetrical expansion. Bibasilar diminished air entry. Lung couch clear to auscultation and percussion. CARDIAC: Normal S1, S2 with no gallops. No murmurs ABDOMEN: Soft. Bowel sounds normal. No organomegaly. No abdominal bruits. Extremities: reveal no edema. No clubbing or cyanosis Neurologically awake, alert, oriented x3 with well-coordinated movements. No focal deficits noted Skin: No rash or skin lesions. Psychiatric: Coperative. Nonsuicidal Musculoskeletal: No joint swelling or deformity. Normal range of motion. - Labs CBC & Chem 7: 08/18/19 06:52 08/18/19 06:52 Labs: Abnormal Lab Results - Last 24 Hours (Table) 08/19/19 08/20/19 08/20/19 Range/Units 20:09 06:41 11:41 POC Glucose (mg/dL) 191 H 138 H 168 H (75-99) mg/dL 08/20/19 Range/Units 16:59 POC Glucose (mg/dL) 154 H (75-99) mg/dL Assessment and Plan Assessment: Status post Revision laminectomy and decompression L4 5 and Laminectomy and decompression L3 4 postoperative day 3 Urinary retention likely due to immobility and narcotic pain medications. Patient had straight catheterization 2. Resolved now. Mild leukocytosis likely due to postsurgical inflammatory reaction. Hypovolemic hyponatremia. Uncontrolled hypertension prior to surgery. Improved now Diabetes type 2 new-phmppzs-nyeniprqs Hypertension. On Cardizem and losartan at home. Osteoarthritis Objective sleep apnea on CPAP at home Hypothyroidism COPD on home oxygen at 2.5 L at night Depression Previous history of smoking and morbid obesity with BMI 36.0 DVT prophylaxis Plan: Patient will be continued on pain management, bowel regimen and DVT prophylaxis as per primary team. Continue with incentive spirometry and encourage ambulation. Continue with home blood pressure medications in the form of Cardizem and losartan. Insulin sliding scale. Duonebs as needed and oxygen therapy. We will continue to follow with you and further recommendations based on the clinical course. Time with Patient: Greater than 30
[2019-08-20] MEDS: PRAVASTATIN SODIUM 80 MG TAB PO SCH (20:18)
[2019-08-20] MEDS: LOSARTAN 50 MG TAB PO SCH (20:18)
[2019-08-20 20:20] LABS: Glucose,Whole Blood 157 mg/dL (75-99)
[2019-08-21] MEDS: HYDROcodone/APAP 5-325MG 1 EACH TAB PO PRN ×4 (00:37→13:16)
[2019-08-21] MEDS: LACTATED RINGERS 1,000 ML IV SCH (03:04)
[2019-08-21] MEDS: SODIUM CHLORIDE 0.9% 1,000 ML IV SCH (06:08)
[2019-08-21] MEDS: LEVOTHYROXINE 50 MCG TAB PO SCH (06:09)
[2019-08-21 06:49] LABS: Glucose,Whole Blood 138 mg/dL (75-99)
[2019-08-21 07:22] VITALS: BP 150/77; PULSE 78; RESP 16; TEMP 98.3
[2019-08-21] MEDS: MULTIVITAMINS, THERA 1 EACH TAB PO SCH (09:27)
[2019-08-21] MEDS: PANTOPRAZOLE 40 MG TABLET PO SCH (09:27)
[2019-08-21] MEDS: metFORMIN 500 MG TAB PO SCH (09:27)
[2019-08-21] MEDS: DILTIAZEM CD 120 MG CAP.ER.24H PO SCH (09:28)
[2019-08-21] MEDS: MAGNESIUM OXIDE 400 MG TAB PO SCH (09:28)
[2019-08-21] MEDS: GABAPENTIN 300 MG CAP PO SCH (09:28)
[2019-08-21] MEDS: LORATADINE 10 MG TAB PO SCH (09:28)
[2019-08-21] MEDS: SYMBICORT 160-4.5 MCG INHALER INHALATION SCH (09:52)
--- NOTE | 2019-08-21 10:29 | P.DS ---
Providers Date of admission: 08/17/19 06:32 Attending physician: Elizabeth Joseph Consults: 08/17/19 11:12 Consult Physician Routine Consulting Provider: Raquel Connell Consult Reason/Comments: Medical management Do you want consulting provider notified?: Yes Primary care physician: Neeta Jeff [facility] Course: The patient presented on the day of admission as per their operative note. She had spondylolisthesis with spinal stenosis and lower extremity radiculopathy which have been chronic for her and worsening over time. Despite conservative treatment she was not having any prolonged benefits and after long discussions and determining possible outcomes the patient decided to proceed with surgical intervention and underwent her decompression and fusion as per her operative note. Postoperatively she feels her legs are doing well. She still has pain at her lower back as expected and has occasional pain at the posterior left thigh. She has been able to mobilize and ambulate and get in and out of bed on her own. She uses her walker and has been able to have good in relation and has had a bowel movement and is tolerating a regular diet. She is doing well with oral medications. Physical Exam The incision site is clean dry and intact. There is no erythema no drainage. There is no purulence no evidence of infection. There is no active drainage. Abdomen soft and nontender. Chest has good excursion with deep inspiration and expiration. The patient has active and passive range of motion intact at the upper and lower extremities. There is no acute change in neurologic status. She has sustained dorsal flexion plantar flexion and EHL intact. Her thighs and calves soft nontender with no evidence of any clots. Hospital Course Postoperative day #4 status post minimally invasive decompression and fusion for her spinal stenosis with lower extremity radiculopathy and spondylolisthesis. The patient has been making good progress postoperatively. They have completed the prophylactic antibiotics without any signs or symptoms of infection. The patient has been able to advance their diet, and is tolerating diet adequately. The pain was initially controlled with IV medications and is now controlled appropriately with oral medications. The patient has been able to increase their mobilization. The patient has progressed appropriately. I think they are in good stable condition for discharge today. They will be sent home with appropriate prescriptions. I answered their questions to the best of my ability in a language that they can understand and they are agreeable with the plan. They will follow up as directed in approximately 2 weeks or sooner if she is having any problems. Patient Condition at Discharge: Good Plan - Discharge Summary Discharge Rx Participant: Yes New Discharge Prescriptions: New HYDROcodone/APAP 7.5-325MG [[place] 7.5-325] 1 - 2 each PO Q6HR PRN #56 tab PRN Reason: Pain No Action Levothyroxine Sodium [Synthroid] 50 mcg PO DAILY Budesonide/Formoterol Fumarate [Symbicort 160-4.5 Mcg Inhaler] 2 puff INH ALATION RT-BID Omeprazole [PriLOSEC] 20 mg PO AC-BRKFST Pravastatin Sodium 80 mg PO HS Gabapentin [Neurontin] 300 mg PO BID metFORMIN HCL [Glucophage] 500 mg PO DAILY Magnesium Oxide [Mag-Ox] 400 mg PO DAILY #3 tab Nitroglycerin Sl Tabs [Nitrostat] 0.4 mg SUBLINGUAL Q5M PRN #20 tab PRN Reason: Chest Pain Losartan Potassium 50 mg PO HS Baclofen 10 mg PO TID PRN PRN Reason: Pain Diltiazem HCl [Diltiazem 12Hr ER] 120 mg PO QAM Mirabegron [Myrbetriq] 50 mg PO DAILY Cetirizine HCl 10 mg PO DAILY Celecoxib [CeleBREX] 200 mg PO DAILY traMADol HCl [Ultram] 50 mg PO TID PRN PRN Reason: Pain Multivitamins, Thera [Multivitamin (formulary)] 1 tab PO DAILY Calcium Carbonate 1,000 mg PO Q72H PRN PRN Reason: Heartburn Nitrofurantoin Monohyd/M-Cryst [Macrobid] 100 mg PO Q12HR Albuterol Sulfate [Proair Hfa] 1 - 2 puff INHALATION Q6HR PRN PRN Reason: Shortness Of Breath Discharge Medication List Levothyroxine Sodium [Synthroid] 50 mcg PO DAILY 06/23/14 [History] Budesonide/Formoterol Fumarate [Symbicort 160-4.5 Mcg Inhaler] 2 puff INHALATION RT-BID 10/14/16 [History] Gabapentin [Neurontin] 300 mg PO BID 10/30/17 [History] Omeprazole [PriLOSEC] 20 mg PO AC-BRKFST 10/30/17 [History] Pravastatin Sodium 80 mg PO HS 10/30/17 [History] metFORMIN HCL [Glucophage] 500 mg PO DAILY 01/27/18 [History] Magnesium Oxide [Mag-Ox] 400 mg PO DAILY #3 tab 02/07/19 [Rx] Nitroglycerin Sl Tabs [Nitrostat] 0.4 mg SUBLINGUAL Q5M PRN #20 tab 02/07/19 [Rx] Albuterol Sulfate [Proair Hfa] 1 - 2 puff INHALATION Q6HR PRN 08/15/19 [History] Baclofen 10 mg PO TID PRN 08/15/19 [History] Calcium Carbonate 1,000 mg PO Q72H PRN 08/15/19 [History] Celecoxib [CeleBREX] 200 mg PO DAILY 08/15/19 [History] Cetirizine HCl 10 mg PO DAILY 08/15/19 [History] Diltiazem HCl [Diltiazem 12Hr ER] 120 mg PO QAM 08/15/19 [History] Losartan Potassium 50 mg PO HS 08/15/19 [History] Mirabegron [Myrbetriq] 50 mg PO DAILY 08/15/19 [History] Multivitamins, Thera [Multivitamin (formulary)] 1 tab PO DAILY 08/15/19 [History] Nitrofurantoin Monohyd/M-Cryst [Macrobid] 100 mg PO Q12HR 08/15/19 [History] traMADol HCl [Ultram] 50 mg PO TID PRN 08/15/19 [History] HYDROcodone/APAP 7.5-325MG [[place] 7.5-325] 1 - 2 each PO Q6HR PRN #56 tab 08/19/19 [Rx] Follow up Appointment(s)/Referral(s): Gio Alamo, JODEE [PHYSICIAN DROP CLIPPER] - 2 Weeks (Patient may follow-up with Gio Alamo PA-C or Dr. Ranjit Joseph at [facility] in 2-3 weeks following discharge. ) [facility], [NON-STAFF] - As Needed Activity/Diet/Wound Care/Special Instructions: 1. Patient may shower with silver and Tegaderm dressing intact. 2. Patient may remove silver and Tegaderm dressing on Thursday, August 22 and shower without a dressing at that time. 3. Patient may use a walker to aid in ambulation as needed following discharge 4. Patient may use a toilet seat riser as needed following discharge 5. Patient should refrain from driving until at least after their first follow- up appointment in the office. 6. Patient should avoid excessive bending, twisting, and lifting; no lifting greater than 10 pounds 7. Take medications as prescribed; patient should avoid anti-inflammatories over the next 6 weeks postoperatively; patient should discontinue taking tramadol while taking [place] 7.5 mg/325 mg 8. Do not soak in tub 9. Patient is okay to leave the house and to ambulate to her tolerance. Discharge Disposition: HOME SELF-CARE
[2019-08-21 12:12] LABS: Glucose,Whole Blood 164 mg/dL (75-99)
[2019-08-21] MEDS: MYRBETRIQ (Mirabegron) 50 MG PO SCH (13:15)
== END 2019-08-21 14:04 | disposition home health service (06) | DRG 454 ==
LOC: 2ORMAIN 06:32 → 4SSUR 11:25
PROVIDERS: ADMIT Orthopaedic Surgery Orthopaedic Surgery of the Spine; ATTEND Orthopaedic Surgery Orthopaedic Surgery of the Spine
PROC: 0SG1071 Fusion of 2 or more Lumbar Vertebral Joints with Autologous Tissue Substitute, Posterior Approach, Posterior Column, Open Approach (ICD-10-PCS; 2019-08-17)
PROC: 0ST20ZZ Resection of Lumbar Vertebral Disc, Open Approach (ICD-10-PCS; 2019-08-17)
PROC: 01NB3ZZ Release Lumbar Nerve, Percutaneous Approach (ICD-10-PCS; 2019-08-17)
PROC: 4A11X4G Monitoring of Peripheral Nervous Electrical Activity, Intraoperative, External Approach (ICD-10-PCS; 2019-08-17)
PROC: 0SG10AJ Fusion of 2 or more Lumbar Vertebral Joints with Interbody Fusion Device, Posterior Approach, Anterior Column, Open Approach (ICD-10-PCS; principal; 2019-08-17 07:30)
DX: M43.16 Spondylolisthesis, lumbar region (principal); E87.1 Hypo-osmolality and hyponatremia; J44.9 Chronic obstructive pulmonary disease, unspecified; J98.6 Disorders of diaphragm; E66.01 Morbid (severe) obesity due to excess calories; E11.9 Type 2 diabetes mellitus without complications; D72.829 Elevated white blood cell count, unspecified; N30.10 Interstitial cystitis (chronic) without hematuria; M48.061 Spinal stenosis, lumbar region without neurogenic claudication; M51.16 Intervertebral disc disorders with radiculopathy, lumbar region; I10 Essential (primary) hypertension; E86.1 Hypovolemia; K76.9 Liver disease, unspecified; F32.9 Major depressive disorder, single episode, unspecified; R33.0 Drug induced retention of urine; T40.605A Adverse effect of unspecified narcotics, initial encounter; E78.5 Hyperlipidemia, unspecified; G47.33 Obstructive sleep apnea (adult) (pediatric); Z99.81 Dependence on supplemental oxygen; E03.9 Hypothyroidism, unspecified; K59.00 Constipation, unspecified; K21.9 Gastro-esophageal reflux disease without esophagitis; K46.9 Unspecified abdominal hernia without obstruction or gangrene; Z68.36 Body mass index [BMI] 36.0-36.9, adult; M19.90 Unspecified osteoarthritis, unspecified site; Z79.51 Long term (current) use of inhaled steroids; Z79.1 Long term (current) use of non-steroidal anti-inflammatories (NSAID); Z79.890 Hormone replacement therapy; Z79.84 Long term (current) use of oral hypoglycemic drugs; Z79.899 Other long term (current) drug therapy; Z98.890 Other specified postprocedural states; Z90.710 Acquired absence of both cervix and uterus; Z87.891 Personal history of nicotine dependence; Z88.1 Allergy status to other antibiotic agents; Z99.89 Dependence on other enabling machines and devices; Z88.8 Allergy status to other drugs, medicaments and biological substances; Z91.048 Other nonmedicinal substance allergy status; Z83.2 Family history of diseases of the blood and blood-forming organs and certain disorders involving the immune mechanism; Z82.49 Family history of ischemic heart disease and other diseases of the circulatory system; Z83.3 Family history of diabetes mellitus; Y92.230 Patient room in hospital as the place of occurrence of the external cause
CPT/HCPCS: 72100; 80048; 81001; 83036; 85025; 86850; 86891; 86900; 86901; 94640

== ENCOUNTER → 2020-03-16 | Outpatient (CLI) | payer MEDICARE ==
--- NOTE | 2020-03-20 11:50 | MM ---
Reason for exam: screening (asymptomatic). Last mammogram was performed 1 year and 3 months ago. History: Patient is postmenopausal. Took estrogen for 3 years beginning at age 42. Physical Findings: A clinical breast exam by your physician is recommended on an annual basis and results should be correlated with mammographic findings. MG 3D Screening Mammo W/Cad Bilateral CC and MLO view(s) were taken. Prior study comparison: December 15, 2018, bilateral MG 3d screening mammo w/cad. September 21, 2017, bilateral MG 3d screening mammo w/cad. The breast tissue is heterogeneously dense. This may lower the sensitivity of mammography. Benign vascular calcifications. No significant changes when compared with prior studies. ASSESSMENT: Benign, BI-RAD 2 RECOMMENDATION: Routine screening mammogram of both breasts in 1 year.
== END | disposition home or self-care (01) ==
LOC: RADMAMWWP 08:18
PROVIDERS: ATTEND Family Medicine
DX: Z12.31 Encounter for screening mammogram for malignant neoplasm of breast (principal)
CPT/HCPCS: 77063; 77067

== ENCOUNTER → 2020-03-30 | Outpatient (CLI) | payer MEDICARE | END | disposition home or self-care (01) | LOC: LABPAT 08:46 | PROVIDERS: ATTEND Surgery | DX: Z01.818 Encounter for other preprocedural examination (principal); K43.2 Incisional hernia without obstruction or gangrene | CPT/HCPCS: 93005 ==

== ENCOUNTER → 2020-04-16 | Outpatient (CLI) | payer MEDICARE | END | disposition home or self-care (01) | LOC: LABPAT 09:14 | PROVIDERS: ATTEND Surgery | DX: Z53.9 Procedure and treatment not carried out, unspecified reason (principal) ==

== ENCOUNTER 2020-04-20 08:19 | Day surgery (SDC) | payer MEDICARE ==
[2020-04-18 16:11] VITALS: BMI 29.2
[~2020-04-20 08:19] MED LIST changes: +ACETAMINOPHEN TAB 500 MG TAB PO ONE; -BACITRACIN 50,000 UNIT, POLYMYXIN B 500,000 UNIT in SODIUM CHLORIDE 0.9% IRRIGATIO 1,00... IRRIGATION ONE; -CLINDAMYCIN 900 MG in DEXTROSE 5% IN WATER 50 ML IVPB ONE; +HEPARIN SODIUM,PORCINE 5,000 UNIT/ML 1 ML VIAL SQ ONE; +LACTATED RINGERS 1,000 ML IV SCH; +LIDOCAINE 1% (10MG/ML) FOR IV START INTRADERMA PRN; -LIDOCAINE 1% 20 ML VIAL (10MG/ML) FOR IV START INTRADERMA PRN; -MIDAZOLAM 2 MG/2 ML VIAL IV PRN; +ONDANSETRON 4 MG/2 ML VIAL IVP ONE; +ONDANSETRON 4 MG/2 ML VIAL IVP PRN; -SCOPOLAMINE 1.5MG/72HR PATCH TRANSDERM ONE
[2020-04-20 09:07] VITALS: RESP 16
[2020-04-20 09:30] LABS: Glucose,Whole Blood 119 mg/dL (75-99)
[2020-04-20] MEDS ORDERED: ACETAMINOPHEN TAB 500 MG TAB ONE (09:38)
[2020-04-20] MEDS ORDERED: ONDANSETRON 4 MG/2 ML VIAL ONE (09:38)
[2020-04-20] MEDS ORDERED: HEPARIN SODIUM,PORCINE 5,000 UNIT/ML 1 ML VIAL ONE (09:38)
--- NOTE | 2020-04-20 09:57 | P.GSHP ---
History of Present Illness H&P Date: 04/20/20 Chief Complaint: Recurrent incisional hernia 62-year-old female seen in February of this year. Patient with complaints of a bulge at the site of a previous hernia repair. She thinks this was repaired 2 separate times and believes mesh was utilized at least one time. Mild pain at times. Some early satiety. Patient with history of chronic right diaphragm paralysis. Past Medical History Past Medical History: COPD, Diabetes Mellitus, GERD/Reflux, Hyperlipidemia, Hypertension, Osteoarthritis (OA), Rheumatoid Arthritis (RA), Sleep Apnea/CPAP/BIPAP, Thyroid Disorder Additional Past Medical History / Comment(s): USES O2 @2.5 L AT NIGHT FOR SLEEP APNEA History of Any Multi-Drug Resistant Organisms: None Reported Past Surgical History: Back Surgery, Bladder Surgery, Hernia Repair, Hysterectomy, Orthopedic Surgery, Tonsillectomy Additional Past Surgical History / Comment(s): THORACOTOMY X2 FOR A PARALYZED DIAPHRAGM, rt bunionectomy, Past Anesthesia/Blood Transfusion Reactions: No Reported Reaction Additional Past Anesthesia/Blood Transfusion Reaction / Comment(s): "I can not lay on my back flat-can't breath" Smoking Status: Former smoker - Past Family History Mother Family Medical History: Deep Vein Thrombosis (DVT) Additional Family Medical History / Comment(s): . Father Family Medical History: Coronary Artery Disease (CAD), Diabetes Mellitus Additional Family Medical History / Comment(s): TRIPLE BYPASS, [employer]PART[employer] REPLACMENT,PACEMAKER Sister(s) Family Medical History: Cancer Additional Family Medical History / Comment(s): lung cancer Medications and Allergies Home Medications Medication Instructions Recorded Confirmed Type Levothyroxine Sodium [Synthroid] 50 mcg PO DAILY 06/23/14 04/20/20 History Budesonide/Formoterol Fumarate 2 puff INHALATION RT-BID 10/14/16 04/20/20 History [Symbicort 160-4.5 Mcg Inhaler] Gabapentin [Neurontin] 600 mg PO BID 10/30/17 04/20/20 History Omeprazole [PriLOSEC] 20 mg PO AC-BRKFST 10/30/17 04/20/20 History Pravastatin Sodium 80 mg PO HS 10/30/17 04/20/20 History metFORMIN HCL [Glucophage] 500 mg PO DAILY 01/27/18 04/20/20 History Albuterol Sulfate [Proair Hfa] 1 - 2 puff INHALATION Q6HR PRN 08/15/19 04/20/20 History Baclofen 10 mg PO TID PRN 08/15/19 04/20/20 History Celecoxib [CeleBREX] 200 mg PO DAILY 08/15/19 04/20/20 History Cetirizine HCl 10 mg PO DAILY 08/15/19 04/20/20 History Diltiazem HCl [Diltiazem 12Hr ER] 120 mg PO QAM 08/15/19 04/20/20 History Losartan Potassium 50 mg PO HS 08/15/19 04/20/20 History Mirabegron [Myrbetriq] 50 mg PO DAILY 08/15/19 04/20/20 History Multivitamins, Thera [Multivitamin 1 tab PO DAILY 08/15/19 04/20/20 History (formulary)] traMADol HCl [Ultram] 50 mg PO TID PRN 08/15/19 04/20/20 History Magnesium Oxide [Mag-Ox] 500 mg PO DAILY 04/18/20 04/20/20 History Potassium Gluconate 99 mg PO DAILY 04/18/20 04/20/20 History Allergies Allergy/AdvReac Type Severity Reaction Status Date / Time cephalexin monohydrate Allergy Rash/Hives Verified 04/20/20 09:02 [From Keflex] lisinopril Allergy Cough Verified 04/20/20 09:02 dust,tree,grass,bennett,cat,horse Allergy Unknown Uncoded 04/20/20 09:02 Surgical - Exam Vital Signs Temp Pulse Resp BP Pulse Ox 97.88 F 77 16 135/64 93 L 04/20/20 09:05 04/20/20 09:05 04/20/20 09:05 04/20/20 09:05 04/20/20 09:05 Physical exam: General: Well-developed, well-nourished HEENT: Normocephalic, sclerae nonicteric Abdomen: Nontender, nondistended, reducible hernia along scar site, in the supraumbilical location Extremities: No edema Neuro: Alert and oriented Results - Labs Abnormal Lab Results - Last 24 Hours (Table) 04/20/20 Range/Units 09:15 POC Glucose (mg/dL) 119 H (75-99) mg/dL Assessment and Plan (1) Recurrent incisional hernia Narrative/Plan: Will proceed with operative repair with mesh. Risks of bleeding, infection, recurrence, bladder and bowel injury, numbness, nerve injury were discussed with the patient. The patient understands and wishes to proceed. Current Visit: Yes Status: Acute Code(s): K43.2 - INCISIONAL HERNIA WITHOUT OBSTRUCTION OR GANGRENE SNOMED Code(s): 505146813
[2020-04-20] MEDS ORDERED: MIDAZOLAM 2 MG/2 ML VIAL ONE (10:18)
[2020-04-20] MEDS ORDERED: SUCCINYLCHOLINE CHLORIDE 100 MG/5 ML SYR IV ONE (10:18)
[2020-04-20] MEDS ORDERED: PHENYLEPHRINE-0.9% NACL SYG 1 MG/10 ML SYRINGE ONE (10:18)
[2020-04-20] MEDS ORDERED: GLYCOPYRROLATE 0.2 MG/ML 2 ML VIAL ONE (10:18)
[2020-04-20] MEDS ORDERED: fentaNYL (PF) 50 MCG/ML 2 ML AMP ONE (10:18)
[2020-04-20] MEDS ORDERED: LIDOCAINE 1% INJ 10MG/ML (20 ML MDV) ONE (10:18)
[2020-04-20] MEDS ORDERED: PROPOFOL 10 MG/ML 20 ML VIAL IV ONE (10:18)
[2020-04-20] MEDS ORDERED: ROCURONIUM BROMIDE 10 MG/ML 5 ML VIAL IV ONE (10:18)
[2020-04-20] MEDS ORDERED: NEOSTIGMINE 1 MG/ML 10 ML VIAL ONE (10:18)
[2020-04-20] MEDS ORDERED: SODIUM CHLORIDE 0.9% 100 ML with CLINDAMYCIN 600 MG IV ONE ×2 (10:30)
[2020-04-20] MEDS ORDERED: BUPIVACAIN-EPI 0.25%-1:200,000 30 ML VIAL SQ ONE ×2 (10:38→11:17)
[2020-04-20] MEDS ORDERED: LACTATED RINGERS 1,000 ML IV ONE (11:09)
[2020-04-20] MEDS ORDERED: HYDROcodone/APAP 5-325MG 1 EACH TAB PO PRN (11:39)
[2020-04-20] MEDS ORDERED: NALOXONE 0.4 MG/ML 1 ML VIAL IV PRN (11:39)
[2020-04-20 11:43] VITALS: TEMP 97.8
--- NOTE | 2020-04-20 11:43 | P.OP ---
Date of Procedure: 04/20/20 Procedure(s) Performed: PREOPERATIVE DIAGNOSIS: Recurrent incisional hernia POSTOPERATIVE DIAGNOSIS: Same PROCEDURE: Repair recurrent incisional hernia with mesh SURGEON: Meka EBL: Minimal ANESTHESIA: Gen. COMPLICATIONS: None OPERATIVE PROCEDURE: Patient placed on the operating table in the supine position. Abdomen was prepped and draped in usual sterile fashion. The previous incision was re-incised superiorly. Dissection through the subcutaneous tissues took place using electrocautery. A moderate sized hernia was identified. The hernia sac was carefully dissected down to the level of the fascia where it was excised. The patient had a single defect measuring 3.5 x 2.5 cm. The hernia sac was excised. The omentum was reduced back into the abdominal cavity. The adhesions to the fascia were dissected. The patient had evidence of mesh superior to the defect site. This did not require any debridement or excision. A 6.4 cm ventral ex mesh was then placed beneath the fascia and sutured to the fascia using interrupted 0 Ethibond trans-fascial sutures. The defect was then closed horizontally using overlapping vest over pants 0 Ethibond sutures. The folding edge was tacked down using interrupted 0 Ethibond sutures as well. The subcutaneous tissues were closed using 3-0 Vicryl sutures. The skin was closed using kay. Sterile dressings were applied. DISPOSITION: Stable to recovery room
[2020-04-20] MEDS: HYDROmorphone 0.5 MG/0.5 ML SYRINGE IVP PRN ×2 (11:46→12:03)
[2020-04-20 12:45] VITALS: BP 153/73; PULSE 73
== END 2020-04-20 12:57 | disposition home or self-care (01) ==
LOC: OR 08:19
PROVIDERS: ATTEND Surgery
DX: K43.2 Incisional hernia without obstruction or gangrene (principal); I10 Essential (primary) hypertension; J44.9 Chronic obstructive pulmonary disease, unspecified; E11.9 Type 2 diabetes mellitus without complications; E78.5 Hyperlipidemia, unspecified; K21.9 Gastro-esophageal reflux disease without esophagitis; M06.9 Rheumatoid arthritis, unspecified; J98.6 Disorders of diaphragm; E07.9 Disorder of thyroid, unspecified; G47.33 Obstructive sleep apnea (adult) (pediatric); Z99.81 Dependence on supplemental oxygen; Z90.710 Acquired absence of both cervix and uterus; Z90.89 Acquired absence of other organs; Z98.890 Other specified postprocedural states; Z87.891 Personal history of nicotine dependence; Z82.49 Family history of ischemic heart disease and other diseases of the circulatory system; Z83.3 Family history of diabetes mellitus; Z80.1 Family history of malignant neoplasm of trachea, bronchus and lung; Z79.890 Hormone replacement therapy; Z79.51 Long term (current) use of inhaled steroids; Z79.84 Long term (current) use of oral hypoglycemic drugs; Z79.899 Other long term (current) drug therapy; Z88.1 Allergy status to other antibiotic agents; Z88.8 Allergy status to other drugs, medicaments and biological substances; Z91.09 Other allergy status, other than to drugs and biological substances; Z98.1 Arthrodesis status
CPT/HCPCS: 88302; 49565; 49568; C1781; J2250; J1644; J1100; J2710; J2405; J2001; J3010; J2370; J0330; J2704; J1170

== ENCOUNTER → 2020-07-24 | Outpatient (CLI) | payer MEDICARE ==
[2020-07-24 10:12] LABS: African American GFR (CKD) >90 (>60 ml/min/1.73 sqM); Blood Urea Nitrogen 22 mg/dL (7-17); Non-African American GFR(CKD) >90 (>60 ml/min/1.73 sqM)
--- NOTE | 2020-07-24 10:38 | CT ---
EXAMINATION TYPE: CT angio chest DATE OF EXAM: 07/24/2020 COMPARISON: CT chest July 20, 2013 HISTORY: SOB CT DLP: 264 mGycm. Automated Exposure Control for Dose Reduction was Utilized. CONTRAST: CTA scan of the thorax is performed with IV Contrast, patient injected with 100 mL of Isovue 370, pul monary embolism protocol. MIP Images are created on CT scanner and reviewed. FINDINGS: LUNGS: There is eventration anterior aspect right hemidiaphragm redemonstrated. There is linear scarr ing anteriorly right upper lung redemonstrated. Patchy anterior mild right basilar linear scarring an d/or atelectasis mild focal linear scarring left lung base just above diaphragm. No suspicious new fo garrett consolidation or pleural effusion. No concerning masses. Focal curvilinear density or calcificati ons along the right hemidiaphragm posteriorly redemonstrated MEDIASTINUM: There is slightly suboptimal study with near equal contrast bright left heart systems bu t no convincing CT evidence for acute pulmonary embolism. There are no greater than 1 cm hilar or me diastinal lymph nodes. No cardiomegaly or pericardial effusion is seen. Moderate coronary artery ca lcification is present. Satisfactory enhancement of the aorta without aneurysm or dissection. OTHER: Mild to moderate generalized fat replaced atrophy visualized pancreas.. IMPRESSION: No CT evidence for acute pulmonary embolism. No suspicious new acute pulmonary process. C hronic changes redemonstrated.
== END | disposition home or self-care (01) ==
LOC: RADCTMAIN 09:36
PROVIDERS: ATTEND Internal Medicine
DX: R06.09 Other forms of dyspnea (principal); Z88.1 Allergy status to other antibiotic agents; Z88.8 Allergy status to other drugs, medicaments and biological substances
CPT/HCPCS: 82565; 84520; 71275; 36415; Q9967

== ENCOUNTER → 2021-07-31 | Outpatient (CLI) | payer MEDICARE ==
--- NOTE | 2021-08-01 11:38 | MM ---
Reason for exam: screening (asymptomatic). Last mammogram was performed 1 year and 4 months ago. History: Patient is postmenopausal. Took estrogen for 3 years beginning at age 42. Physical Findings: A clinical breast exam by your physician is recommended on an annual basis and results should be correlated with mammographic findings. MG 3D Screening Mammo W/Cad Bilateral CC and MLO view(s) were taken. Prior study comparison: March 16, 2020, bilateral MG 3d screening mammo w/cad. December 15, 2018, bilateral MG 3d screening mammo w/cad. The breast tissue is heterogeneously dense. This may lower the sensitivity of mammography. Stable benign calcifications. There is no discrete abnormality. No significant changes when compared with prior studies. ASSESSMENT: Benign, BI-RAD 2 RECOMMENDATION: Routine screening mammogram of both breasts in 1 year.
== END | disposition home or self-care (01) ==
LOC: RADMAMWWP 07:50
PROVIDERS: ATTEND Family Medicine
DX: Z12.31 Encounter for screening mammogram for malignant neoplasm of breast (principal); Z78.0 Asymptomatic menopausal state
CPT/HCPCS: 77063; 77067

== ENCOUNTER 2021-11-27 06:13 | Day surgery (SDC) | payer MEDICARE ==
[2021-11-25 10:27] VITALS: BMI 30.2
[~2021-11-27 06:13] MED LIST changes: -ACETAMINOPHEN TAB 500 MG TAB PO ONE; -DEXAMETHASONE SOD PHOSPHATE 10 MG/ML 1 ML VIAL IV ONE; -HEPARIN SODIUM,PORCINE 5,000 UNIT/ML 1 ML VIAL SQ ONE; -LACTATED RINGERS 1,000 ML IV SCH; -ONDANSETRON 4 MG/2 ML VIAL IVP ONE; -ONDANSETRON 4 MG/2 ML VIAL IVP PRN
[2021-11-27] MEDS: LACTATED RINGERS 1,000 ML IV SCH ×2 (07:05→07:07)
[2021-11-27 07:07] VITALS: TEMP 98.2
[2021-11-27 07:07] LABS: Glucose,Whole Blood 100 mg/dL (75-99)
[2021-11-27] MEDS ORDERED: PROPOFOL 10 MG/ML 20 ML VIAL IV ONE (07:08)
[2021-11-27] MEDS ORDERED: LIDOCAINE 1% INJ 10MG/ML (20 ML MDV) ONE (07:08)
--- NOTE | 2021-11-27 07:22 | P.PCN ---
Date of Procedure: 11/27/21 Procedure(s) Performed: BRIEF HISTORY: Patient is a 71-year-old pleasant female scheduled for an elective colonoscopy as a part of evaluation of prior history of colon polyps. Last colonoscopy was 5 years ago. PROCEDURE PERFORMED: Colonoscopy with biopsy. PREOPERATIVE DIAGNOSIS: History of colon polyps. IV sedation per Anesthesia. PROCEDURE: After informed consent was obtained, the patient, was brought into the endoscopy unit. IV sedation was administered by Anesthesia under continuous monitoring. Digital rectal examination was normal. Initially the Olympus CF-160 flexible video colonoscope was then inserted in the rectum, gradually advanced into the cecum without any difficulty. Careful examination was performed as the scope was gradually being withdrawn. Ileocecal valve and the appendiceal orifice were visualized and appeared normal. Prep was excellent. Mucosa of the cecum, ascending colon, transverse colon, normal. The descending colon there was a 3-4 mm sessile polyp that was removed by cold biopsy. Rest of the descending colon, sigmoid colon, and rectum appeared normal. Scattered sigmoid diverticulosis seen. Retroflexion was performed in the rectum and no lesions were seen. The patient tolerated the procedure well. IMPRESSION: 3-4 mm sessile descending colon polyp status post cold biopsy Scattered sigmoid diverticulosis RECOMMENDATIONS: Findings of this examination were discussed with the patient as well as a family. She was advised to follow with the biopsy results. If the biopsy reveals adenoma she can have a repeat colonoscopy in 5 years..
[2021-11-27 07:41] VITALS: BP 127/80; PULSE 99; RESP 18
== END 2021-11-27 08:15 | disposition home or self-care (01) ==
LOC: ORWHC2ENDO 06:13
PROVIDERS: ATTEND Internal Medicine Gastroenterology
DX: Z12.11 Encounter for screening for malignant neoplasm of colon (principal); D12.4 Benign neoplasm of descending colon; K57.30 Diverticulosis of large intestine without perforation or abscess without bleeding; Z86.010 Personal history of colon polyps; I10 Essential (primary) hypertension; E78.5 Hyperlipidemia, unspecified; J44.9 Chronic obstructive pulmonary disease, unspecified; G47.33 Obstructive sleep apnea (adult) (pediatric); J98.6 Disorders of diaphragm; Z99.81 Dependence on supplemental oxygen; E07.9 Disorder of thyroid, unspecified; K21.9 Gastro-esophageal reflux disease without esophagitis; Z90.710 Acquired absence of both cervix and uterus; Z98.890 Other specified postprocedural states; Z97.2 Presence of dental prosthetic device (complete) (partial); Z79.890 Hormone replacement therapy; Z79.891 Long term (current) use of opiate analgesic; Z79.899 Other long term (current) drug therapy; Z79.84 Long term (current) use of oral hypoglycemic drugs; Z79.810 Long term (current) use of selective estrogen receptor modulators (SERMs); Z88.1 Allergy status to other antibiotic agents; Z88.8 Allergy status to other drugs, medicaments and biological substances
CPT/HCPCS: 88305; 45380; J2001; J2704

== ENCOUNTER → 2022-01-14 | Outpatient (CLI) | payer MEDICARE ==
--- NOTE | 2022-01-14 16:51 | BD ---
EXAMINATION TYPE: Axial Bone Density DATE OF EXAM: 01/14/2022 COMPARISON: 07/20/2006 CLINICAL HISTORY: 71 years year old Female. ICD-10 CODE: Z78.0 ASYMPTOMATIC MENOPAUSAL STATE Height: 5' Weight: 155 FRAX RISK QUESTIONS: Secondary Osteoporosis: 3. Menopause before 45: y RISK FACTORS HISTORY OF: Surgery to Spine/): lower When: 2019 Family History of Osteoporosis: y Postmenopausal woman: y Poor Health: y MEDICATIONS: Thyroid Medications: Which medication: Levothyroxine How Lon years Additional Medications: blood pressure, cholesterol, arthritis, neuro tin Additional History: EXAM MEASUREMENTS: Bone mineral density about the R hip (g/cm2): 0.791 Bone mineral density about the L hip (g/cm2): 0.874 T Score values are as follows: -----R Neck: -1.8 -----L Neck: -1.2 -----R Total: -0.5 -----L Total: -0.4 Bone mineral density has: Decreased 14.0% since study of: 07/20/2006 Bone mineral density about the L Wrist (g/cm2): 0.663 T Score values are as follows: -----Dist. R+U: -0.9 -----Prox. R+U: 0.4 -----Radius total: -0.2 FRAX%s: The graph provided illustrates a 10.4 chance for a major osteoporotic fx and a 1.8 chance for the hips probability for fx in 10 years time. IMPRESSION: Osteopenia (T Score between -2.5 and -1). There is slightly increased risk of fracture and the patient may be considered for treatment. Re-Screen 2-5 years. NOTE: T-SCORE=SD OF THE YOUNG ADULT MEAN.
== END | disposition home or self-care (01) ==
LOC: RADBDWWP 12:34
PROVIDERS: ATTEND Family Medicine
DX: M85.852 Other specified disorders of bone density and structure, left thigh (principal); M85.851 Other specified disorders of bone density and structure, right thigh; Z78.0 Asymptomatic menopausal state
CPT/HCPCS: 77080

== ENCOUNTER → 2022-09-05 | Outpatient (CLI) | payer MEDICARE ==
--- NOTE | 2022-09-08 08:45 | MM ---
Reason for Exam: Screening (asymptomatic). Last mammogram was performed 1 year(s) and 2 month(s) ago. Patient History: Menarche at age 14. First Full-Term at age 22. Left ovary removed at age 42. Right ovary removed at age 42. Hysterectomy at age 42. Postmenopausal. Estrogen for 3 years from age 42 until age 45. Niece had other cancer at or over age 50. Risk Values: Kelly 5 year model risk: 1.5%. NCI Lifetime model risk: 4.5%. Prior Study Comparison: 12/15/2018 Bilateral Screening Mammogram, [facility]. 03/16/2020 Bilateral Screening Mammogram, [facility]. 07/31/2021 Bilateral Screening Mammogram, [facility]. Tissue Density: The breast tissue is heterogeneously dense. This may lower the sensitivity of mammography. Findings: Analyzed By CAD. There is no suspicious group of microcalcifications or new suspicious mass in either breast. Overall Assessment: Benign, BI-RAD 2 Management: Screening Mammogram of both breasts in 1 year. A clinical breast exam by your physician is recommended on an annual basis and results should be correlated with mammographic findings. Electronically signed and approved by: Julio C Boltno M.D. Radiologis
== END | disposition home or self-care (01) ==
LOC: RADMAMWWP 11:00
PROVIDERS: ATTEND Family Medicine
DX: Z12.31 Encounter for screening mammogram for malignant neoplasm of breast (principal); Z78.0 Asymptomatic menopausal state; Z90.721 Acquired absence of ovaries, unilateral
CPT/HCPCS: 77063; 77067

== ENCOUNTER → 2023-10-13 | Outpatient (CLI) | payer MEDICARE ==
--- NOTE | 2023-10-13 18:16 | MM ---
Reason for Exam: Screening (asymptomatic). Last mammogram was performed 1 year(s) and 1 month(s) ago. Patient History: Menarche at age 14. First Full-Term at age 22. Left ovary removed at age 42. Right ovary removed at age 42. Hysterectomy at age 42. Postmenopausal. Estrogen for 3 years from age 42 until age 45. Niece had other cancer at or over age 50. Risk Values: Kelly 5 year model risk: 1.6%. NCI Lifetime model risk: 4.3%. Prior Study Comparison: 03/16/2020 Bilateral Screening Mammogram, [facility]. 07/31/2021 Bilateral Screening Mammogram, [facility]. 09/05/2022 Bilateral MG 3D screening mammo w/cad, [facility]. Tissue Density: The breast tissue is heterogeneously dense. This may lower the sensitivity of mammography. Findings: Analyzed By CAD. Benign vascular calcifications. Areas of asymmetric density remain unchanged. Chronic bilateral nodularity. There is no suspicious group of microcalcifications or new suspicious mass in either breast. Overall Assessment: Benign, BI-RAD 2 Management: Screening Mammogram of both breasts in 1 year. . Patient should continue monthly self-breast exams. A clinical breast exam by your physician is recommended on an annual basis. This exam should not preclude additional follow-up of suspicious palpable abnormalities. Note on Kelly scores and lifetime risk: 1. A Eklly score greater than 3% is considered moderate risk. If this is the case, consider specialist referral to assess eligibility for a risk reducing agent. 2. If overall lifetime risk for the development of breast cancer is 20% or higher, the patient may qualify for future screening with alternating mammogram and breast MRI. Electronically signed and approved by: Ryder Giron M.D. Radiologist
== END | disposition home or self-care (01) ==
LOC: RADMAMWWP 09:23
PROVIDERS: ATTEND Family Medicine
DX: Z12.31 Encounter for screening mammogram for malignant neoplasm of breast (principal); Z78.0 Asymptomatic menopausal state
CPT/HCPCS: 77063; 77067

== ENCOUNTER → 2025-01-02 | Outpatient (CLI) | payer MEDICARE ==
--- NOTE | 2025-01-02 11:02 | BD ---
EXAMINATION TYPE: Axial Bone Density DATE OF EXAM: 01/02/2025 CLINICAL HISTORY: 74 years old Female. ICD-10 CODE: Z78.0 MENOPAUSAL STATE , Additional History: Height: 59in Weight: 149lb FRAX RISK QUESTIONS: Family History (Parent hip fracture): yes Secondary Osteoporosis: 3. Menopause before 45: yes RISK FACTORS HISTORY OF: Surgery to Spine/Hip(right/left)/Wrist (right/left): lumbar surgery When: 2019 MEDICATIONS: Thyroid Medications: Which medication: Synthroid How Lon years EXAM MEASUREMENTS: Bone mineral densitometry was performed using the [employer] System. Bone mineral density about the R hip (g/cm2): 0.939 Bone mineral density about the L hip (g/cm2): 0.915 T Score values are as follows: -----R Neck: -1.6 -----L Neck: -1.5 -----R Total: -0.5 -----L Total: -0.7 Z Score values are as follows: -----R Neck: 0.2 -----L Neck: 0.2 -----R Total: 1.0 -----L Total: 0.8 Bone mineral density has: Decreased -2.8% since study of: 01-14-22 FRAX%s: The graph provided illustrates a 16.9% chance for a major osteoporotic fx and a 6% chance for the hips probability for fx in 10 years time. IMPRESSION: Normal (Values between +1 and -1 indicate normal bone mass). Consider repeating this study in 5 year s or sooner if there is some new clinical indication. NOTE: T-SCORE=SD OF THE YOUNG ADULT MEAN. [facility], , 01/02/2025 11:00 AM
== END | disposition home or self-care (01) ==
LOC: RADBDWWP 09:05
PROVIDERS: ATTEND Family Medicine
DX: M85.89 Other specified disorders of bone density and structure, multiple sites (principal); Z78.0 Asymptomatic menopausal state
CPT/HCPCS: 77080